=== PATIENT | female | born 1945 | race Caucasian/White ===

== ENCOUNTER → 2016-04-22 | Outpatient (CLI) | payer MEDICARE, BC ==
--- NOTE | 2016-04-22 17:08 | CT ---
EXAMINATION TYPE: CT abdomen pelvis w con DATE OF EXAM: 04/22/2016 5:01 PM COMPARISON: NONE HISTORY: Abdominal distension after eating. History of ulcerative colitis with total colectomy CT DLP: 784.8 mGycm CONTRAST: CT scan of the abdomen and pelvis is performed with Oral Contrast and with IV Contrast, patient injec alma with 100 mL of Omnipaque 300. FINDINGS: LUNG BASES-: No visible nodule. No infiltrate. Nodular pleural thickening right lung base. LIVER/GB: Fatty liver. Cystic lesion dome of the liver measuring 1.5 cm. No calcified gallstones. N o solid space occupying hepatic lesion. Biliary tree is of normal caliber. PANCREAS: No inflammation. No distinct mass. SPLEEN: No splenic enlargement. No lesion seen. ADRENALS: No nodule. No thickening. KIDNEYS/BLADDER: No hydronephrosis. No nephrolithiasis. Bilateral renal cystic changes. No solid r enal lesions identified. Urinary bladder grossly unremarkable. BOWEL: Normal bowel caliber. No inflammation. Right lower quadrant ostomy with parastomal hernia. No evidence for incarceration or obstruction. GENITAL ORGANS: No gross abnormality. LYMPH NODES: No greater than 1cm abdominal or pelvic lymph nodes are appreciated. AORTA: No significant abnormality. OSSEOUS STRUCTURES: No significant abnormality is seen. OTHER: No significant additional abnormality is seen. IMPRESSION: 1. Right lower quadrant ostomy with parastomal hernia. No evidence for incarceration or obstruction. 2. Fatty liver. 3. Cystic lesion dome of the liver. 4. Nodular pleural thickening right lower lobe.
--- NOTE | 2016-04-24 08:55 | MM ---
Reason for exam: screening (asymptomatic). Last mammogram was performed 1 year and 3 months ago. History: Patient is postmenopausal. Benign US biopsy breast VAD LT of the left breast, January 24, 2015. Stereotactic core biopsy of the left breast, February 20, 2004. Benign cyst aspiration of the left breast, January 20, 2004. Core biopsy of the left breast. 2 excisional biopsies of the left breast. Took estrogen for 1 year beginning at age 55. Took progesterone for 1 year beginning at age 55. Physical Findings: A clinical breast exam by your physician is recommended on an annual basis and results should be correlated with mammographic findings. MG 3D Screening Mammo W/Cad Bilateral CC and MLO view(s) were taken. Prior study comparison: January 24, 2015, left breast MG diagnostic mammo LT wo CAD. December 28, 2014, left breast MG work up mamm w CAD LT. There are scattered fibroglandular densities. No significant changes when compared with prior studies. ASSESSMENT: Benign, BI-RAD 2 RECOMMENDATION: Routine screening mammogram of both breasts in 1 year.
== END | disposition home or self-care (01) ==
LOC: RADCTMAIN 16:19
PROVIDERS: ATTEND Family Medicine
DX: Z12.31 Encounter for screening mammogram for malignant neoplasm of breast (principal); K76.0 Fatty (change of) liver, not elsewhere classified; K76.89 Other specified diseases of liver; K43.5 Parastomal hernia without obstruction or gangrene
CPT/HCPCS: 77063; 74177; G0202; Q9967

== ENCOUNTER → 2016-05-06 | Outpatient (CLI) | payer MEDICARE, BC ==
[2016-05-06 15:47] LABS: Blood Urea Nitrogen 13 mg/dL (7-17); Non-African American GFR(MDRD) >60 (>60 ml/min/1.73 sqM)
--- NOTE | 2016-05-06 16:26 | CT ---
EXAMINATION TYPE: CT chest w con DATE OF EXAM: 05/06/2016 4:14 PM COMPARISON: Previous CT scan of the abdomen and pelvis dated 04/22/2016 HISTORY: PT STATES OF LUNG NODULES FOUND ON ABDOMEN PELVIS STUDY DONE ON 04/22/16. CT DLP: 377.2 mGycm Automated exposure control for dose reduction was used. CONTRAST: CT scan of the chest is performed with IV Contrast, patient injected with 100 mL of Omnipaque 300. FINDINGS: Once again, there is nodular pleural thickening at the right lung base. No discrete pleural -based mass is seen. No lung parenchymal masses seen. There is dependent atelectasis at the lung base s. There is no significant axillary, internal mammary, mediastinal or hilar adenopathy. The heart is min imally enlarged. There is no pleural or pericardial fluid. There are multiple, simple appearing renal cysts bilaterally. There is a 1.5 cm low attenuating lesio n in the dome of the liver. This does not meet the requirements of a simple cyst. There is hypertrophic spondylosis within the spine. IMPRESSION: 1. Nodular pleural thickening, right lung base without pleural-based mass. 2. Simple appearing, bilateral renal cysts. 3. Lesion in the dome of the liver on the right does not meet the requirements of a simple cyst. Ultr asound of the liver would be suggested. 4. Degenerative changes within the spine.
== END | disposition home or self-care (01) ==
LOC: RADCTMAIN 15:09
PROVIDERS: ATTEND Family Medicine
DX: J92.9 Pleural plaque without asbestos (principal)
CPT/HCPCS: 82565; 84520; 71260; 36415; Q9967

== ENCOUNTER 2016-07-04 17:45 | Emergency (ER) | payer MEDICARE, BC ==
[2016-07-04 17:49] VITALS: RESP 18; TEMP 97.7
[2016-07-04] MEDS ORDERED: ONDANSETRON 4 MG/2 ML VIAL IVP STA (17:54)
[2016-07-04] MEDS ORDERED: DICYCLOMINE 10 MG/ML 2 ML AMP IM STA (17:54)
[2016-07-04] MEDS ORDERED: SODIUM CHLORIDE 0.9% 1,000 ML IV STA (17:54)
[2016-07-04] MEDS ORDERED: FAMOTIDINE 20 MG/2 ML VIAL IV STA (17:55)
--- NOTE | 2016-07-04 18:00 | ED ---
General Adult HPI - General Chief complaint: Abdominal Pain Stated complaint: Diarrhea Time Seen by Provider: 07/04/16 17:50 Source: patient, RN notes reviewed Mode of arrival: ambulatory Limitations: no limitations - History of Present Illness Initial comments: Patient is a pleasant 70-year-old female presenting to the emergency department diarrhea. Symptoms have been present for the past 2 days. Patient is having episodes of watery stool. Patient is having nausea without vomiting. Patient occasionally has mild abdominal cramping. No pain at this time. Patient has had decreased urine output recently. No recent antibiotic use. Patient has had an ileostomy for 25 years. - Related Data Home Medications Medication Instructions Recorded Confirmed Allopurinol [Zyloprim] 300 mg PO DAILY 01/02/16 07/04/16 Metoprolol Tartrate [Lopressor] 100 mg PO BID 01/02/16 07/04/16 Omeprazole 20 mg PO BID 01/02/16 07/04/16 amLODIPine [Norvasc] 10 mg PO DAILY 01/02/16 07/04/16 Acetaminophen Tab [Tylenol Tab] 1,000 mg PO Q6HR PRN 07/04/16 07/04/16 Warfarin [Coumadin] 2.5 mg PO MOTH 07/04/16 07/04/16 Warfarin [Coumadin] 5 mg PO SUTUWEFRSA 07/04/16 07/04/16 traMADol HCL [Ultram] 50 mg PO Q6H PRN 07/04/16 07/04/16 Previous Rx's Medication Instructions Recorded Dicyclomine [Bentyl] 20 mg PO QID PRN #12 tablet 07/04/16 Ondansetron Odt [Zofran Odt] 4 mg PO Q8HR PRN #10 tab 07/04/16 Allergies Allergy/AdvReac Type Severity Reaction Status Date / Time No Known Allergies Allergy Verified 07/04/16 18:03 Review of Systems ROS Statement: Those systems with pertinent positive or pertinent negative responses have been documented in the HPI. ROS Other: All systems not noted in ROS Statement are negative. Constitutional: Denies: fever Eyes: Denies: eye pain ENT: Denies: ear pain Respiratory: Denies: cough Cardiovascular: Denies: chest pain Endocrine: Denies: fatigue Gastrointestinal: Reports: nausea, diarrhea. Denies: vomiting Genitourinary: Reports: urgency Musculoskeletal: Denies: back pain Skin: Denies: rash Neurological: Denies: weakness Past Medical History Past Medical History: Atrial Fibrillation, GERD/Reflux Additional Past Medical History / Comment(s): gout, ulcerative colitis History of Any Multi-Drug Resistant Organisms: None Reported Past Surgical History: Tonsillectomy Additional Past Surgical History / Comment(s): ileostomy Past Psychological History: No Psychological Hx Reported Smoking Status: Never smoker Past Alcohol Use History: None Reported Past Drug Use History: None Reported General Exam Limitations: no limitations General appearance: alert, in no apparent distress Head exam: Present: atraumatic Eye exam: Present: normal appearance, PERRL ENT exam: Present: normal oropharynx Neck exam: Present: normal inspection Respiratory exam: Present: normal lung sounds bilaterally Cardiovascular Exam: Present: regular rate, normal rhythm GI/Abdominal exam: Present: soft, normal bowel sounds. Absent: distended, tenderness, guarding, rebound, rigid Extremities exam: Present: normal inspection. Absent: pedal edema, calf tenderness Neurological exam: Present: alert Psychiatric exam: Present: normal affect, normal mood Skin exam: Absent: rash Course Vital Signs 07/04/16 17:47 Temperature 97.7 F Pulse Rate 94 Respiratory 18 Rate Blood Pressure 117/76 O2 Sat by Pulse 96 Oximetry Medical Decision Making - Medical Decision Making Patient reevaluated and is starting to feel better. Patient does have mild dehydration. Patient was provided 1 L fluid bolus. Patient is comfortable with discharge. Abdomen soft and nontender. - Lab Data Result diagrams: 07/04/16 18:30 07/04/16 18:30 Lab Results 07/04/16 07/04/16 Range/Units 18:30 18:30 WBC 14.4 H (3.8-10.6) k/uL RBC 5.87 H (3.80-5.40) m/uL Hgb 17.5 H (11.4-16.0) gm/dL Hct 53.4 H (34.0-46.0) % MCV 91.0 (80.0-100.0) fL MCH 29.9 (25.0-35.0) pg MCHC 32.8 (31.0-37.0) g/dL RDW 14.2 (11.5-15.5) % Plt Count 313 (150-450) k/uL Neutrophils % 91 % Lymphocytes % 6 % Monocytes % 3 % Eosinophils % 1 % Basophils % 0 % Neutrophils # 13.0 H (1.3-7.7) k/uL Lymphocytes # 0.8 L (1.0-4.8) k/uL Monocytes # 0.4 (0-1.0) k/uL Eosinophils # 0.1 (0-0.7) k/uL Basophils # 0.0 (0-0.2) k/uL Sodium 144 (137-145) mmol/L Potassium 3.5 (3.5-5.1) mmol/L Chloride 102 (98-107) mmol/L Carbon Dioxide 24 (22-30) mmol/L Anion Gap 18 mmol/L BUN 29 H (7-17) mg/dL Creatinine 1.74 H (0.52-1.04) mg/dL Est GFR (MDRD) Af Amer 35 (>60 ml/min/1.73 sqM) Est GFR (MDRD) Non-Af 29 (>60 ml/min/1.73 sqM) Glucose 160 H (74-99) mg/dL Calcium 10.7 H (8.4-10.2) mg/dL Total Bilirubin 1.0 (0.2-1.3) mg/dL AST 27 (14-36) U/L ALT 32 (9-52) U/L Alkaline Phosphatase 90 (38-126) U/L Total Protein 8.8 H (6.3-8.2) g/dL Albumin 5.1 H (3.5-5.0) g/dL Amylase 80 (30-110) U/L Lipase 128 (23-300) U/L - Radiology Data Radiology results: image reviewed (Abdominal x-ray shows no acute process) Disposition Clinical Impression: Diarrhea Disposition: HOME SELF-CARE Condition: Stable Instructions: Acute Nausea and Vomiting (ED), Acute Diarrhea (ED) Additional Instructions: Please follow-up with primary care physician in the next couple of days for recheck. Please also follow-up to adult neurologist as planned. Return for fever, abdominal pain, uncontrolled diarrhea, uncontrolled vomiting, worsening symptoms or other concerns. Prescriptions: Dicyclomine [Bentyl] 20 mg PO QID PRN #12 tablet PRN Reason: Pain Ondansetron Odt [Zofran Odt] 4 mg PO Q8HR PRN #10 tab PRN Reason: Nausea Referrals: Byorn,Raghav, MD [Primary Care Provider] - 1-2 days
[2016-07-04 18:52] LABS: Basophils % (A) 0 %; CHCM 33.2; Eosinophils # (A) 0.1 k/uL (0-0.7); Eosinophils % (A) 1 %; HCT 53.4 % (34.0-46.0); HGB 17.5 gm/dL (11.4-16.0); Luc % (Auto) 1; Lymphocytes # (A) 0.8 k/uL (1.0-4.8); Lymphocytes % (A) 6 %; MCH 29.9 pg (25.0-35.0); MCHC 32.8 g/dL (31.0-37.0); Mean Platelet Volume 6.6; Monocytes # (A) 0.4 k/uL (0-1.0); Monocytes % (A) 3 %; Neutrophils % (A) 91 %; RBC 5.87 m/uL (3.80-5.40); RDW 14.2 % (11.5-15.5); WBC 14.4 k/uL (3.8-10.6); WBC (Perox) 14.63
[2016-07-04 19:03] LABS: Calcium 10.7 mg/dL (8.4-10.2); Potassium 3.5 mmol/L (3.5-5.1); Total Protein 8.8 g/dL (6.3-8.2)
--- NOTE | 2016-07-04 19:07 | XR ---
EXAMINATION TYPE: XR KUB DATE OF EXAM: 07/04/2016 7:03 PM COMPARISON: 07/31/2012 HISTORY: Fever and diarrhea TECHNIQUE: 2 views FINDINGS: There is no sign of intestinal obstruction or pneumoperitoneum. Fecal pattern is normal. Th ere is no sign of a mass. There are no pathologic calcifications over the kidneys. IMPRESSION: Nonacute abdomen. No change.
[2016-07-04 19:57] VITALS: BP 131/70; PULSE 69
== END 2016-07-04 19:55 | disposition home or self-care (01) ==
LOC: EC 17:45
DX: R19.7 Diarrhea, unspecified (principal); E86.0 Dehydration; R10.9 Unspecified abdominal pain; R11.0 Nausea; I48.91 Unspecified atrial fibrillation; K21.9 Gastro-esophageal reflux disease without esophagitis; M10.9 Gout, unspecified; Z79.01 Long term (current) use of anticoagulants; Z79.899 Other long term (current) drug therapy
CPT/HCPCS: 99284; 96374; 96375; 96361; 96372; 51798; 36415; 80053; 82150; 83690; 85025; 74000; J0500; J2405

== ENCOUNTER → 2016-07-10 | Outpatient (CLI) | payer MEDICARE, BC ==
--- NOTE | 2016-07-10 08:17 | US ---
EXAMINATION TYPE: US kidneys/renal and bladder DATE OF EXAM: 07/10/2016 7:07 AM COMPARISON: CT in PACS CLINICAL HISTORY: N17.9 Acute Renal Failure. Pt states urinary frequency, h/o bilat renal cysts EXAM MEASUREMENTS: Right Kidney: 11.2 x 6.4 x 4.7 cm Left Kidney: 10.2 x 6.0 x 5.2 cm Right Kidney: No evidence of hydro, multicystic, largest medial= 5.0 x 4.0 x 5.5 cm Left Kidney: No evidence of hydro, multicystic, largest at mid= 3.1 x 3.0 x 3.2 cm Bladder: wnl Bilateral Jets seen: No There is no evidence for hydronephrosis at this point in time. No nephrolithiasis is seen. Bilateral cysts as noted above. The urinary bladder is anechoic. Bilateral ureteral jets are seen. IMPRESSION: Bilateral renal cystic changes as noted.
== END | disposition home or self-care (01) ==
LOC: RADUSWWP 06:48
PROVIDERS: ATTEND Family Medicine
DX: N28.1 Cyst of kidney, acquired (principal)
CPT/HCPCS: 76770

== ENCOUNTER 2016-07-31 08:13 | Day surgery (SDC) | payer MEDICARE, BC ==
[~2016-07-31 08:13] MED LIST: LACTATED RINGERS 1,000 ML IV SCH; LIDOCAINE 1% 20 ML VIAL (10MG/ML) FOR IV START INTRADERMA PRN
[2016-07-31 08:55] VITALS: TEMP 97.8
[2016-07-31] MEDS ORDERED: LIDOCAINE 1% INJ 10MG/ML (20 ML MDV) ONE (09:37)
[2016-07-31] MEDS ORDERED: PROPOFOL 10 MG/ML 20 ML VIAL IV ONE (09:37)
[2016-07-31 09:45] LABS: Partial Thromboplastin Time 23.4 sec (22.0-30.0); Prothrombin Time 10.1 sec (9.0-12.0)
--- NOTE | 2016-07-31 09:50 | P.PCN ---
Date of Procedure: 07/31/16 Procedure(s) Performed: BRIEF HISTORY: Patient is a 71-year-old, pleasant, white female, scheduled for an elective upper endoscopy as part of evaluation of persistent epigastric pain for the last several months duration. She complains of post banding abdominal bloating and weight loss of 30 pounds in the last 6 months. Because of the symptoms she is scheduled for an upper endoscopy to evaluate further. She was given a trial of Prilosec 20 mg daily for history of GERD which helped the heartburn.. PROCEDURE PERFORMED: Esophagogastroduodenoscopy with biopsy. PREOPERATIVE DIAGNOSIS: Epigastric pain, abdominal bloating and progressive weight loss of 6 months duration. IV sedation per anesthesia. PROCEDURE: After informed consent was obtained, the patient was brought into the endoscopy unit. IV sedation was administered by Anesthesia under continuous monitoring. Initially the Olympus GIF-140 video endoscope was inserted into the mouth. Esophagus intubated without any difficulty. It was gradually advanced into the stomach and duodenum and carefully examined. The bulb and the second part of the duodenum appeared normal. Biopsies were done from the cecum duodenum to rule out celiac disease. The scope at this time was withdrawn to the stomach, adequately insufflated with air, and upon careful examination, mucosa of the antrum had mild diffuse gastritis and biopsies were done from this area. The, body, cardia and the fundus appeared normal. The scope was then withdrawn into the esophagus. The GE junction was located at 39 cm from the incisors. Small hiatal hernia noted. The esophagus appeared normal. There were no erosions or ulcerations seen and the patient tolerated the procedure well. IMPRESSION: 1. Mild antral gastritis. 2. Small hiatal hernia but no evidence of esophagitis or Mckeon's esophagus. RECOMMENDATIONS: The findings of this examination were discussed with the patient as well as her family. She was advised to follow with the biopsy results. She will continue with her current medications and she'll follow up in office in 3-4 weeks.
[2016-07-31 10:01] VITALS: BP 115/64; PULSE 87; RESP 18
== END 2016-07-31 10:39 | disposition home or self-care (01) ==
LOC: ORWHC2ENDO 08:13
PROVIDERS: ATTEND Internal Medicine Gastroenterology
DX: K29.50 Unspecified chronic gastritis without bleeding (principal); K44.9 Diaphragmatic hernia without obstruction or gangrene; K21.9 Gastro-esophageal reflux disease without esophagitis; I10 Essential (primary) hypertension; I48.91 Unspecified atrial fibrillation; M10.9 Gout, unspecified; Z79.01 Long term (current) use of anticoagulants; Z79.899 Other long term (current) drug therapy
CPT/HCPCS: 88305; 85610; 85730; 88342; 43239; J2001; J2704

== ENCOUNTER → 2016-12-05 | Outpatient (CLI) | payer MEDICARE, BC ==
[2016-12-05 16:38] LABS: Anion Gap 13 mmol/L; Blood Urea Nitrogen 18 mg/dL (7-17); Calcium 9.8 mg/dL (8.4-10.2); Carbon Dioxide 25 mmol/L (22-30); Chloride 106 mmol/L (98-107); Glucose 114 mg/dL (74-99); Non-African American GFR(MDRD) >60 (>60 ml/min/1.73 sqM); Potassium 3.7 mmol/L (3.5-5.1); Sodium 144 mmol/L (137-145)
[2016-12-05 16:41] LABS: Basophils % (A) 0 %; CH 30.6; CHCM 33.5; Eosinophils # (A) 0.1 k/uL (0-0.7); Eosinophils % (A) 1 %; HDW 2.91; Luc # (Auto) 0.12; Luc % (Auto) 1; Lymphocytes # (A) 1.4 k/uL (1.0-4.8); Lymphocytes % (A) 14 %; MCH 29.5 pg (25.0-35.0); Mean Platelet Volume 7.3; Monocytes # (A) 0.3 k/uL (0-1.0); Monocytes % (A) 3 %; Neutrophils # (A) 8.1 k/uL (1.3-7.7); Neutrophils % (A) 81 %; RDW 15.1 % (11.5-15.5); WBC 10.1 k/uL (3.8-10.6)
== END | disposition home or self-care (01) ==
LOC: LABPAT 15:27
PROVIDERS: ATTEND Physician Assistant
DX: Z01.812 Encounter for preprocedural laboratory examination (principal); I10 Essential (primary) hypertension; N20.1 Calculus of ureter; Z79.899 Other long term (current) drug therapy
CPT/HCPCS: 80048; 85025

== ENCOUNTER 2016-12-09 07:48 | Day surgery (SDC) | payer MEDICARE, BC ==
[2016-12-05 14:35] VITALS: BMI 27.2
[~2016-12-09 07:48] MED LIST changes: +DEXAMETHASONE SOD PHOSPHATE 10 MG/ML 1 ML VIAL IV ONE; +HYDROmorphone 1 MG/ML 1 ML SYRINGE IVP PRN; -LIDOCAINE 1% 20 ML VIAL (10MG/ML) FOR IV START INTRADERMA PRN; +ONDANSETRON 4 MG/2 ML VIAL IVP ONE; +Pre Op ABX Message 1 EACH MISC MISCELLANE ONE
--- NOTE | 2016-12-09 07:48 | XR ---
Abdomen HISTORY: Left-sided kidney stone Frontal view of the abdomen on 2 images correlated to prior abdomen 07/04/2016 Lung bases are clear. No evident pneumoperitoneum or bowel obstruction. Degenerative disc changes are present in the visualized spine. Overlying bowel gas may obscure underlying detail. Calcification ov erlying the kidneys not identified with certainty. Phleboliths noted in the pelvis. IMPRESSION: Nonspecific findings described above
[2016-12-09 08:16] VITALS: BP 142/83; PULSE 80; RESP 16; TEMP 99.2
[2016-12-09] MEDS ORDERED: LIDOCAINE 1% 20 ML VIAL (10MG/ML) FOR IV START INTRADERMA ONE (08:34)
[2016-12-09 08:56] LABS: INR 1.2 (<1.2); Prothrombin Time 11.9 sec (9.0-12.0)
--- NOTE | 2016-12-09 09:29 | P.PN ---
Subjective Principal diagnosis: The patient came for shockwave lithotripsy today. She has a history of stones. She was seen in the office 2 weeks ago with a KUB from [facility] which showed a 16 x 9 mm left renal pelvic stone. The stone was not easily seen today. I reviewed her CAT scan from 04/22/2016 here at [facility] and there is no stones in the kidney. Given that she had no stone at all in March it is unlikely that she would've grown that size of stone over the last 8 months. I will not proceed with shockwave lithotripsy today. She'll need a follow-up CAT scan to see if indeed there is even any stone seen. Unfortunately I do not have access to that KUB from November 13 of this year. The patient understands. She did not receive any anesthetic. Objective - Vital Signs Vital signs: Vital Signs Temp 99.2 F 12/09/16 08:14 Pulse 80 12/09/16 08:14 Resp 16 12/09/16 08:14 BP 142/83 12/09/16 08:14 Pulse Ox 95 12/09/16 08:14 Intake & Output 12/08/16 12/09/16 12/09/16 18:59 06:59 18:59 Intake Total 300 Balance 300 Intake: IV 300 - Labs Labs: Abnormal Lab Results - Last 24 Hours (Table) 12/09/16 Range/Units 08:30 INR 1.2 H (<1.2)
== END 2016-12-09 09:49 | disposition home or self-care (01) ==
LOC: ORWHC2ENDO 07:48
PROVIDERS: ATTEND Urology
DX: N20.0 Calculus of kidney (principal); Z53.8 Procedure and treatment not carried out for other reasons; I10 Essential (primary) hypertension; Z79.2 Long term (current) use of antibiotics; Z79.01 Long term (current) use of anticoagulants; Z79.891 Long term (current) use of opiate analgesic; Z79.899 Other long term (current) drug therapy
CPT/HCPCS: 85610; 74000; 50590; J1100; J2405

== ENCOUNTER → 2016-12-26 | Outpatient (CLI) | payer MEDICARE, BC ==
[2016-12-26 08:50] LABS: Blood Urea Nitrogen 15 mg/dL (7-17); Non-African American GFR(MDRD) >60 (>60 ml/min/1.73 sqM)
--- NOTE | 2016-12-26 10:30 | CT ---
EXAMINATION TYPE: CT chest w con, CT abdomen pelvis wo con DATE OF EXAM: 12/26/2016 COMPARISON: 05/06/2016 and abdomen pelvis dated 04/22/2016 HISTORY: Lung nodule (accession [id number]), Renal stone (accession [id number]) CT DLP: 758.35 (accession [id number]), 1117.80 (accession [id number]) mGycm. Automated Exposure Control for Dose Reduction was Utilized. TECHNIQUE: CT scan of the thorax is performed following with IV Contrast, patient injected with 100 ml mL of Omnipaque 300. Abdominal and pelvic CT was performed without contrast. FINDINGS: CHEST: LUNGS: Nodular pleural thickening along the right posterior lower lobe is measured on series 8 image 39 elongated over 3.4 cm. This appears similar in comparison to the prior exam. No calcifications are seen in association. There is redemonstration of surrounding atelectasis and additional minimal scat tered areas of bibasilar subsegmental atelectasis. No pulmonary mass or new pulmonary nodule is ident ified. The lungs are grossly clear, there is no concerning parenchymal mass or nodule identified. T here is no pleural effusion or pneumothorax seen. The tracheobronchial tree is patent. MEDIASTINUM: There are no greater than 1 cm hilar or mediastinal lymph nodes. No pericardial effusi on is seen. OTHER: A single 1.1 x 1.2 cm hypoattenuated left thyroid nodule is seen within an enlarged substernal thyroid gland. Thyroid ultrasound could be performed for further evaluation although this appears st able in comparison to the prior exam of 05/06/2016. ABDOMEN AND PELVIS: Lack of intravenous contrast within the abdomen limits evaluation of the hollow a nd solid viscera. LUNG BASES: No significant abnormality is appreciated. LIVER/GB: 1.3 cm hepatic cyst is seen at the margin of segment 8 and segment 7 as well as smaller hyp oattenuated lesions within segment 7 and segment 8 that are subcentimeter (4 to 5 mm) and too small t o accurately characterize. Decreased attenuation of the hepatic parenchyma is seen diffusely compatib le with hepatic steatosis. No intrahepatic biliary duct dilatation. PANCREAS: No significant abnormality is seen. SPLEEN: No significant abnormality is seen. ADRENALS: No significant abnormality is seen. KIDNEYS: Multiple fluid attenuated simple cortically based renal cysts, a few with thin peripheral pu nctate calcifications are seen with the largest exophytically emanating from the right anterior infer ior pole measuring 4.5 x 4.7 cm. However also from the right lower pole just inferior to the largest cyst there is a 1.4 cm solid-appearing renal mass on series 4 image 41 with central area of hypodensi ty that does not appear to have Hounsfield unit of fat. Bilateral renal sinus cysts are also apprecia alma as well as a punctate 1 mm left mid pole nonobstructing renal calculus. No evidence of hydronephr osis, right-sided nephrolithiasis, or perinephric fat stranding. FREE AIR: No free air is visualized RETROPERITONEAL ADENOPATHY: None visualized REPRODUCTIVE ORGANS: No significant abnormality is seen URINARY BLADDER: No significant abnormality is seen. PELVIC ADENOPATHY: None visualized. OSSEOUS STRUCTURES: Postsurgical changes are seen of the lower lumbar spine in addition to degenerati ve changes of the thoracolumbar and lumbosacral spine. Compression deformity of the L2 vertebral body is present with approximately 6 mm retropulsion of the superior endplate into the spinal canal creat ing moderate spinal canal stenosis. BOWEL: Right-sided ostomy contains loops of small bowel in addition to the ostomy loop (parastomal h ernia). No bowel enlargement to suggest incarceration or obstruction. OTHER: Multilevel degenerative changes are seen of the thoracolumbar and lumbosacral spine. IMPRESSION: 1. UNCHANGED NODULAR PLEURAL THICKENING OF THE RIGHT POSTERIOR LOWER PLEURAL SURFACE. NO NEW PULMONAR Y NODULE OR MASS. NO ADENOPATHY WITHIN THE CHEST, ABDOMEN OR PELVIS. 2. INCOMPLETELY CHARACTERIZED SOLID RIGHT LOWER POLE 1.4 CM MASS FOR WHICH FURTHER EVALUATION WITH DY NAMIC CONTRAST-ENHANCED CT ABDOMEN OR MRI (RENAL MASS PROTOCOL) IS RECOMMENDED. 3. PUNCTATE NONOBSTRUCTING 2 MM LEFT MIDPOLE RENAL CALCULUS. 4. HEPATIC STEATOSIS, HEPATIC CYSTS AND SMALLER HYPOATTENUATED HEPATIC LESIONS THAT ARE TOO SMALL TO ACCURATELY CHARACTERIZE BUT LIKELY REPRESENT HEPATIC CYSTS. 5. BILATERAL ADDITIONAL SIMPLE APPEARING RENAL CYSTS AND RENAL SINUS CYSTS. 6. 1.2 CM LEFT THYROID NODULE WHICH COULD BE FURTHER EVALUATED WITH THYROID ULTRASOUND IF CLINICALLY INDICATED.
== END | disposition home or self-care (01) ==
LOC: RADCTMAIN 07:50
PROVIDERS: ATTEND Urology
DX: N20.0 Calculus of kidney (principal); J92.9 Pleural plaque without asbestos; K76.0 Fatty (change of) liver, not elsewhere classified; J98.4 Other disorders of lung
CPT/HCPCS: 82565; 84520; 71260; 74176; 36415; Q9967

== ENCOUNTER → 2017-04-23 | Outpatient (CLI) | payer MEDICARE, BC ==
--- NOTE | 2017-04-25 07:07 | MM ---
Reason for exam: screening (asymptomatic). Last mammogram was performed 1 year ago. History: Patient is postmenopausal. Benign US biopsy breast VAD LT of the left breast, January 24, 2015. Stereotactic core biopsy of the left breast, February 20, 2004. Benign cyst aspiration of the left breast, January 20, 2004. Core biopsy of the left breast. 2 excisional biopsies of the left breast. Took estrogen for 1 year beginning at age 55. Took progesterone for 1 year beginning at age 55. Physical Findings: A clinical breast exam by your physician is recommended on an annual basis and results should be correlated with mammographic findings. MG 3D Screening Mammo W/Cad Bilateral CC and MLO view(s) were taken. Prior study comparison: April 22, 2016, bilateral MG 3d screening mammo w/cad. January 24, 2015, left breast MG diagnostic mammo LT wo CAD. The breast tissue is heterogeneously dense. This may lower the sensitivity of mammography. Lateral right breast nodule was present back on 2012. No significant changes when compared with prior studies. ASSESSMENT: Negative, BI-RAD 1 RECOMMENDATION: Routine screening mammogram of both breasts in 1 year.
== END | disposition home or self-care (01) ==
LOC: RADMAMWWP 09:19
PROVIDERS: ATTEND Family Medicine
DX: Z12.31 Encounter for screening mammogram for malignant neoplasm of breast (principal)
CPT/HCPCS: 77063; 77067

== ENCOUNTER 2017-10-24 11:25 | Observation (INO) | payer MEDICARE, BC ==
[2017-10-24] MEDS ORDERED: levETIRAcetam IV 1,000 MG in SALINE 1 100ML.BAG IVPB STA (11:34)
--- NOTE | 2017-10-24 12:05 | ED ---
General Adult HPI - General Chief complaint: Chest Pain Stated complaint: Chest/jaw pain Time Seen by Provider: 10/24/17 11:34 Source: patient, RN notes reviewed, old records reviewed Mode of arrival: wheelchair Limitations: no limitations - History of Present Illness Initial comments: 72-year-old female history of hypertension and atrial fibrillation presents for evaluation of chest pain. Patient has had intermittent chest pressure over the past 2 weeks. This is been nearly every day. Pain has been at rest. She also complains of exertional dyspnea. Patient reports trauma pain associated with her chest pressure. Denies nausea or vomiting. She does complain of some diaphoresis with these episodes. No abdominal pain. No fever or chills. No cough. Denies lower extremity swelling at the time my evaluation, however she states she has had some swelling within the past week. No history of CAD, no history of heart failure. Patient is completely pain-free at the time my evaluation. - Related Data Home Medications Medication Instructions Recorded Confirmed Allopurinol [Zyloprim] 300 mg PO DAILY 01/02/16 10/24/17 Metoprolol Tartrate [Lopressor] 100 mg PO BID 01/02/16 10/24/17 Omeprazole 20 mg PO BID 01/02/16 10/24/17 amLODIPine [Norvasc] 10 mg PO DAILY 01/02/16 10/24/17 Warfarin [Coumadin] 2.5 mg PO SUTUWEFR 07/04/16 10/24/17 Warfarin [Coumadin] 5 mg PO MOTHSA 07/04/16 10/24/17 traMADol HCL [Ultram] 50 mg PO Q6H PRN 07/04/16 10/24/17 Ergocalciferol [Vitamin D2] 50,000 unit PO Q14D 10/24/17 10/24/17 L.acidoph,Paracasei, B.lactis 1 cap PO DAILY 10/24/17 10/24/17 [Probiotic] Magnesium Gluconate [Magonate] 500 mg PO DAILY 10/24/17 10/24/17 Multivitamins, Thera [Multivitamin 1 tab PO DAILY 10/24/17 10/24/17 (formulary)] Allergies Allergy/AdvReac Type Severity Reaction Status Date / Time No Known Allergies Allergy Verified 10/24/17 12:04 Review of Systems ROS Statement: Those systems with pertinent positive or pertinent negative responses have been documented in the HPI. ROS Other: All systems not noted in ROS Statement are negative. Past Medical History Past Medical History: Atrial Fibrillation, GERD/Reflux, Hypertension Additional Past Medical History / Comment(s): Hx of Ulcerative Colitis and gout History of Any Multi-Drug Resistant Organisms: None Reported Past Surgical History: Section, Tonsillectomy Additional Past Surgical History / Comment(s): ileostomy, COLONOSCOPY, EGD, BILAT CATARACTS Past Anesthesia/Blood Transfusion Reactions: No Reported Reaction Past Psychological History: No Psychological Hx Reported Smoking Status: Never smoker Past Alcohol Use History: None Reported Past Drug Use History: None Reported - Past Family History Mother Family Medical History: Cancer Father Family Medical History: Cancer General Exam Limitations: no limitations General appearance: alert, in no apparent distress Head exam: Present: atraumatic, normocephalic Eye exam: Present: normal appearance, PERRL, EOMI ENT exam: Present: normal exam Neck exam: Present: normal inspection. Absent: tenderness, meningismus Respiratory exam: Present: normal lung sounds bilaterally. Absent: respiratory distress, wheezes Cardiovascular Exam: Present: regular rate, normal rhythm GI/Abdominal exam: Present: soft. Absent: distended, tenderness, guarding Extremities exam: Present: normal inspection, normal capillary refill. Absent: pedal edema, joint swelling, calf tenderness Neurological exam: Present: alert, oriented X3, CN II-XII intact. Absent: motor sensory deficit Psychiatric exam: Present: normal affect, normal mood Skin exam: Present: warm, dry, intact. Absent: cyanosis, diaphoretic Course Vital Signs 10/24/17 10/24/17 10/24/17 11:27 12:30 13:30 Temperature 98.3 F Pulse Rate 77 74 75 Respiratory 18 20 20 Rate Blood Pressure 148/97 158/72 156/65 O2 Sat by Pulse 98 96 99 Oximetry EKG Findings - EKG Comments: EKG Findings:: EKG: Normal sinus rhythm, rate of 75, W[place] interval 154, QRS duration 76, QTC [address] segment elevation or depression Medical Decision Making - Medical Decision Making 72-year-old presenting with intermittent chest pain over the past one week. EKG is nonischemic. Chest x-ray negative for acute cardiopulmonary disease. CBC is unremarkable, INR therapeutic 2.1, troponin is negative. Patient will be observed for serial cardiac enzymes and cardiology consultation. - Lab Data Result diagrams: 10/24/17 11:57 10/24/17 11:57 Lab Results 10/24/17 10/24/17 10/24/17 Range/Units 11:57 11:57 11:57 WBC 10.0 (3.8-10.6) k/uL RBC 5.09 (3.80-5.40) m/uL Hgb 14.9 (11.4-16.0) gm/dL Hct 44.9 (34.0-46.0) % MCV 88.3 (80.0-100.0) fL MCH 29.2 (25.0-35.0) pg MCHC 33.1 (31.0-37.0) g/dL RDW 14.5 (11.5-15.5) % Plt Count 238 (150-450) k/uL Neutrophils % 80 % Lymphocytes % 13 % Monocytes % 3 % Eosinophils % 2 % Basophils % 0 % Neutrophils # 8.1 H (1.3-7.7) k/uL Lymphocytes # 1.3 (1.0-4.8) k/uL Monocytes # 0.3 (0-1.0) k/uL Eosinophils # 0.2 (0-0.7) k/uL Basophils # 0.0 (0-0.2) k/uL PT (9.0-12.0) sec INR (<1.2) APTT (22.0-30.0) sec Sodium 141 (137-145) mmol/L Potassium 4.4 (3.5-5.1) mmol/L Chloride 106 (98-107) mmol/L Carbon Dioxide 27 (22-30) mmol/L Anion Gap 8 mmol/L BUN 16 (7-17) mg/dL Creatinine 0.69 (0.52-1.04) mg/dL Est GFR (CKD-EPI)AfAm >90 (>60 ml/min/1.73 sqM) Est GFR (CKD-EPI)NonAf 89 (>60 ml/min/1.73 sqM) Glucose 107 H (74-99) mg/dL Calcium 9.4 (8.4-10.2) mg/dL Magnesium 1.8 (1.6-2.3) mg/dL Total Bilirubin 0.6 (0.2-1.3) mg/dL AST 22 (14-36) U/L ALT 28 (9-52) U/L Alkaline Phosphatase 68 (38-126) U/L Total Creatine Kinase 58 (30-135) U/L CK-MB (CK-2) 0.8 (0.0-2.4) ng/mL CK-MB (CK-2) Rel Index 1.4 Troponin I <0.012 (0.000-0.034) ng/mL NT-Pro-B Natriuret Pep pg/mL Total Protein 6.9 (6.3-8.2) g/dL Albumin 4.1 (3.5-5.0) g/dL 10/24/17 10/24/17 Range/Units 11:57 11:57 WBC (3.8-10.6) k/uL RBC (3.80-5.40) m/uL Hgb (11.4-16.0) gm/dL Hct (34.0-46.0) % MCV (80.0-100.0) fL MCH (25.0-35.0) pg MCHC (31.0-37.0) g/dL RDW (11.5-15.5) % Plt Count (150-450) k/uL Neutrophils % % Lymphocytes % % Monocytes % % Eosinophils % % Basophils % % Neutrophils # (1.3-7.7) k/uL Lymphocytes # (1.0-4.8) k/uL Monocytes # (0-1.0) k/uL Eosinophils # (0-0.7) k/uL Basophils # (0-0.2) k/uL PT 19.1 H (9.0-12.0) sec INR 2.1 H (<1.2) APTT 29.6 (22.0-30.0) sec Sodium (137-145) mmol/L Potassium (3.5-5.1) mmol/L Chloride (98-107) mmol/L Carbon Dioxide (22-30) mmol/L Anion Gap mmol/L BUN (7-17) mg/dL Creatinine (0.52-1.04) mg/dL Est GFR (CKD-EPI)AfAm (>60 ml/min/1.73 sqM) Est GFR (CKD-EPI)NonAf (>60 ml/min/1.73 sqM) Glucose (74-99) mg/dL Calcium (8.4-10.2) mg/dL Magnesium (1.6-2.3) mg/dL Total Bilirubin (0.2-1.3) mg/dL AST (14-36) U/L ALT (9-52) U/L Alkaline Phosphatase (38-126) U/L Total Creatine Kinase (30-135) U/L CK-MB (CK-2) (0.0-2.4) ng/mL CK-MB (CK-2) Rel Index Troponin I (0.000-0.034) ng/mL NT-Pro-B Natriuret Pep 183 pg/mL Total Protein (6.3-8.2) g/dL Albumin (3.5-5.0) g/dL Disposition Clinical Impression: Chest pain Disposition: ADMITTED IP TO THIS [facility] Condition: Stable Is patient prescribed a controlled substance at d/c from ED?: No Referrals: Oskar Sánchez DO [Primary Care Provider] - 1-2 days Decision to Admit Reason: Admit from EC Decision Date: 10/24/17 Decision Time: 14:06
[2017-10-24 12:31] LABS: Basophils % (A) 0 %; Eosinophils # (A) 0.2 k/uL (0-0.7); Eosinophils % (A) 2 %; HCT 44.9 % (34.0-46.0); HGB 14.9 gm/dL (11.4-16.0); Lymphocytes # (A) 1.3 k/uL (1.0-4.8); Lymphocytes % (A) 13 %; MCH 29.2 pg (25.0-35.0); MCHC 33.1 g/dL (31.0-37.0); MCV 88.3 fL (80.0-100.0); Mean Platelet Volume 6.6; Monocytes # (A) 0.3 k/uL (0-1.0); Monocytes % (A) 3 %; Neutrophils # (A) 8.1 k/uL (1.3-7.7); Neutrophils % (A) 80 %; Platelet Count 238 k/uL (150-450); RBC 5.09 m/uL (3.80-5.40); RDW 14.5 % (11.5-15.5)
[2017-10-24 12:40] LABS: ALT 28 U/L (9-52); AST 22 U/L (14-36); Albumin 4.1 g/dL (3.5-5.0); Alkaline Phosphatase 68 U/L (38-126); Anion Gap 8 mmol/L; Blood Urea Nitrogen 16 mg/dL (7-17); Calcium 9.4 mg/dL (8.4-10.2); Carbon Dioxide 27 mmol/L (22-30); Chloride 106 mmol/L (98-107); Glucose 107 mg/dL (74-99); Magnesium 1.8 mg/dL (1.6-2.3); Potassium 4.4 mmol/L (3.5-5.1); Sodium 141 mmol/L (137-145); Total Bilirubin 0.6 mg/dL (0.2-1.3); Total Protein 6.9 g/dL (6.3-8.2)
[2017-10-24 12:42] LABS: INR 2.1 (<1.2); Partial Thromboplastin Time 29.6 sec (22.0-30.0); Prothrombin Time 19.1 sec (9.0-12.0)
[2017-10-24 12:49] LABS: Creatine Kinase 58 U/L (30-135)
[2017-10-24 13:02] LABS: Creatine Kinase MB 0.8 ng/mL (0.0-2.4); Troponin I <0.012 ng/mL (0.000-0.034)
--- NOTE | 2017-10-24 13:04 | XR ---
EXAMINATION TYPE: XR chest 2V DATE OF EXAM: 10/24/2017 COMPARISON: Chest CT dated 12/26/2016 HISTORY: Chest pain and weakness TECHNIQUE: Frontal and lateral views of the chest are obtained. FINDINGS: There is no focal air space opacity, pleural effusion, or pneumothorax seen. The cardiac silhouette size is within normal limits. There is mild diffuse osseous demineralization. Mild multi level degenerative changes of the thoracic spine are also noted. IMPRESSION: No acute cardiopulmonary process.
[2017-10-24] MEDS ORDERED: NALOXONE 0.4 MG/ML 1 ML VIAL IV PRN (14:02)
[2017-10-24] MEDS ORDERED: WARFARIN 2.5 MG TAB PO SCH (14:15)
--- NOTE | 2017-10-24 15:13 | P.CRDCN ---
History of Present Illness History of present illness: Mrs. Holbrook is a pleasant 72-year-old female past medical history significant for paroxysmal atrial fibrillation on long-term anticoagulation, hypertension and gastroesophageal reflux disease. She denies history of coronary artery disease, diabetes mellitus or dyslipidemia. She follows with Dr. Grijalva in the office. She states for the lip previous week or so she has been feeling symptoms of palpitations or fluttering in her chest. With these symptoms, she is also noticing a discomfort in her jaw, shortness of breath and mild dizziness. The symptoms began with no specific aggravating factor and vary in length. She has also noticed that she is more short of breath exertion , for example when she walks from the couch to the bathroom she has to stop to take a breath because she feels as though her breathing is labored. This is new for her and has not occurred in the past. At the time of exam she is seen resting comfortably in bed in no acute distress. She denies any further symptoms of ongoing chest pain, palpitations, shortness of breath or dizziness. She denies radiation of the pain to the arm or back. She does also denies PND , orthopnea, fever, chills or cough. EKG reveals sinus mechanism with no acute ST or T wave abnormalities noted. Chest x-ray is negative for an acute cardiopulmonary process. Laboratory data reviewed, hemoglobin 14.9, platelets 238, INR 2.1, potassium 4.4 , magnesium 1.8, proBNP 183 cardiac enzymes negative 1. Current cardiac medications include Coumadin, amlodipine 10 mg and Lopressor 100 mg twice a day. Most recent echocardiogram performed in the office 2014 reveals preserved left ventricular systolic function with ejection fraction 55-60%. Review of Systems At the time of my exam: CONSTITUTIONAL: Denies fever. Denies chills. EYES: Denies blurred vision. Denies vision changes. Denies eye pain. EARS, NOSE, MOUTH & THROAT: Denies headache. Denies sore throat. Denies ear pain. CARDIOVASCULAR: Denies chest pain. Denies shortness of breath. Denies orthopnea. Denies PND. Denies palpitations. RESPIRATORY: Denies cough. GASTROINTESTINAL: Denies abdominal pain. Denies diarrhea. Denies constipation. Denies nausea. Denies vomiting. MUSCULOSKELETAL: Denies myalgias. INTEGUMENTARY: Denies pruitis. Denies rash. NEUROLOGIC: Denies numbness. Denies tingling. Denies weakness. PSYCHIATRIC: Denies anxiety. Denies depression. ENDOCRINE: Denies fatigue. Denies weight change. Denies polydipsia. Denies polyurina. GENITOURINARY: Denies burning, hematuria or urgency with micturation. HEMATOLOGIC: Denies history of anemia. Denies bleeding. Past Medical History Past Medical History: Atrial Fibrillation, GERD/Reflux, Hypertension Additional Past Medical History / Comment(s): Hx of Ulcerative Colitis(ileostomy ) and gout, renal stone,uti, 2016 - vertebra/compression fx d/t fall when dancing. History of Any Multi-Drug Resistant Organisms: None Reported Past Surgical History: Section, Tonsillectomy Additional Past Surgical History / Comment(s): ileostomy, COLONOSCOPY, EGD, BILAT CATARACTS, lithrotripsy Past Anesthesia/Blood Transfusion Reactions: No Reported Reaction Additional Past Anesthesia/Blood Transfusion Reaction / Comment(s): blood transfusion in past-no reaction Past Psychological History: No Psychological Hx Reported Additional Psychological History / Comment(s): pt is independant, lives with ex and 2 adult sons. no medical equipment, no home care services Smoking Status: Never smoker Past Alcohol Use History: None Reported Past Drug Use History: None Reported - Past Family History Mother Family Medical History: Cancer Father Family Medical History: Cancer Medications and Allergies Home Medications Medication Instructions Recorded Confirmed Type Allopurinol [Zyloprim] 300 mg PO DAILY 01/02/16 10/24/17 History Metoprolol Tartrate [Lopressor] 100 mg PO BID 01/02/16 10/24/17 History Omeprazole 20 mg PO BID 01/02/16 10/24/17 History amLODIPine [Norvasc] 10 mg PO DAILY 01/02/16 10/24/17 History Warfarin [Coumadin] 2.5 mg PO SUTUWEFR 07/04/16 10/24/17 History Warfarin [Coumadin] 5 mg PO MOTHSA 07/04/16 10/24/17 History traMADol HCL [Ultram] 50 mg PO Q6H PRN 07/04/16 10/24/17 History Ergocalciferol [Vitamin D2] 50,000 unit PO Q14D 10/24/17 10/24/17 History L.acidoph,Paracasei, B.lactis 1 cap PO DAILY 10/24/17 10/24/17 History [Probiotic] Magnesium Gluconate [Magonate] 500 mg PO DAILY 10/24/17 10/24/17 History Multivitamins, Thera [Multivitamin 1 tab PO DAILY 10/24/17 10/24/17 History (formulary)] Allergies Allergy/AdvReac Type Severity Reaction Status Date / Time No Known Allergies Allergy Verified 10/24/17 12:04 Physical Exam Vitals: Vital Signs Temp Pulse Pulse Resp BP BP Pulse Ox 10/24/17 14:50 98.1 F 77 18 153/84 98 10/24/17 14:31 97.5 F L 80 20 184/78 98 10/24/17 13:30 75 20 156/65 99 10/24/17 12:30 74 20 158/72 96 10/24/17 11:27 98.3 F 77 18 148/97 98 Intake and Output 10/24/17 10/24/17 10/24/17 06:59 14:59 22:59 Other: Weight 87.5 kg Blood pressure 153/84 heart rate 77 afebrile maintaining oxygen saturation on nasal cannula GENERAL: This is a 72-year-old female in no apparent distress at the time of my examination. Obese. HEENT: Head is atraumatic, normocephalic. Pupils are equal, round. Sclerae anicteric. Conjunctivae are clear. Mucous membranes of the mouth are moist. Neck is supple. There is no jugular venous distention. No carotid bruit is heard. LUNGS: Clear to auscultation no wheezes, rales or rhonchi. No chest wall tenderness is noted on palpation or with deep breathing. HEART: Regular rate and rhythm without murmurs, rubs or gallops. S1 and S2 heard. ABDOMEN: Soft, nontender. Bowel sounds are heard. No organomegaly noted. EXTREMITIES: No evidence of peripheral edema and no calf tenderness noted. VASCULAR: Radial and dorsalis pedis pulses palpated, no evidence of clubbing. NEUROLOGIC: Patient is awake, alert and oriented x3. Results 10/24/17 11:57 10/24/17 11:57 Cardiac Enzymes 10/24/17 10/24/17 Range/Units 11:57 11:57 AST 22 (14-36) U/L CK-MB (CK-2) 0.8 (0.0-2.4) ng/mL Troponin I <0.012 (0.000-0.034) ng/mL Coagulation 10/24/17 Range/Units 11:57 PT 19.1 H (9.0-12.0) sec APTT 29.6 (22.0-30.0) sec CBC 10/24/17 Range/Units 11:57 WBC 10.0 (3.8-10.6) k/uL RBC 5.09 (3.80-5.40) m/uL Hgb 14.9 (11.4-16.0) gm/dL Hct 44.9 (34.0-46.0) % Plt Count 238 (150-450) k/uL Comprehensive Metabolic Panel 10/24/17 Range/Units 11:57 Sodium 141 (137-145) mmol/L Potassium 4.4 (3.5-5.1) mmol/L Chloride 106 (98-107) mmol/L Carbon Dioxide 27 (22-30) mmol/L BUN 16 (7-17) mg/dL Creatinine 0.69 (0.52-1.04) mg/dL Glucose 107 H (74-99) mg/dL Calcium 9.4 (8.4-10.2) mg/dL AST 22 (14-36) U/L ALT 28 (9-52) U/L Alkaline Phosphatase 68 (38-126) U/L Total Protein 6.9 (6.3-8.2) g/dL Albumin 4.1 (3.5-5.0) g/dL Current Medications Generic Name Dose Route Start Last Admin Trade Name Freq PRN Reason Stop Dose Admin Allopurinol 300 mg 10/25/17 09:00 Zyloprim PO DAILY [facility] Amlodipine Besylate 10 mg 10/25/17 09:00 Norvasc PO DAILY JO Magnesium Oxide 400 mg 10/25/17 09:00 Mag-Ox PO DAILY [facility] Metoprolol Tartrate 100 mg 10/24/17 21:00 Lopressor PO BID JO Naloxone HCl 0.2 mg 10/24/17 14:02 Narcan IV Q2M PRN Opioid Reversal Pantoprazole Sodium 40 mg 10/25/17 07:30 Protonix PO AC-BRKFST [facility] Tramadol HCl 50 mg 10/24/17 14:04 Ultram PO Q6H PRN Pain Warfarin Sodium 2.5 mg 10/24/17 14:15 Coumadin PO SUTUWEFR JO Warfarin Sodium 5 mg 10/25/17 14:04 Coumadin PO MOTHSA JO Intake and Output 10/24/17 10/24/17 10/24/17 06:59 14:59 22:59 Other: Weight 87.5 kg Patient Weight 10/25/17 06:59 Weight 87.5 kg 10/24/17 11:57 10/24/17 11:57 Assessment and Plan Assessment: ASSESSMENT Chest pain, atypical. Also has symptoms of intermittent palpitations and exertional shortness of breath. Paroxysmal atrial fibrillation on long-term anticoagulation with Coumadin currently maintaining sinus mechanism Hypertension Gastroesophageal reflux disease PLAN Obtain 2-D echocardiogram and Doppler study to assess cardiac structure and function. Continue to obtain serial cardiac enzymes to rule out an acute coronary event. Suspect that her symptoms may be related to her going in and out of atrial fibrillation. Check TSH and free T4. Ongoing telemetry monitoring to assess for an acute arrhythmia. Further recommendations to follow based upon clinical course. Thank you kindly for this consultation. The above impression and plan of care have been discussed and directed by the signing physician. Margot Corado, nurse practitioner, acting as scribe for signing physician.
[2017-10-24] MEDS: traMADol 50 MG TAB PO PRN ×2 (15:27→21:04)
[2017-10-24 15:41] LABS: Cholesterol 184 mg/dL (<200); HDL Cholesterol 48 mg/dL (40-60); LDL Cholesterol,Calculated 98 mg/dL (0-99); Triglycerides 191 mg/dL (<150)
[2017-10-24 18:58] LABS: Creatine Kinase 53 U/L (30-135)
--- NOTE | 2017-10-24 19:14 | HP ---
HISTORY AND PHYSICAL DATE OF ADMISSION: 10/24/17. PRESENTING COMPLAINT: Chest pressure. HISTORY OF PRESENTING COMPLAINT: Pleasant 72-year-old patient of Dr. Sánchez. Chronic stable medical conditions include atrial fibrillation, GERD, hypertension, gout, chronic ileostomy. One week ago patient had an episode of jaw pain and pain in the chest while sitting down, lasted for a few minutes. Then settled down. The patient has been feeling extremely exhausted for a few weeks, gets easily tired with minimal activity, now presented with chest pressure earlier today going across the chest. The patient has been dizzy, lightheaded, getting bouts of perspiration. Concern was about having unstable angina. Hence, admitted for the same. No prior cardiac history. No prior cardiac history. The patient does take Coumadin for atrial fibrillation. The patient's son is present at the bedside. REVIEW OF SYSTEMS: CONSTITUTIONAL: Tired. HEENT: None. RESPIRATORY: As above. CARDIOVASCULAR: As above. GASTROINTESTINAL: Heartburn. GENITOURINARY: None. MUSCULOSKELETAL: Some pain in the joints. DERMATOLOGICAL, HEMATOLOGIC, LYMPHATIC: None. PSYCHIATRY: None. NEUROLOGICAL: None. 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 PAST SURGICAL HISTORY: , tonsillectomy, ileostomy, bilateral cataract surgery. SOCIAL HISTORY: The patient lives with her ex- and 2 adult sons. No smoking, no alcohol. FAMILY HISTORY: Cancer. HOME MEDICATIONS: Magnesium 500 mg a day, probiotic 1 capsule p.o. daily, Vitamin D2 97053 units every 14 days, Coumadin 2.5 mg on Friday, Friday, Friday, Friday and 5 mg on Friday, , and Friday. Multivitamin 1 tablet p.o. daily, Lopressor 200 mg p.o. b.i.d., Allopurinol 300 mg a day, Ultram 50 mg q.6 p.r.n., Norvasc 10 mg daily, Omeprazole 20 mg b.i.d. ALLERGIES: None. PHYSICAL EXAMINATION: Temperature 98.1, pulse 77, respirations 18, blood pressure 153/84, pulse ox 98% on 2 L. GENERAL APPEARANCE: Well built, BMI 30.2, sitting up, tired appearing. EYES: Pupils equal. Conjunctivae normal. HEENT: External appearance of nose and ears normal. Oral cavity normal. NECK: JVD not raised. Mass not palpable. RESPIRATORY: Effort normal. Lungs, fair entry. CARDIOVASCULAR: 1st and 2nd sounds normal. No edema. ABDOMEN: Soft, nontender. Liver and spleen not palpable. LYMPHATIC: No lymph node palpable. PSYCHIATRY: Alert and oriented x3. Mood and affect normal. NEUROLOGICAL: Pupils equal. Cranial nerves grossly intact. Power and sensation grossly intact. INVESTIGATIONS: White count 10, hemoglobin 14.9, INR 2.1, potassium 4.4, BUN and creatinine is normal. Troponin less than 0.012. ProBNP 183. TSH 1.4. Chest x-ray shows prominent pulmonary artery. Otherwise, lung schulz are clear. EKG tracing reviewed, interpreted by me, showed normal sinus rhythm. ASSESSMENT: 1. Unstable angina sounding presentation in a patient whose risk factors include her age, obesity, hypertension. 2. Paroxysmal atrial fibrillation for which chronically patient is on Coumadin. 3. Gastroesophageal reflux disease. 4. Essential hypertension. 5. Ulcerative colitis leading to ileostomy. 6. Chronic gout. 7. Obesity, BMI 30.2. PLAN: The patient is currently on beta edy, on Coumadin. We will add a baby aspirin. Cardiology was consulted. The patient will need at least a stress test and then depending on that, we will go from there. Further care was discussed with the patient and son. Questions were answered. ALEXANDRA / EMA: [id number] /
[2017-10-24 19:37] LABS: Creatine Kinase MB 0.7 ng/mL (0.0-2.4); Troponin I <0.012 ng/mL (0.000-0.034)
[2017-10-24] MEDS: METOPROLOL TARTRATE 50 MG TAB PO SCH (20:27)
[2017-10-25 01:09] LABS: Creatine Kinase 64 U/L (30-135)
[2017-10-25 01:23] LABS: Creatine Kinase MB 0.9 ng/mL (0.0-2.4); Troponin I <0.012 ng/mL (0.000-0.034)
[2017-10-25] MEDS: traMADol 50 MG TAB PO PRN ×2 (03:09→10:28)
[2017-10-25] MEDS ORDERED: ACETAMINOPHEN TAB 325 MG TAB PO STA ×2 (03:33→11:07)
--- NOTE | 2017-10-25 07:22 | ECHOF ---
Referral Reason:Chest pain shortness of breath with exertion MEASUREMENTS -------- HEIGHT: 170.2 cm WEIGHT: 87.1 kg BP: 153/84 RVIDd: 2.9 cm (< 3.3) IVSd: 0.9 cm (0.6 - 1.1) LVIDd: 4.3 cm (3.9 - 5.3) LVPWd: 0.9 cm (0.6 - 1.1) IVSs: 1.3 cm LVIDs: 2.4 cm LVPWs: 1.3 cm Ao Diam: 2.9 cm (2.0 - 3.7) LAESV Index (A-L): 14.03 ml/m Ao Diam: 2.9 cm (2.0 - 3.7) AV Cusp: 1.7 cm (1.5 - 2.6) LA Diam: 3.0 cm (2.7 - 3.8) EPSS: 0.3 cm MV E Anselmo: 0.63 m/s MV DecT: 307 ms MV A Anselmo: 0.73 m/s MV E/A Ratio: 0.87 RAP: 5.00 mmHg RVSP: 20.30 mmHg MV EF SLOPE: 111.85 mm/s (70 - 150) MV EXCURSION: 1.43 cm (> 18.000) FINDINGS -------- Sinus rhythm. This was a technically adequate study. The left ventricular size is normal. Left ventricular wall thickness is normal. Overall left vent ricular systolic function is normal with, an EF between 55 - 60 %. The right ventricle is normal in size and function. Normal LA size by volume 22+/-6 ml/m2. The right atrium is normal in size. The aortic valve is trileaflet, and appears structurally normal. No aortic stenosis or regurgitation. The mitral valve leaflets are mildly thickened. There is trace mitral regurgitation. Trace tricuspid regurgitation present. Right ventricular systolic pressure is normal at < 35 mmHg. There is no evidence of pulmonary hypertension. Trace/mild (physiologic) pulmonic regurgitation. The aortic root size is normal. Normal inferior vena cava with normal inspiratory collapse consistent with estimated right atrial pre ssure of 5 mmHg. There is no pericardial effusion. CONCLUSIONS -------- 1. Sinus rhythm. 2. This was a technically adequate study. 3. The left ventricular size is normal. 4. Left ventricular wall thickness is normal. 5. Overall left ventricular systolic function is normal with, an EF between 55 - 60 %. 6. Normal LA size by volume 22+/-6 ml/m2. 7. The aortic valve is trileaflet, and appears structurally normal. No aortic stenosis or regurgitati on. 8. The mitral valve leaflets are mildly thickened. 9. There is trace mitral regurgitation. 10. Trace tricuspid regurgitation present. 11. Right ventricular systolic pressure is normal at < 35 mmHg. 12. There is no evidence of pulmonary hypertension. 13. Trace/mild (physiologic) pulmonic regurgitation. 14. The aortic root size is normal. 15. There is no pericardial effusion. MARINA DRY DOCK MANAGER: Christo Cook RDCS
[2017-10-25] MEDS ORDERED: PANTOPRAZOLE 40 MG TABLET PO SCH (07:30)
[2017-10-25] MEDS ORDERED: ALLOPURINOL 300 MG TAB PO SCH (09:00)
[2017-10-25] MEDS ORDERED: MAGNESIUM OXIDE 400 MG TAB PO SCH (09:00)
[2017-10-25] MEDS ORDERED: amLODIPine 10 MG TAB PO SCH (09:00)
[2017-10-25] MEDS: METOPROLOL TARTRATE 50 MG TAB PO SCH (09:09)
[2017-10-25 11:39] VITALS: BP 127/79; PULSE 71; RESP 12; TEMP 98.2
[2017-10-25] MEDS ORDERED: WARFARIN 5 MG TAB PO SCH (14:04)
--- NOTE | 2017-10-26 07:34 | DS ---
DISCHARGE SUMMARY DATE OF ADMISSION: 10/24/17. DATE OF DISCHARGE: 10/25/17. FINAL DIAGNOSES: 1. Possible unstable angina. The patient's risk factors include age, obesity and hypertension. 2. Paroxysmal atrial fibrillation for which patient is chronically on Coumadin. 3. Gastroesophageal reflux disease. 4. Essential hypertension. 5. Chronic ulcerative colitis leading to ileostomy. 6. Chronic gout. 7. Obesity; BMI 30.2. HOSPITAL COURSE: This patient presents with episodes of chest pain, feeling weak, tired, exhausted. The patient's troponins came back to be negative. The patient was seen by Dr. Juan José Grijalva yesterday and Dr. VC Jacob, who okayed the patient to go home today. The patient does get chest pressure on exertion. 2D echocardiogram did not show any wall motion abnormality, EF 55-60%. On examination: Afebrile, pulse 71, respiration 12, blood pressure 127/79. I discussed with the patient per Dr. Maikel Jacob today the patient was to be discharged. DISCHARGE MEDICATIONS: 1. Allopurinol 300 mg a day. 2. Lopressor 100 mg b.i.d. 3. Omeprazole 20 mg b.i.d. 4. Norvasc 10 mg a day. 5. Coumadin 2.5 mg on Friday, Friday, Friday, Friday and 5 mg on Friday, , Friday. 6. Ultram 50 mg q.6 p.r.n. 7. Vitamin D2 38454 units every 14 days. 8. Probiotic 1 capsule p.o. daily. 9. Magnesium gluconate 500 mg p.o. daily. 10.Multivitamin 1 tablet p.o. daily. 11.Nitrostat 0.4 sublingual q.5 p.r.n. Follow with Dr. Sánchez in 2 days. Follow up with Dr. Juan José Grijalva in 3 days. The patient told to restrict her activity until she follows with Dr. Juan José Grijalva. MMODL / IJN: [id number] /
== END 2017-10-25 14:54 | disposition home or self-care (01) ==
LOC: EC 11:25 → 3OBS 14:04 → 3SUR 19:05
PROVIDERS: ADMIT Hospitalist; ATTEND Hospitalist
DX: R07.89 Other chest pain (principal); I48.0 Paroxysmal atrial fibrillation; R68.84 Jaw pain; R61 Generalized hyperhidrosis; I10 Essential (primary) hypertension; K21.9 Gastro-esophageal reflux disease without esophagitis; Z93.2 Ileostomy status; K51.90 Ulcerative colitis, unspecified, without complications; M1A.9XX0 Chronic gout, unspecified, without tophus (tophi); Z68.30 Body mass index [BMI] 30.0-30.9, adult; E66.9 Obesity, unspecified; Z79.01 Long term (current) use of anticoagulants; Z79.899 Other long term (current) drug therapy; Z98.42 Cataract extraction status, left eye; Z98.41 Cataract extraction status, right eye; Z87.81 Personal history of (healed) traumatic fracture; Z87.440 Personal history of urinary (tract) infections; Z87.442 Personal history of urinary calculi; Z80.9 Family history of malignant neoplasm, unspecified
CPT/HCPCS: 99285 ×2; 36415; 93005; 93306; 83880; 80061; 80053; 84443; 82550 ×2; 82553 ×2; 83735; 84484 ×2; 85025; 85610; 85730; 71046; G0378 ×2

== ENCOUNTER → 2018-01-23 | Outpatient (CLI) | payer MEDICARE, BC ==
--- NOTE | 2018-01-23 11:08 | CT ---
EXAMINATION TYPE: CT abdomen w con DATE OF EXAM: 01/23/2018 HISTORY: Follow up on right renal mass CT DLP: 978.7mGycm Automated Exposure Control for Dose Reduction was Utilized. CONTRAST: CT scan of the abdomen and pelvis is performed with IV Contrast, patient injected with 100 mL of Isov ue 300. COMPARISON: 12/26/2016 and 04/22/2016. FINDINGS: LUNG BASES: There is redemonstration of nodular pleural thickening along the right lung base posterio rly. Again this appears similar in comparison to exams dating back to 05/06/2016. Bibasilar dependent subsegmental atelectasis is again appreciated. LIVER/GB: Hepatic parenchyma is diffusely hypoattenuated in comparison to that of the spleen, most co mmonly seen in hepatic steatosis. This finding limits evaluation for hepatic masses. No gross evidenc e of hepatic mass is seen. No intrahepatic biliary ductal dilatation. Fluid attenuated similar-appear ing right lobe hepatic cyst is seen on image 10 in addition to smaller subcentimeter hepatic lesion m arked on image 17 that is too small to accurately characterize. Gallbladder is unremarkable without c holelithiasis. PANCREAS: No significant abnormality is seen. SPLEEN: No significant abnormality is seen. ADRENALS: Small fat-containing left adrenal gland nodule is seen compatible with a lipid rich adenoma . On coronal images there appears to be a right adrenal gland low-density lesion measuring 2 cm also compatible with a lipid rich adenoma. These are benign findings. KIDNEYS: Again there are bilateral multiple fluid attenuated cortically based renal cysts on the righ t again demonstrate dependent punctate layering calcifications on coronal image 43 and 40. There is minimal interval growth of the solid right lower pole 1.6 cm renal lesion on axial image 44 and coronal image 40. This previously measured 1.4 cm. This also measured 1.2 cm on the prior exam in craniocaudal dimension on series 6 image 31 and now measures 1.5 cm on series 7 image 40. On the exa m of 04/22/2016 this appears to measure 1.1 cm on axial images in transverse dimension andr 1.1 cm in craniocaudal dimension. Bilateral renal sinus cysts are also seen, benign. No renal vein enlargement or inferior vena cava en largement is seen. No hydronephrosis. No uroepithelial thickening seen proximally within the abdomen. BOWEL: Small bowel containing parastomal hernia is redemonstrated. No bowel dilatation. LYMPH NODES: No greater than 1cm abdominal or pelvic lymph nodes are appreciated. OSSEOUS STRUCTURES: L2 compression deformity is chronic. Multilevel degenerative changes of the visua lized thoracolumbar spine are again noted. IMPRESSION: Continued minimal interval enlargement over prior exams of the solid right lower pole jalen al lesion suspicious for slow-growing neoplasm. Biopsy could be considered.
== END | disposition home or self-care (01) ==
LOC: RADCTMAIN 08:26
PROVIDERS: ATTEND Urology
DX: D41.01 Neoplasm of uncertain behavior of right kidney (principal)
CPT/HCPCS: 82565; 84520; 74160; 36415; Q9967

== ENCOUNTER → 2018-06-22 | Outpatient (CLI) | payer MEDICARE, BC ==
--- NOTE | 2018-06-22 10:02 | MM ---
Reason for exam: screening (asymptomatic). Last mammogram was performed 1 year and 2 months ago. History: Patient is postmenopausal. Benign US biopsy breast VAD LT of the left breast, January 24, 2015. Stereotactic core biopsy of the left breast, February 20, 2004. Benign cyst aspiration of the left breast, January 20, 2004. Core biopsy of the left breast. 2 excisional biopsies of the left breast. Took estrogen for 1 year beginning at age 55. Took progesterone for 1 year beginning at age 55. Physical Findings: A clinical breast exam by your physician is recommended on an annual basis and results should be correlated with mammographic findings. MG 3D Screening Mammo W/Cad Bilateral CC and MLO view(s) were taken. Prior study comparison: April 23, 2017, bilateral MG 3d screening mammo w/cad. April 22, 2016, bilateral MG 3d screening mammo w/cad. There are scattered fibroglandular densities. No significant changes when compared with prior studies. ASSESSMENT: Benign, BI-RAD 2 RECOMMENDATION: Routine screening mammogram of both breasts in 1 year.
== END | disposition home or self-care (01) ==
LOC: RADMAMWWP 07:48
PROVIDERS: ATTEND Family Medicine
DX: Z12.31 Encounter for screening mammogram for malignant neoplasm of breast (principal)
CPT/HCPCS: 77063; 77067

== ENCOUNTER 2018-07-03 12:18 | Inpatient (IN) | payer MEDICARE, BC ==
[2018-07-03] MEDS ORDERED: KETOROLAC 30 MG/ML 1 ML VIAL IVP STA (13:54)
[2018-07-03] MEDS ORDERED: MORPHINE SULFATE 4 MG/ML SYRINGE IV STA (13:54)
[2018-07-03] MEDS ORDERED: PANTOPRAZOLE 40 MG/10 ML VIAL IVP STA (13:54)
[2018-07-03] MEDS ORDERED: SODIUM CHLORIDE 0.9% 1,000 ML IV STA ×2 (13:54)
[2018-07-03] MEDS ORDERED: ONDANSETRON 4 MG/2 ML VIAL IVP STA (13:54)
--- NOTE | 2018-07-03 14:13 | ED ---
Abdominal Pain HPI - General Chief Complaint: Abdominal Pain Stated Complaint: Flank pain Time Seen by Provider: 07/03/18 13:22 Source: patient, RN notes reviewed, old records reviewed Mode of arrival: wheelchair Limitations: no limitations - History of Present Illness Initial Comments: Patient is a 72-year-old female presents returns today with 2 days of right- sided abdominal pain and back pain. She was she's had frequent urination. She reports a history of A. fib and is on Coumadin. She states she's had history of kidney stones per she states her pain feels similar to a kidney stone but not as quite severe. Patient states that she has had no nausea or vomiting. She does have a ileostomy. She states the past 2 days she's had been having just clear drainage from her ileostomy. She states that she's had no vomiting. She states that she does have a history of renal cyst that is being managed by Dr. Page. - Related Data Home Medications Medication Instructions Recorded Confirmed Allopurinol [Zyloprim] 300 mg PO DAILY 01/02/16 07/03/18 Metoprolol Tartrate [Lopressor] 100 mg PO BID 01/02/16 07/03/18 Omeprazole 20 mg PO BID 01/02/16 07/03/18 amLODIPine [Norvasc] 10 mg PO DAILY 01/02/16 07/03/18 Warfarin [Coumadin] 1.25 mg PO TUTH 07/04/16 07/03/18 Warfarin [Coumadin] 2.5 mg PO SUMOWEFRSA 07/04/16 07/03/18 traMADol HCL [Ultram] 50 mg PO Q6H PRN 07/04/16 07/03/18 Magnesium Gluconate [Magonate] 250 mg PO DAILY 10/24/17 07/03/18 Acetaminophen Tab [Tylenol Tab] 1,000 mg PO Q6HR PRN 07/03/18 07/03/18 Ferrous Sulfate [Feosol] 325 mg PO DAILY 07/03/18 07/03/18 Ondansetron [Zofran] 4 mg PO Q8H PRN 07/03/18 07/03/18 Previous Rx's Medication Instructions Recorded Nitroglycerin Sl Tabs [Nitrostat] 0.4 mg SUBLINGUAL Q5M PRN #25 tab 10/25/17 Allergies Allergy/AdvReac Type Severity Reaction Status Date / Time No Known Allergies Allergy Verified 07/03/18 13:23 Review of Systems ROS Statement: Those systems with pertinent positive or pertinent negative responses have been documented in the HPI. ROS Other: All systems not noted in ROS Statement are negative. Past Medical History Past Medical History: Atrial Fibrillation, GERD/Reflux, Hypertension Additional Past Medical History / Comment(s): Hx of Ulcerative Colitis(ileostomy) and gout, renal stone,uti, 2016 - vertebra/compression fx d/t fall when dancing. History of Any Multi-Drug Resistant Organisms: None Reported Past Surgical History: Section, Tonsillectomy Additional Past Surgical History / Comment(s): ileostomy, COLONOSCOPY, EGD, BILAT CATARACTS, lithrotripsy Past Anesthesia/Blood Transfusion Reactions: No Reported Reaction Additional Past Anesthesia/Blood Transfusion Reaction / Comment(s): blood transfusion in past-no reaction Past Psychological History: No Psychological Hx Reported Smoking Status: Never smoker Past Alcohol Use History: None Reported Past Drug Use History: None Reported - Past Family History Mother Family Medical History: Cancer Father Family Medical History: Cancer General Exam - General Exam Comments Initial Comments: This is a 72-year-old female. Alert and oriented. Patient appears in no significant distress. Limitations: no limitations General appearance: alert, in no apparent distress Head exam: Present: atraumatic, normocephalic, normal inspection Eye exam: Present: normal appearance, PERRL, EOMI. Absent: scleral icterus, conjunctival injection, periorbital swelling ENT exam: Present: normal exam, mucous membranes moist Neck exam: Present: normal inspection. Absent: tenderness, meningismus, lymphadenopathy Respiratory exam: Present: normal lung sounds bilaterally. Absent: respiratory distress, wheezes, rales, rhonchi, stridor Cardiovascular Exam: Present: regular rate, normal rhythm, normal heart sounds. Absent: systolic murmur, diastolic murmur, rubs, gallop, clicks GI/Abdominal exam: Present: soft, tenderness (Right upper quadrant tenderness.), normal bowel sounds, other (Ileostomy noted.). Absent: distended, guarding, rebound, rigid Extremities exam: Present: normal inspection, full ROM, normal capillary refill. Absent: tenderness, pedal edema, joint swelling, calf tenderness Back exam: Present: normal inspection Neurological exam: Present: alert, oriented X3, CN II-XII intact Psychiatric exam: Present: normal affect, normal mood Skin exam: Present: warm, dry, intact, normal color. Absent: rash Course Vital Signs 07/03/18 07/03/18 07/03/18 12:32 15:34 18:02 Temperature 99.2 F 98.3 F Pulse Rate 129 H 106 H 106 H Respiratory 18 16 18 Rate Blood Pressure 137/74 125/75 126/64 O2 Sat by Pulse 95 96 96 Oximetry Medical Decision Making - Medical Decision Making 9-year-old female presents emergency Department today with complaints of polyuria right-sided flank pain and abdominal pain. Patient was given IV fluids pain medication. On reevaluation she continued with some pain. We performed CT without contrast. Patient's white blood cell count is elevated at 16.3. Kidney function is preserved, GFR 81. Mildly elevated liver enzymes AST of 48, AST 67. Total bilirubin is 0.9. Urinalysis is significant for infection with greater than 182 red blood cells. Urine culture completed. Patient was given 2 g of Rocephin. Discussed concerns or pyelonephritis. I discussed the CT abnormalities with concerns for possibility of perinephric abscess. Patient will be started on IV vancomycin as well. Dr. Law Discussed case with Dr. Page who agrees to admit the Patient at this time. Urine culture completed. - Lab Data Result diagrams: 07/03/18 14:31 07/03/18 14:31 Lab Results 07/03/18 07/03/18 07/03/18 Range/Units 14:31 14:31 14:31 WBC 16.3 H (3.8-10.6) k/uL RBC 4.85 (3.80-5.40) m/uL Hgb 13.9 (11.4-16.0) gm/dL Hct 45.0 (34.0-46.0) % MCV 92.7 (80.0-100.0) fL MCH 28.7 (25.0-35.0) pg MCHC 30.9 L (31.0-37.0) g/dL RDW 14.6 (11.5-15.5) % Plt Count 336 (150-450) k/uL Neutrophils % 89 % Lymphocytes % 5 % Monocytes % 4 % Eosinophils % 2 % Basophils % 0 % Neutrophils # 14.5 H (1.3-7.7) k/uL Lymphocytes # 0.8 L (1.0-4.8) k/uL Monocytes # 0.7 (0-1.0) k/uL Eosinophils # 0.3 (0-0.7) k/uL Basophils # 0.0 (0-0.2) k/uL PT (9.0-12.0) sec INR (<1.2) APTT (22.0-30.0) sec Sodium 140 (137-145) mmol/L Potassium 4.2 (3.5-5.1) mmol/L Chloride 106 (98-107) mmol/L Carbon Dioxide 23 (22-30) mmol/L Anion Gap 11 mmol/L BUN 21 H (7-17) mg/dL Creatinine 0.75 (0.52-1.04) mg/dL Est GFR (CKD-EPI)AfAm >90 (>60 ml/min/1.73 sqM) Est GFR (CKD-EPI)NonAf 81 (>60 ml/min/1.73 sqM) Glucose 134 H (74-99) mg/dL Calcium 9.1 (8.4-10.2) mg/dL Total Bilirubin 0.9 (0.2-1.3) mg/dL AST 48 H (14-36) U/L ALT 67 H (9-52) U/L Alkaline Phosphatase 115 (38-126) U/L Total Protein 6.7 (6.3-8.2) g/dL Albumin 3.6 (3.5-5.0) g/dL Amylase 77 (30-110) U/L Lipase 79 (23-300) U/L Urine Color Yellow Urine Appearance Cloudy H (Clear) Urine pH 6.0 (5.0-8.0) Ur Specific [place] 1.021 (1.001-1.035) Urine Protein 1+ H (Negative) Urine Glucose (UA) Negative (Negative) Urine Ketones Negative (Negative) Urine Blood Moderate H (Negative) Urine Nitrite Negative (Negative) Urine Bilirubin Negative (Negative) Urine Urobilinogen <2.0 (<2.0) mg/dL Ur Leukocyte Esterase Large H (Negative) Urine RBC 8 H (0-5) /hpf Urine WBC >182 H (0-5) /hpf Urine WBC Clumps Many H (None) /hpf Urine Bacteria Many H (None) /hpf Urine Mucus Occasional H (None) /hpf 07/03/18 Range/Units 14:45 WBC (3.8-10.6) k/uL RBC (3.80-5.40) m/uL Hgb (11.4-16.0) gm/dL Hct (34.0-46.0) % MCV (80.0-100.0) fL MCH (25.0-35.0) pg MCHC (31.0-37.0) g/dL RDW (11.5-15.5) % Plt Count (150-450) k/uL Neutrophils % % Lymphocytes % % Monocytes % % Eosinophils % % Basophils % % Neutrophils # (1.3-7.7) k/uL Lymphocytes # (1.0-4.8) k/uL Monocytes # (0-1.0) k/uL Eosinophils # (0-0.7) k/uL Basophils # (0-0.2) k/uL PT 13.3 H (9.0-12.0) sec INR 1.3 H (<1.2) APTT 28.3 (22.0-30.0) sec Sodium (137-145) mmol/L Potassium (3.5-5.1) mmol/L Chloride (98-107) mmol/L Carbon Dioxide (22-30) mmol/L Anion Gap mmol/L BUN (7-17) mg/dL Creatinine (0.52-1.04) mg/dL Est GFR (CKD-EPI)AfAm (>60 ml/min/1.73 sqM) Est GFR (CKD-EPI)NonAf (>60 ml/min/1.73 sqM) Glucose (74-99) mg/dL Calcium (8.4-10.2) mg/dL Total Bilirubin (0.2-1.3) mg/dL AST (14-36) U/L ALT (9-52) U/L Alkaline Phosphatase (38-126) U/L Total Protein (6.3-8.2) g/dL Albumin (3.5-5.0) g/dL Amylase (30-110) U/L Lipase (23-300) U/L Urine Color Urine Appearance (Clear) Urine pH (5.0-8.0) Ur Specific [place] (1.001-1.035) Urine Protein (Negative) Urine Glucose (UA) (Negative) Urine Ketones (Negative) Urine Blood (Negative) Urine Nitrite (Negative) Urine Bilirubin (Negative) Urine Urobilinogen (<2.0) mg/dL Ur Leukocyte Esterase (Negative) Urine RBC (0-5) /hpf Urine WBC (0-5) /hpf Urine WBC Clumps (None) /hpf Urine Bacteria (None) /hpf Urine Mucus (None) /hpf - Radiology Data Radiology results: report reviewed KUB shows no instructed bowel gas pattern. CT abdomen and pelvis without contrast. There is an full gross of the cystic right renal lesion that was minimally complex on exam of . Adjacent to a suspicious solid right renal lesion which biopsy recommended on the prior 2017. There is continued interval growth of both masses. Surrounding the right mass there is new mcelroy. Effort fat stranding and superinfection with renal abscesses suspected. Some inflammatory stranding extends beyond the retroperitoneum and therefore other etiologies such as colitis although no bowel wall thickening is seen. Or cholecystitis. Peristomal hernia noted. Multiple chronic compression deformities noted. Severe hepatic steatosis. Disposition Clinical Impression: Pyelonephritis, Perinephric abscess Disposition: ADMITTED IP TO THIS HOSP Condition: Good Is patient prescribed a controlled substance at d/c from ED?: No Referrals: Oskar Sánchez DO [Primary Care Provider] - 1-2 days Time of Disposition: 18:37
[2018-07-03 14:46] LABS: Basophils % (A) 0 %; Eosinophils # (A) 0.3 k/uL (0-0.7); Eosinophils % (A) 2 %; HGB 13.9 gm/dL (11.4-16.0); Lymphocytes # (A) 0.8 k/uL (1.0-4.8); Lymphocytes % (A) 5 %; MCH 28.7 pg (25.0-35.0); MCHC 30.9 g/dL (31.0-37.0); MCV 92.7 fL (80.0-100.0); Mean Platelet Volume 6.7; Monocytes # (A) 0.7 k/uL (0-1.0); Monocytes % (A) 4 %; Neutrophils # (A) 14.5 k/uL (1.3-7.7); Neutrophils % (A) 89 %; Platelet Count 336 k/uL (150-450); RBC 4.85 m/uL (3.80-5.40); RDW 14.6 % (11.5-15.5); WBC 16.3 k/uL (3.8-10.6)
[2018-07-03 14:54] LABS: ALT 67 U/L (9-52); AST 48 U/L (14-36); Albumin 3.6 g/dL (3.5-5.0); Alkaline Phosphatase 115 U/L (38-126); Amylase 77 U/L (30-110); Anion Gap 11 mmol/L; Blood Urea Nitrogen 21 mg/dL (7-17); Calcium 9.1 mg/dL (8.4-10.2); Carbon Dioxide 23 mmol/L (22-30); Chloride 106 mmol/L (98-107); Glucose 134 mg/dL (74-99); Lipase 79 U/L (23-300); Potassium 4.2 mmol/L (3.5-5.1); Sodium 140 mmol/L (137-145); Total Bilirubin 0.9 mg/dL (0.2-1.3); Total Protein 6.7 g/dL (6.3-8.2)
[2018-07-03 14:58] LABS: Appearance,Urine Cloudy (Clear); Bacteria,Urine Many /hpf; Bilirubin,Urine Negative (Negative); Blood,Urine Moderate (Negative); Color,Urine Yellow; Glucose,Urine (UA) Negative (Negative); Ketones,Urine Negative (Negative); Leukocyte Esterase,Urine Large (Negative); Mucus,Urine Occasional /hpf; Nitrite,Urine Negative (Negative); Protein,Urine 1+ (Negative); RBC,Urine 8 /hpf (0-5); Specific Gravity,Urine 1.021 (1.001-1.035); Urobilinogen,Urine <2.0 mg/dL (<2.0); WBC,Urine >182 /hpf (0-5)
--- NOTE | 2018-07-03 15:16 | XR ---
EXAMINATION TYPE: XR KUB DATE OF EXAM: 07/03/2018 COMPARISON: 12/09/2016 HISTORY: Pain TECHNIQUE: Single supine KUB image of the abdomen is obtained FINDINGS: Small bowel demonstrates no evidence for dilatation or air fluid levels. Gas and fecal material is seen in non-distended colon. No convincing evidence for pneumoperitoneum. No unusual calcifications. The lung bases are clear. The osseous structures are intact. IMPRESSION: 1. Overall nonobstructive bowel gas pattern.
[2018-07-03 15:17] LABS: INR 1.3 (<1.2); Partial Thromboplastin Time 28.3 sec (22.0-30.0); Prothrombin Time 13.3 sec (9.0-12.0)
[2018-07-03] MEDS ORDERED: SODIUM CHLORIDE 0.9% 1,000 ML IV ONE (15:20)
--- NOTE | 2018-07-03 17:00 | CT ---
EXAMINATION TYPE: CT abdomen pelvis wo con DATE OF EXAM: 07/03/2018 COMPARISON: 01/23/2018 HISTORY: right flank pain CT DLP: 678.1 mGycm Automated exposure control for dose reduction was used. TECHNIQUE: Helical acquisition of images was performed from the lung bases through the pelvis. FINDINGS: LUNG BASES: Multifocal pleural parenchymal scarring and bibasilar atelectasis is seen. LIVER/GB: Hepatic parenchyma is diffusely hypoattenuated in comparison to that of the spleen, most co mmonly seen in hepatic steatosis. This finding limits evaluation for hepatic masses. No gross evidenc e of hepatic mass is seen. No intrahepatic biliary ductal dilatation. No cholelithiasis PANCREAS: No significant abnormality is seen. SPLEEN: No significant abnormality is seen. ADRENALS: Right adrenal fat-containing lipid rich adenoma is again noted. Left adrenal gland is unrem arkable. KIDNEYS: Although contrast is not utilized there is concern for a right renal abscess as there is ext ensive focal right perinephric fat stranding appearing to be surrounding a renal mass measuring 5.3 x 6.2 cm however a right renal cyst was seen at this location on the prior of 01/23/2018. This is atyp ical for infection involve a renal cyst. Some fat stranding is seen external to the retroperitoneal s pace and intraperitoneal and therefore other etiologies are possible. Numerous other renal lesions are incompletely evaluated without contrast 1 of these appears solid and the right inferior pole measuring 2 cm. The remaining appear grossly cystic. Punctate nonobstructing 2 mm left renal calcification is noted. FREE AIR: No free air is visualized ADENOPATHY: No greater than 1 cm short axis lymph node is seen in the abdomen or pelvis. Few likely reactive scattered central mesenteric lymph nodes are present. OSSEOUS STRUCTURES: Degenerative changes of the femoral acetabular joints are present. There is gene ralized osseous demineralization. Multilevel compression deformities at T12-L2 are unchanged from the prior. BOWEL: There is a right-sided ostomy with parastomal herniation of bowel. Inflammatory fat stranding is seen in posterior to this. No dilated bowel to suggest obstruction. Descending duodenal diverticu lum is seen near the head of the pancreas. There appears to be subtotal colostomy is the rectum remai ns. IMPRESSION: 1. INTERVAL GROWTH OF A CYSTIC RIGHT RENAL LESION THAT WAS MINIMALLY COMPLEX ON THE EXAM OF 01/23/2018 ADJACENT TO A SUSPICIOUS SOLID RIGHT RENAL LESION FOR WHICH BIOPSY WAS RECOMMENDED ON THE PRIOR OF 03/25/2017. THERE IS CONTINUED INTERVAL GROWTH OF BOTH MASSES. SURROUNDING THE RIGHT MASS THERE IS NEW MARKED PERINEPHRIC FAT STRANDING AND SUPERINFECTION WITH RENAL ABSCESS IS SUSPECTED. SOME INFLAMMATOR Y FAT STRANDING EXTENDS BEYOND THE RETROPERITONEUM AND THEREFORE OTHER ETIOLOGIES POSSIBLE SUCH CO LITIS ALTHOUGH NO BOWEL WALL THICKENING IS SEEN OR CHOLECYSTITIS. 2. PARASTOMAL HERNIA. 3. MULTIPLE CHRONIC COMPRESSION DEFORMITIES. 4. SEVERE HEPATIC STEATOSIS.
[2018-07-03] MEDS ORDERED: VANCOMYCIN IV PER PHARMACY 1 EACH MISC MISCELLANE PRN (18:33)
[2018-07-03] MEDS ORDERED: ACETAMINOPHEN TAB 325 MG TAB PO PRN (18:43)
[2018-07-03] MEDS ORDERED: NALOXONE 0.4 MG/ML 1 ML VIAL IV PRN (18:43)
[2018-07-03] MEDS ORDERED: IBUPROFEN 400 MG TAB PO PRN (18:43)
[2018-07-03] MEDS ORDERED: VANCOMYCIN 1,500 MG in SODIUM CHLORIDE 0.9% 250 ML IVPB ONE (19:00)
[2018-07-03] MEDS: HYDROmorphone 0.5 MG/0.5 ML SYRINGE IVP PRN (20:26)
[2018-07-04] MEDS: MORPHINE SULFATE 4 MG/ML SYRINGE IV PRN ×3 (00:19→21:50)
[2018-07-04] MEDS: VANCOMYCIN 1,500 MG in SODIUM CHLORIDE 0.9% 250 ML IVPB SCH ×2 (05:42→17:02)
[2018-07-04] MEDS: ONDANSETRON 4 MG/2 ML VIAL IVP PRN ×3 (05:53→20:00)
[2018-07-04] MEDS: PANTOPRAZOLE 40 MG/10 ML VIAL IV SCH (08:03)
[2018-07-04] MEDS: KETOROLAC 30 MG/ML 1 ML VIAL IVP PRN ×2 (09:33→16:36)
--- NOTE | 2018-07-04 09:43 | P.GSCN ---
History of Present Illness Consult date: 07/04/18 Reason for Consult: Possible right pyelonephritis History of present illness: The patient is a 72-year-old female admitted through the emergency room last night for evaluation of right upper quadrant pain and possible acute pyelonephritis or a perinephric abscess. The patient is well known to me and was last seen by me in the fall of 2017. She says that she had problems with no material coming from her ileostomy on 06/29 and at that time had some peristomal discomfort. This eventually resolved but the patient developed intermittent nausea and pain in the right upper quadrant. She said she had some chills but denied any fever. She also noted an increasing urinary frequency but no dysuria or hematuria. She normally voids every 2-4 hours during the day and says that during the week was voiding every hour. Her pain increased and she described it as a 10 out of 10 prior to admission. She was evaluated in the emergency room and noted to have a white blood count of 16,300. A she was afebrile. BUN/creatinine were stable at 21/0.75. Urinalysis showed 8 red cells greater than 182 white cells and many bacteria. The urinalysis was negative for nitrite. Computed tomography scan of the abdomen and pelvis without IV contrast showed evidence of some perinephric fat stranding in the region of the upper pole the right kidney. Multiple right renal cysts were noted and did not appear significantly changed in appearance from a previous computed tomography scan of the abdomen with IV contrast done in 01/2018. There was also a probable solid mass in the lower pole of the right kidney which measured approximately 2 cm in size and appears to have grown somewhat from the computed tomography scan in 02/08. I was contacted by the emergency room physician last night and it was elected to admit her for IV antibiotic treatment as the source of her pain and elevated white blood count was not clear. This morning the patient says that she is more comfortable however she has received some morphine for her pain. She has remained afebrile. Review of Systems - Constitutional Reports chills, Denies fever - Cardiovascular Denies shortness of breath - Respiratory Denies cough, Denies pain on inspiration - Gastrointestinal Reports as per HPI Past Medical History Past Medical History: Atrial Fibrillation, GERD/Reflux, Hypertension Additional Past Medical History / Comment(s): Hx of Ulcerative Colitis(ileostomy) and gout, renal stone,uti, 2016 - vertebra/compression fx d/t fall when dancing, 2018-Apr patient fell on ice and had x1 compression fracture History of Any Multi-Drug Resistant Organisms: None Reported Past Surgical History: Section, Tonsillectomy Additional Past Surgical History / Comment(s): ileostomy, COLONOSCOPY, EGD, BILAT CATARACTS, lithrotripsy, x1 week ago she had laser on right eye Past Anesthesia/Blood Transfusion Reactions: No Reported Reaction Additional Past Anesthesia/Blood Transfusion Reaction / Comm: Blood transfusion in past-no reaction Past Psychological History: No Psychological Hx Reported Additional Psychological History / Comment(s): Patient is independant, lives with ex and 2 adult sons. Patient has walker, cane, and shower care, no home care services. Smoking Status: Never smoker Past Alcohol Use History: None Reported Past Drug Use History: None Reported - Past Family History Mother Family Medical History: Cancer Additional Family Medical History / Comment(s): Lymphoma, melanoma, non-hodkins Father Family Medical History: Cancer Additional Family Medical History / Comment(s): Lung cancer and throat Medications and Allergies Home Medications Medication Instructions Recorded Confirmed Type Allopurinol [Zyloprim] 300 mg PO DAILY 01/02/16 07/03/18 History Metoprolol Tartrate [Lopressor] 100 mg PO BID 01/02/16 07/03/18 History Omeprazole 20 mg PO BID 01/02/16 07/03/18 History amLODIPine [Norvasc] 10 mg PO DAILY 01/02/16 07/03/18 History Warfarin [Coumadin] 1.25 mg PO TUTH 07/04/16 07/03/18 History Warfarin [Coumadin] 2.5 mg PO SUMOWEFRSA 07/04/16 07/03/18 History traMADol HCL [Ultram] 50 mg PO Q6H PRN 07/04/16 07/03/18 History Magnesium Gluconate [Magonate] 250 mg PO DAILY 10/24/17 07/03/18 History Nitroglycerin Sl Tabs [Nitrostat] 0.4 mg SUBLINGUAL Q5M PRN #25 tab 10/25/17 07/03/18 Rx Acetaminophen Tab [Tylenol Tab] 1,000 mg PO Q6HR PRN 07/03/18 07/03/18 History Ferrous Sulfate [Feosol] 325 mg PO DAILY 07/03/18 07/03/18 History Multivitamin [Multivitamins Adult 1 each PO 07/03/18 History Gummies] Ondansetron [Zofran] 4 mg PO Q8H PRN 07/03/18 07/03/18 History Allergies Allergy/AdvReac Type Severity Reaction Status Date / Time No Known Allergies Allergy Verified 07/03/18 13:23 Surgical - Exam Vital Signs Temp Pulse Resp BP Pulse Ox 99.2 F 129 H 18 137/74 95 07/03/18 12:32 07/03/18 12:32 07/03/18 12:32 07/03/18 12:32 07/03/18 12:32 - General well developed, well nourished, no distress, obese, other - ENT no hearing loss - Neck no masses, no lymphadectomy - Respiratory normal respiratory effort - Abdomen Abdomen: soft, tender (Minimal tenderness superior to the ileostomy in the right abdomen. No right flank pain to palpation.), no organomegaly Results - Labs 07/03/18 14:31 07/03/18 14:31 Abnormal Lab Results - Last 24 Hours (Table) 07/03/18 07/03/18 07/03/18 Range/Units 14:31 14:31 14:31 WBC 16.3 H (3.8-10.6) k/uL MCHC 30.9 L (31.0-37.0) g/dL Neutrophils # 14.5 H (1.3-7.7) k/uL Lymphocytes # 0.8 L (1.0-4.8) k/uL PT (9.0-12.0) sec INR (<1.2) BUN 21 H (7-17) mg/dL Glucose 134 H (74-99) mg/dL AST 48 H (14-36) U/L ALT 67 H (9-52) U/L Urine Appearance Cloudy H (Clear) Urine Protein 1+ H (Negative) Urine Blood Moderate H (Negative) Ur Leukocyte Esterase Large H (Negative) Urine RBC 8 H (0-5) /hpf Urine WBC >182 H (0-5) /hpf Urine WBC Clumps Many H (None) /hpf Urine Bacteria Many H (None) /hpf Urine Mucus Occasional H (None) /hpf 07/03/18 Range/Units 14:45 WBC (3.8-10.6) k/uL MCHC (31.0-37.0) g/dL Neutrophils # (1.3-7.7) k/uL Lymphocytes # (1.0-4.8) k/uL PT 13.3 H (9.0-12.0) sec INR 1.3 H (<1.2) BUN (7-17) mg/dL Glucose (74-99) mg/dL AST (14-36) U/L ALT (9-52) U/L Urine Appearance (Clear) Urine Protein (Negative) Urine Blood (Negative) Ur Leukocyte Esterase (Negative) Urine RBC (0-5) /hpf Urine WBC (0-5) /hpf Urine WBC Clumps (None) /hpf Urine Bacteria (None) /hpf Urine Mucus (None) /hpf Microbiology - Last 24 Hours (Table) 07/03/18 14:31 Urine Culture - Preliminary Urine,Voided Diabetes panel 07/03/18 Range/Units 14:31 Sodium 140 (137-145) mmol/L Potassium 4.2 (3.5-5.1) mmol/L Chloride 106 (98-107) mmol/L Carbon Dioxide 23 (22-30) mmol/L BUN 21 H (7-17) mg/dL Creatinine 0.75 (0.52-1.04) mg/dL Glucose 134 H (74-99) mg/dL Calcium 9.1 (8.4-10.2) mg/dL AST 48 H (14-36) U/L ALT 67 H (9-52) U/L Alkaline Phosphatase 115 (38-126) U/L Total Protein 6.7 (6.3-8.2) g/dL Albumin 3.6 (3.5-5.0) g/dL Calcium panel 07/03/18 Range/Units 14:31 Calcium 9.1 (8.4-10.2) mg/dL Albumin 3.6 (3.5-5.0) g/dL Pituitary panel 07/03/18 Range/Units 14:31 Sodium 140 (137-145) mmol/L Potassium 4.2 (3.5-5.1) mmol/L Chloride 106 (98-107) mmol/L Carbon Dioxide 23 (22-30) mmol/L BUN 21 H (7-17) mg/dL Creatinine 0.75 (0.52-1.04) mg/dL Glucose 134 H (74-99) mg/dL Calcium 9.1 (8.4-10.2) mg/dL Adrenal panel 07/03/18 Range/Units 14:31 Sodium 140 (137-145) mmol/L Potassium 4.2 (3.5-5.1) mmol/L Chloride 106 (98-107) mmol/L Carbon Dioxide 23 (22-30) mmol/L BUN 21 H (7-17) mg/dL Creatinine 0.75 (0.52-1.04) mg/dL Glucose 134 H (74-99) mg/dL Calcium 9.1 (8.4-10.2) mg/dL Total Bilirubin 0.9 (0.2-1.3) mg/dL AST 48 H (14-36) U/L ALT 67 H (9-52) U/L Alkaline Phosphatase 115 (38-126) U/L Total Protein 6.7 (6.3-8.2) g/dL Albumin 3.6 (3.5-5.0) g/dL - Imaging CT scan - abdomen: image reviewed Assessment and Plan Assessment: It's unclear whether the patient has acute right pyelonephritis as the cause for her right upper quadrant discomfort. She does not have a history of recurrent urinary tract infections. Her urinalysis suggests a possible urinary tract infection but it's unclear whether this is directly related to the discomfort in the right upper quadrant. The patient has multiple right renal cysts but the appearance on computed tomography scan do not suggest infection of a cyst. I'm in agreement with the initial use of broad-spectrum antibiotics. I would suggest a follow-up computed tomography scan of the abdomen with IV contrast in 2 or 3 days.
[2018-07-04] MEDS ORDERED: ACETAMINOPHEN TAB 500 MG TAB PO PRN (12:40)
[2018-07-04] MEDS ORDERED: ONDANSETRON 4 MG TAB PO PRN (12:40)
[2018-07-04] MEDS ORDERED: NITROGLYCERIN SL TABS 0.4 MG TAB SUBLINGUAL PRN (12:40)
[2018-07-04] MEDS: METOPROLOL TARTRATE 50 MG TAB PO SCH ×2 (13:10→20:12)
[2018-07-04 16:00] VITALS: BMI 29.0
--- NOTE | 2018-07-04 16:01 | P.HPIM ---
History of Present Illness Visit pleasant 72-year-old female came in with compensative right-sided abdominal pain mostly in the right upper quadrant and nausea mostly associated with food. Patient has a moderately severe pain patient has history of ulcerative colitis because of which patient has a ileostomy with liquidy stool which is common for her. Because of this abdominal patient had abdominal CAT scan which showed some lesions in the kidney which is cystic lesions and there is also some perinephric stranding because of which patient is admitted with ceftriaxone be leaving patient may have perinephric abscess or pyelonephritis. Patient is 9 fever. Patient was evaluated urology. Patient does have significantly abnormal urine with highly elevated white blood cell count but doesn't have any dysuria or any increased urinary frequency patient denied any specific pain. Patient the denied any fever denied any cough. Review of Systems REVIEW OF SYSTEMS: CONSTITUTIONAL: No fever, no malaise, no fatigue. HEENT: No recent visual problems or hearing problems. Denied any sore throat. CARDIOVASCULAR: No chest pain, orthopnea, PND, no palpitations, no syncope. PULMONARY: No shortness of breath, no cough, no hemoptysis. GASTROINTESTINAL: Mentioned in HPI NEUROLOGICAL: No headaches, no weakness, no numbness. HEMATOLOGICAL: Denies any bleeding or petechiae. GENITOURINARY: Denies any burning micturition, frequency, or urgency. MUSCULOSKELETAL/RHEUMATOLOGICAL: Denies any joint pain, swelling, or any muscle pain. ENDOCRINE: Denies any polyuria or polydipsia. The rest of the 14-point review of systems is negative. Past Medical History Past Medical History: Atrial Fibrillation, GERD/Reflux, Hypertension Additional Past Medical History / Comment(s): Hx of Ulcerative Colitis(ileostomy) and gout, renal stone,uti, 2016 -2 vertebra/compression fx d/t fall when dancing, 2018-Apr patient fell on ice and had x1 compression fracture History of Any Multi-Drug Resistant Organisms: None Reported Past Surgical History: Section, Tonsillectomy Additional Past Surgical History / Comment(s): ileostomy, COLONOSCOPY, EGD, BILAT CATARACTS, lithrotripsy, x1 week ago she had laser on right eye Past Anesthesia/Blood Transfusion Reactions: No Reported Reaction Additional Past Anesthesia/Blood Transfusion Reaction / Comment(s): Blood transfusion in past-no reaction Past Psychological History: No Psychological Hx Reported Additional Psychological History / Comment(s): Patient is independant, lives with ex and 2 adult sons. Patient has walker, cane, and shower care, no home care services. Smoking Status: Never smoker Past Alcohol Use History: None Reported Past Drug Use History: None Reported - Past Family History Mother Family Medical History: Cancer Additional Family Medical History / Comment(s): Lymphoma, melanoma, non-hodkins Father Family Medical History: Cancer Additional Family Medical History / Comment(s): Lung cancer and throat Medications and Allergies Home Medications Medication Instructions Recorded Confirmed Type Allopurinol [Zyloprim] 300 mg PO DAILY 01/02/16 07/03/18 History Metoprolol Tartrate [Lopressor] 100 mg PO BID 01/02/16 07/03/18 History Omeprazole 20 mg PO BID 01/02/16 07/03/18 History amLODIPine [Norvasc] 10 mg PO DAILY 01/02/16 07/03/18 History Warfarin [Coumadin] 1.25 mg PO TUTH 07/04/16 07/03/18 History Warfarin [Coumadin] 2.5 mg PO SUMOWEFRSA 07/04/16 07/03/18 History traMADol HCL [Ultram] 50 mg PO Q6H PRN 07/04/16 07/03/18 History Magnesium Gluconate [Magonate] 250 mg PO DAILY 10/24/17 07/03/18 History Nitroglycerin Sl Tabs [Nitrostat] 0.4 mg SUBLINGUAL Q5M PRN #25 tab 10/25/17 07/03/18 Rx Acetaminophen Tab [Tylenol Tab] 1,000 mg PO Q6HR PRN 07/03/18 07/03/18 History Ferrous Sulfate [Feosol] 325 mg PO DAILY 07/03/18 07/03/18 History Multivitamin [Multivitamins Adult 1 each PO 07/03/18 History Gummies] Ondansetron [Zofran] 4 mg PO Q8H PRN 07/03/18 07/03/18 History Allergies Allergy/AdvReac Type Severity Reaction Status Date / Time No Known Allergies Allergy Verified 07/03/18 13:23 Physical Exam Vitals: Vital Signs Temp Pulse Pulse Resp BP BP Pulse Ox 07/04/18 11:42 97.6 F 108 H 16 124/77 94 L 07/04/18 05:00 98.2 F 101 H 16 128/80 95 07/03/18 23:35 97.8 F 118 H 18 140/68 99 07/03/18 20:28 108 H 18 134/68 97 07/03/18 18:02 98.3 F 106 H 18 126/64 96 Intake and Output 07/04/18 07/04/18 07/04/18 06:59 14:59 22:59 Intake Total 3440 1200 Balance 3440 1200 Intake: Intake, IV Titration 2900 800 Amount Sodium Chloride 0.9% 1, 600 000 ml @ 100 mls/hr IV . Q10H STA Rx#:[id number] Sodium Chloride 0.9% 1, 1000 000 ml @ 999 mls/hr IV . Q1H1M ONE Rx#:[id number] Sodium Chloride 0.9% 1, 1000 000 ml @ 999 mls/hr IV . Q1H1M STA Rx#:[id number] Vancomycin 1,500 mg In 250 Sodium Chloride 0.9% 250 ml @ 125 mls/hr IVPB Q12H JO Rx#:[id number] cefTRIAXone 2 gm In 50 800 Sodium Chloride 0.9% 50 ml @ 100 mls/hr IVPB ONCE STA Rx#:[id number] Oral 540 400 Other: Voiding Method Toilet Toilet # Voids 5 4 PHYSICAL EXAMINATION: GENERAL: The patient is alert and oriented x3, not in any acute distress. Well developed, well nourished. HEENT: Pupils are round and equally reacting to light. EOMI. No scleral icterus. No conjunctival pallor. Normocephalic, atraumatic. No pharyngeal erythema. No thyromegaly. CARDIOVASCULAR: S1 and S2 present. No murmurs, rubs, or gallops. PULMONARY: Chest is clear to auscultation, no wheezing or crackles. ABDOMEN: Soft, is right upper quadrant tenderness although Silveira's sign is negative patient has ileostomy in the right para umblical area with liquid stool in it MUSCULOSKELETAL: No joint swelling or deformity. EXTREMITIES: No cyanosis, clubbing, or pedal edema. NEUROLOGICAL: Gross neurological examination did not reveal any focal deficits. SKIN: No rashes. Results CBC & Chem 7: 07/03/18 14:31 07/03/18 14:31 Labs: Microbiology - Last 24 Hours (Table) 07/03/18 14:31 Urine Culture - Preliminary Urine,Voided Thrombosis Risk Factor Assmnt - Choose All That Apply Each Factor Represents 1 point: Obesity (BMI >25) Each Risk Factor Represents 2 Points: Age 61-74 years Other congenital or acquired thrombophilia - If yes, enter type in comment: No Thrombosis Risk Factor Assessment Total Risk Factor Score: 3 Thrombosis Risk Factor Assessment Level: Moderate Risk Assessment and Plan Plan: -A right upper quadrant abdominal pain: We cannot rule out UTI pyelonephritis because of which will continue with Rocephin although her symptomology is more consistent with, cholelithiasis or cholecystitis because of which I'll obtain ultrasound of the abdomen. We get the results of right upper quadrant ultrasound will lead switch her antibodies from Rocephin to Unasyn which will cover UTI organisms as well as cholecystitis if she has any will get opinion of neurosurgery as well -Atrial fibrillation presently rate controlled continue with anti-coagulation Gastroesophageal reflux disease Hypertension -history of ulcerative colitis with ileostomy in place. Due to prophylaxis patient is already on Coumadin and subtherapeutic on Coumadin will resume her Coumadin.
[2018-07-04] MEDS: WARFARIN 2.5 MG TAB PO SCH (17:03)
[2018-07-05] MEDS: ONDANSETRON 4 MG/2 ML VIAL IVP PRN ×4 (04:22→23:58)
[2018-07-05] MEDS: KETOROLAC 30 MG/ML 1 ML VIAL IVP PRN ×3 (04:23→17:28)
[2018-07-05] MEDS: VANCOMYCIN 1,500 MG in SODIUM CHLORIDE 0.9% 250 ML IVPB SCH (05:24)
[2018-07-05 07:08] LABS: Anion Gap 8 mmol/L; Blood Urea Nitrogen 7 mg/dL (7-17); Calcium 8.2 mg/dL (8.4-10.2); Carbon Dioxide 25 mmol/L (22-30); Chloride 108 mmol/L (98-107); Glucose 105 mg/dL (74-99); Potassium 3.6 mmol/L (3.5-5.1); Sodium 141 mmol/L (137-145)
--- NOTE | 2018-07-05 08:21 | US ---
EXAMINATION TYPE: US gallbladder DATE OF EXAM: 07/05/2018 COMPARISON: CT 07/03/2018 CLINICAL HISTORY: right upper quadrant pain. EXAM MEASUREMENTS: Liver Length: 12.2 cm Gallbladder Wall: 0.2 cm CBD: not identified Right Kidney: 13.7 x 5.3 x 5.5 cm Technically difficult exam, liver not well visualized. Pancreas: visualized portions wnl Liver: difficult to penetrate Gallbladder: solitary stone with shadowing measures 1.4 cm, wall not thickened. Evidence for sonographic Silveira's sign: patient was very tender. CBD: not seen Right Kidney: large complex area measuring 7.4 x 5.7 x 6.7 cm with surrounding bright echogenicity m aking imaging difficult. Limited views of the pancreas are unremarkable. The liver is normal in size without biliary dilatation. There is a 1.4 cm calculus within the gallbladder. The gallbladder wall is of normal thickness measur ing 2 mm. The distal common hepatic duct was not clearly identified. There is a positive sonographic Silveira's sign. There is a complex cystic mass measuring 7.4 cm involving the lower pole of the right kidney. IMPRESSION: 1. LIMITED EXAMINATION. 2. CHOLELITHIASIS. 3. COMPLEX CYSTIC MASS INVOLVING THE RIGHT KIDNEY. FURTHER IMAGING WITH CT OR MR WOULD BE SUGGESTED.
[2018-07-05] MEDS: PANTOPRAZOLE 40 MG/10 ML VIAL IV SCH (08:56)
[2018-07-05] MEDS: ALLOPURINOL 300 MG TAB PO SCH (08:56)
[2018-07-05] MEDS: METOPROLOL TARTRATE 50 MG TAB PO SCH ×2 (08:56→20:55)
--- NOTE | 2018-07-05 10:33 | P.GSCN ---
History of Present Illness Consult date: 07/05/18 History of present illness: 72-year-old female presented to the emergency department with complaints of right flank and right upper quadrant pain. She states that she has a history of a ileostomy secondary to ulcerative colitis. She states that over 30 years ago she did have a colectomy along with a resection of the rectum and has had a end ileostomy that she is chronically taking care of. She states that earlier in the week, she had very little output from her ostomy, however this has resolved. He states that she has noticed an increase in the amount of urination she has had per day. She does have a chronic history of renal cysts and is followed by Dr. Page for this issue. He has evaluated the patient during this admission. CT of the abdomen and pelvis was performed that did show a lesion that is slightly larger than previous CT done in January 2018. Per urology, it is unclear whether the patient's pain and leukocytosis is from pyelonephritis. Surgery is consulted for evaluation of a possible cholecystitis. The patient is complaining of nausea with oral intake. She denies ever having any gallbladder symptoms previously. Bilirubin levels are normal. Ultrasound of the gallbladder was performed this morning and results do show a 1.4 cm c holelithiasis with no gallbladder wall thickening. Review of Systems All systems: negative Past Medical History Past Medical History: Atrial Fibrillation, GERD/Reflux, Hypertension Additional Past Medical History / Comment(s): Hx of Ulcerative Colitis(ileostomy) and gout, renal stone,uti, 2016 - vertebra/compression fx d/t fall when dancing, 2018-Apr patient fell on ice and had x1 compression fracture History of Any Multi-Drug Resistant Organisms: None Reported Past Surgical History: Section, Tonsillectomy Additional Past Surgical History / Comment(s): ileostomy, COLONOSCOPY, EGD, BILAT CATARACTS, lithrotripsy, x1 week ago she had laser on right eye Past Anesthesia/Blood Transfusion Reactions: No Reported Reaction Additional Past Anesthesia/Blood Transfusion Reaction / Comm: Blood transfusion in past-no reaction Past Psychological History: No Psychological Hx Reported Additional Psychological History / Comment(s): Patient is independant, lives with ex and 2 adult sons. Patient has walker, cane, and shower care, no home care services. Smoking Status: Never smoker Past Alcohol Use History: None Reported Past Drug Use History: None Reported - Past Family History Mother Family Medical History: Cancer Additional Family Medical History / Comment(s): Lymphoma, melanoma, non-hodkins Father Family Medical History: Cancer Additional Family Medical History / Comment(s): Lung cancer and throat Medications and Allergies Home Medications Medication Instructions Recorded Confirmed Type Allopurinol [Zyloprim] 300 mg PO DAILY 01/02/16 07/03/18 History Metoprolol Tartrate [Lopressor] 100 mg PO BID 01/02/16 07/03/18 History Omeprazole 20 mg PO BID 01/02/16 07/03/18 History amLODIPine [Norvasc] 10 mg PO DAILY 01/02/16 07/03/18 History Warfarin [Coumadin] 1.25 mg PO TUTH 07/04/16 07/03/18 History Warfarin [Coumadin] 2.5 mg PO SUMOWEFRSA 07/04/16 07/03/18 History traMADol HCL [Ultram] 50 mg PO Q6H PRN 07/04/16 07/03/18 History Magnesium Gluconate [Magonate] 250 mg PO DAILY 10/24/17 07/03/18 History Nitroglycerin Sl Tabs [Nitrostat] 0.4 mg SUBLINGUAL Q5M PRN #25 tab 10/25/17 07/03/18 Rx Acetaminophen Tab [Tylenol Tab] 1,000 mg PO Q6HR PRN 07/03/18 07/03/18 History Ferrous Sulfate [Feosol] 325 mg PO DAILY 07/03/18 07/03/18 History Multivitamin [Multivitamins Adult 1 each PO 07/03/18 History Gummies] Ondansetron [Zofran] 4 mg PO Q8H PRN 07/03/18 07/03/18 History Allergies Allergy/AdvReac Type Severity Reaction Status Date / Time No Known Allergies Allergy Verified 07/03/18 13:23 Surgical - Exam Osteopathic Statement: *. No significant issues noted on an osteopathic structural exam other than those noted in the History and Physical/Consult. Vital Signs Temp Pulse Resp BP Pulse Ox 99.2 F 129 H 18 137/74 95 07/03/18 12:32 07/03/18 12:32 07/03/18 12:32 07/03/18 12:32 07/03/18 12:32 - General well nourished, no distress - Eyes PERRL - ENT no hearing loss - Respiratory No difficulty with respiration - Abdomen Soft, tender to palpation in the right upper quadrant and right flank, no rebound, no guarding, nondistended - Psychiatric oriented to time, oriented to person, oriented to place Results - Labs 07/03/18 14:31 07/05/18 06:10 Abnormal Lab Results - Last 24 Hours (Table) 07/05/18 Range/Units 06:10 Chloride 108 H (98-107) mmol/L Glucose 105 H (74-99) mg/dL Calcium 8.2 L (8.4-10.2) mg/dL Microbiology - Last 24 Hours (Table) 07/03/18 18:51 Blood Culture - Preliminary Blood No Growth after 24 hours 07/03/18 14:31 Urine Culture - Preliminary Urine,Voided Gram Neg Bacilli Diabetes panel 07/05/18 Range/Units 06:10 Sodium 141 (137-145) mmol/L Potassium 3.6 (3.5-5.1) mmol/L Chloride 108 H (98-107) mmol/L Carbon Dioxide 25 (22-30) mmol/L BUN 7 (7-17) mg/dL Creatinine 0.55 (0.52-1.04) mg/dL Glucose 105 H (74-99) mg/dL Calcium 8.2 L (8.4-10.2) mg/dL Calcium panel 07/05/18 Range/Units 06:10 Calcium 8.2 L (8.4-10.2) mg/dL Pituitary panel 07/05/18 Range/Units 06:10 Sodium 141 (137-145) mmol/L Potassium 3.6 (3.5-5.1) mmol/L Chloride 108 H (98-107) mmol/L Carbon Dioxide 25 (22-30) mmol/L BUN 7 (7-17) mg/dL Creatinine 0.55 (0.52-1.04) mg/dL Glucose 105 H (74-99) mg/dL Calcium 8.2 L (8.4-10.2) mg/dL Adrenal panel 07/05/18 Range/Units 06:10 Sodium 141 (137-145) mmol/L Potassium 3.6 (3.5-5.1) mmol/L Chloride 108 H (98-107) mmol/L Carbon Dioxide 25 (22-30) mmol/L BUN 7 (7-17) mg/dL Creatinine 0.55 (0.52-1.04) mg/dL Glucose 105 H (74-99) mg/dL Calcium 8.2 L (8.4-10.2) mg/dL - Imaging CT scan - abdomen: report reviewed, image reviewed CT scan - pelvis: report reviewed, image reviewed US - abdomen: report reviewed, image reviewed (Ultrasound of abdomen does show 1.4 cm cholelithiasis with no gallbladder wall thickening) Assessment and Plan (1) RUQ abdominal pain Narrative/Plan: 72-year-old female with right upper quadrant abdominal pain - CT and abdominal ultrasound were reviewed. The patient does have cholelithi asis with a 1.4 cm stone, however there is no gallbladder wall thickening. With leukocytosis and no gallbladder wall thickening or pericholecystic fluid, it does not appear that the patient has acute cholecystitis although she does have cholelithiasis. Biliary etiology for the pain is unlikely. I would recommend continued treatment for UTI and possible pyelonephritis with antibiotics at this time. If pain continues with this treatment plan, we can consider HIDA scan for further evaluation. If surgery is required during this admission, I would recommend holding Coumadin or reversing with FFP prior to any surgical intervention. CBC is pending. I will make further recommendations during the patient's admission. Thank you for this consultation. I look forward in providing in this patient's care. Current Visit: Yes Status: Acute Code(s): R10.11 - RIGHT UPPER QUADRANT PAIN SNOMED Code(s): 497490834
--- NOTE | 2018-07-05 11:00 | P.PN ---
Progress Note - Text Progress Note Date: 07/05/18 The patient is afebrile and normotensive. She says that her right upper quadrant pain is slightly improved although she still has some nausea. Gallbladder ultrasound performed yesterday confirmed a gallstone but it's unclear whether her right upper quadrant pain, nausea and vomiting are related to this. Preliminary urine culture is growing a gram-negative bacillus. Blood cultures are no growth. I remain unconvinced that the patient's right upper quadrant pain is related to acute pyelonephritis just based on her clinical presentation. She will be continued on her current antibiotics pending results of a urine culture. Repeat imaging of the abdomen with either computed tomography scan can with IV contrast or MR could be set up as an outpatient later in the month to reassess the appearance of the right kidney.
--- NOTE | 2018-07-05 14:37 | P.PN ---
Subjective 72-year-old female was admitted secondary to right upper quadrant abdominal pain and patient is found to have cholelithiasis no evidence of cholecystitis. Patient had history of ulcerative colitis and has ileostomy in place. Patient is also found to have multiple renal cysts along with the possibility of urinary tract infection which definitely cannot be ruled out at this point of time patient has gram-negative bacilli in the urine patient is presently on Unasyn. Cholecystitis cannot be completely ruled out either. General surgery evaluated the patient neurology evaluated the patient patient pain improved slightly is still quite a bit nauseous. If she continues to be nauseous than Toradol may need to be discontinued at the time, patient is presently on Protonix. Constitutional: Denied any fatigue denied any fever. Cardio vascular: denied any chest pain, palpitations Gastrointestinal as mentioned in HPI Pulmonary: Denied any shortness of breath cough Neurologic denied any new focal deficits All inpatient medications were reviewed and appropriate changes in these medications as dictated in the interval history and assessment and plan. Objective - Vital Signs Vital signs: Vital Signs Temp 98.4 F 07/05/18 11:46 Pulse 85 07/05/18 11:46 Resp 16 07/05/18 11:46 BP 118/72 07/05/18 11:46 Pulse Ox 96 07/05/18 11:46 Intake & Output 07/04/18 07/05/18 07/05/18 18:59 06:59 18:59 Intake Total 1200 1680 Balance 1200 1680 Weight 86.5 kg Intake: Intake, IV Titration 800 900 Amount Sodium Chloride 0.9% 1, 400 000 ml @ 100 mls/hr IV . Q10H [facility] Rx#:[id number] Vancomycin 1,500 mg In 500 Sodium Chloride 0.9% 250 ml @ 125 mls/hr IVPB Q12H [facility] Rx#:[id number] cefTRIAXone 2 gm In 800 Sodium Chloride 0.9% 50 ml @ 100 mls/hr IVPB ONCE [facility] Rx#:[id number] Oral 400 780 Other: Voiding Method Toilet Toilet Toilet # Voids 4 3 3 # Bowel Movements 1 - Exam PHYSICAL EXAMINATION: GENERAL: The patient is alert and oriented x3, not in any acute distress. Well developed, well nourished. HEENT: Pupils are round and equally reacting to light. EOMI. No scleral icterus. No conjunctival pallor. Normocephalic, atraumatic. No pharyngeal erythema. No thyromegaly. CARDIOVASCULAR: S1 and S2 present. No murmurs, rubs, or gallops. PULMONARY: Chest is clear to auscultation, no wheezing or crackles. ABDOMEN: Soft, is right upper quadrant tenderness although Silveira's sign is negative patient has ileostomy in the right para umblical area with liquid stool in it MUSCULOSKELETAL: No joint swelling or deformity. EXTREMITIES: No cyanosis, clubbing, or pedal edema. NEUROLOGICAL: Gross neurological examination did not reveal any focal deficits. SKIN: No rashes. - Labs CBC & Chem 7: 07/03/18 14:31 07/05/18 06:10 Labs: Abnormal Lab Results - Last 24 Hours (Table) 07/05/18 Range/Units 06:10 Chloride 108 H (98-107) mmol/L Glucose 105 H (74-99) mg/dL Calcium 8.2 L (8.4-10.2) mg/dL Microbiology - Last 24 Hours (Table) 07/03/18 18:51 Blood Culture - Preliminary Blood No Growth after 24 hours 07/03/18 14:31 Urine Culture - Preliminary Urine,Voided Gram Neg Bacilli Assessment and Plan Plan: -A right upper quadrant abdominal pain: Probably secondary to cholelithiasis cholecystitis cannot be completely ruled out continue with Unasyn, We cannot rule out UTI pyelonephritis , patient has gram-negative bacilli in the urine -Atrial fibrillation presently rate controlled continue with anti-coagulation Gastroesophageal reflux disease Hypertension -history of ulcerative colitis with ileostomy in place. Due to prophylaxis patient is already on Coumadin and subtherapeutic on Coumadin
[2018-07-05] MEDS: AMPICILLIN-SULBACTAM 3 GM in SODIUM CHLORIDE 0.9% 100 ML IVPB SCH ×2 (15:20→23:58)
[2018-07-05] MEDS ORDERED: AMPICILLIN SULBACTAM IVPB SCH (16:00)
[2018-07-05] MEDS ORDERED: SODIUM CHLORIDE 0.9% IVPB SCH (16:00)
[2018-07-05] MEDS ORDERED: VANCOMYCIN TROUGH DUE 1 EACH MISC MISCELLANE ONE (17:00)
[2018-07-05] MEDS: WARFARIN 2.5 MG TAB PO SCH (17:34)
[2018-07-05] MEDS: HYDROmorphone 0.5 MG/0.5 ML SYRINGE IVP PRN (23:58)
[2018-07-06] MEDS: MORPHINE SULFATE 4 MG/ML SYRINGE IV PRN ×3 (03:41→14:18)
[2018-07-06 05:57] VITALS: PULSE 87; RESP 16
[2018-07-06 07:18] LABS: Basophils % (A) 0 %; Eosinophils # (A) 0.2 k/uL (0-0.7); Eosinophils % (A) 2 %; HCT 39.5 % (34.0-46.0); HGB 12.6 gm/dL (11.4-16.0); Lymphocytes % (A) 9 %; MCH 29.1 pg (25.0-35.0); MCHC 31.8 g/dL (31.0-37.0); MCV 91.5 fL (80.0-100.0); Monocytes # (A) 0.5 k/uL (0-1.0); Monocytes % (A) 5 %; Neutrophils # (A) 9.2 k/uL (1.3-7.7); Neutrophils % (A) 82 %; Platelet Count 442 k/uL (150-450); RBC 4.32 m/uL (3.80-5.40); RDW 14.7 % (11.5-15.5); WBC 11.1 k/uL (3.8-10.6)
[2018-07-06 07:19] LABS: INR 1.1 (<1.2); Prothrombin Time 11.9 sec (9.0-12.0)
[2018-07-06 07:22] LABS: ALT 62 U/L (9-52); AST 26 U/L (14-36); Albumin 3.1 g/dL (3.5-5.0); Alkaline Phosphatase 91 U/L (38-126); Anion Gap 7 mmol/L; Blood Urea Nitrogen 8 mg/dL (7-17); Calcium 8.7 mg/dL (8.4-10.2); Carbon Dioxide 28 mmol/L (22-30); Chloride 108 mmol/L (98-107); Glucose 105 mg/dL (74-99); Potassium 3.6 mmol/L (3.5-5.1); Sodium 143 mmol/L (137-145); Total Bilirubin 0.5 mg/dL (0.2-1.3); Total Protein 5.9 g/dL (6.3-8.2)
[2018-07-06] MEDS: AMPICILLIN-SULBACTAM 3 GM in SODIUM CHLORIDE 0.9% 100 ML IVPB SCH (07:29)
[2018-07-06] MEDS: ALLOPURINOL 300 MG TAB PO SCH (07:30)
[2018-07-06] MEDS: PANTOPRAZOLE 40 MG/10 ML VIAL IV SCH (07:30)
[2018-07-06] MEDS: METOPROLOL TARTRATE 50 MG TAB PO SCH (07:30)
[2018-07-06 11:45] VITALS: BP 133/74; TEMP 98.3
--- NOTE | 2018-07-06 23:35 | DS ---
DISCHARGE SUMMARY DATE OF ADMISSION: July 03, 2018 DATE OF DISCHARGE: July 06, 2018. FINAL DIAGNOSES: 1. Acute right-sided pyelonephritis. 2. Gallstones, probably asymptomatic. 3. Right kidney mass, being followed by Dr. Page. 4. Persistent atrial fibrillation chronically on Coumadin. 5. Gastroesophageal reflux disease. 6. Essential hypertension. 7. Hepatic steatosis. HOSPITAL COURSE: This patient presented with right-sided abdominal pain, did not have a fever, but did have a elevated white count of 16.3 that did come down to 11.1. Urine was rather infected appearing and urine culture did grow Klebsiella pneumoniae. The patient had a CT scan of the abdomen and pelvis did show fat, perinephric fat stranding of the renal mass which is being followed by Dr. Page. The patient also noted to have severe hepatic steatosis. The patient is now doing much better. The patient's gallbladder ultrasound did not show any wall thickness or any dilatation of the common bile duct. Clinically, as patient is doing much better, it was felt at this point to complete a course of antibiotics and have the patient follow up with Dr. Prajapati from surgery and also Dr. Page from Urology. Also discussed with Dr. Prajapati this morning and he agreed that there was not enough convincing evidence for cholecystitis to go ahead with surgery. Total time spent during discharge and discussion planning was more than 35 minutes. PHYSICAL EXAMINATION: Temperature 98.3. Pulse 57, respiration 16, blood pressure 133/74, pulse ox 96% on room air. Some right upper quadrant tenderness. No renal angle tenderness. INVESTIGATION: White count 11.1, hemoglobin 12.6, potassium 3.6. Creatinine normal. Urine cultures growing Klebsiella pneumoniae. HOME GO MEDICATIONS: 1. Allopurinol 300 mg a day. 2. Lopressor 100 mg b.i.d. 3. Omeprazole 20 mg b.i.d. 4. Norvasc 10 mg p.o. daily. 5. Coumadin 1.25 p.o. on Tuesdays, 2.5 on Friday, Friday, Friday, Friday, Friday. 6. Ultram 50 mg q.6h p.r.n. 7. Magnesium 250 mg p.o. daily. 8. Nitrostat 0.4 sublingual q.5 p.r.n. 9. Tylenol 1000 mg q.6h p.r.n. 10.Iron 325 p.o. daily. 11.Multivitamin 1 tablets daily. 12.Zofran 4 mg q.8 p.r.n. 13.Keflex 500 mg q.6 28 capsules. FOLLOWUP: Follow up with Dr. Sánchez in 2 days, follow up with Dr. Page in 1 week. Follow up with Dr. Prajapati, July 15, 2018. Copy Dr. Sánchez. MMGIORGIOL / YUNIELN: [id number] /
[2018-07-07] MEDS ORDERED: PANTOPRAZOLE 40 MG TABLET PO SCH (07:30)
[2018-07-07] MEDS ORDERED: WARFARIN 1.25 MG TAB PO SCH (18:00)
== END 2018-07-06 16:36 | disposition home or self-care (01) | DRG 690 ==
LOC: EC 12:18 → 3NMEDONC 20:40
PROVIDERS: ADMIT Hospitalist; ATTEND Hospitalist
DX: N10 Acute pyelonephritis (principal); I48.1 Persistent atrial fibrillation; K80.80 Other cholelithiasis without obstruction; K21.9 Gastro-esophageal reflux disease without esophagitis; I10 Essential (primary) hypertension; N28.89 Other specified disorders of kidney and ureter; K76.0 Fatty (change of) liver, not elsewhere classified; N28.1 Cyst of kidney, acquired; Z79.01 Long term (current) use of anticoagulants; Z93.2 Ileostomy status; Z87.442 Personal history of urinary calculi; Z87.440 Personal history of urinary (tract) infections; Z91.81 History of falling; Z79.899 Other long term (current) drug therapy; Z80.1 Family history of malignant neoplasm of trachea, bronchus and lung; Z80.7 Family history of other malignant neoplasms of lymphoid, hematopoietic and related tissues; Z80.8 Family history of malignant neoplasm of other organs or systems
CPT/HCPCS: 36415; 74018; 74176; 76705; 80048; 80053; 81001; 82150; 83690; 85025; 85610; 85730; 87040; 87077; 87086; 87186; 87324; 96361; 96365; 96366; 96367; 96375; 99285

== ENCOUNTER → 2018-07-21 | Outpatient (CLI) | payer MEDICARE, BC ==
--- NOTE | 2018-07-21 08:22 | MR ---
EXAMINATION TYPE: MR kidney wo/w con DATE OF EXAM: 07/21/2018 COMPARISON: CT abdomen and pelvis [address] abdomen study January 23, [address] tudies.. HISTORY: R lower pole mass, abnormal CT. CONTRAST: Standard multiplanar, multisequence MRI departmental protocol utilizing 9 mL intravenous Gadavist beltran olinium contrast. FINDINGS: Kidneys: Left kidney redemonstrates cortical thinning with scattered simple appearing thin-walled cys ts of varying sizes and shapes redemonstrated. Medially at upper pole level left kidney there is part ially exophytic lesion of low T1 and increased T2 signal less than simple appearing cyst that has dep endent curvilinear area of increased T1 and T2 signal without enhancement consistent with proteinaceo us cyst. No hydronephrosis is evident. Right kidney show similar cortical thinning with scattered simple-appearing thin-walled cysts of vary ing sizes and shapes. There are a few more nonsimple thin-walled proteinaceous cysts scattered throug hout the right kidney as there are nonenhancing lesions of less T2 intensity scattered throughout the right kidney. The area of concern anteriorly mid pole level right kidney redemonstration partially e xophytic 6.1 x 5.9 cm transversely axial image 15 x 5.9 cm craniocaudal dimension round lesion of iglesia tral T2 hyperintensity and T1 hypointensity with some irregular wall enhancement that is slightly thi ckened and nodular and some thin enhancing septa along the right lateral margin. One must strongly co nsider infection or abscess at this level at site of prior simple cyst. Strict clinical correlation a dvised. Cystic neoplasm is in differential. Either way further workup is necessary based on strict cl inical correlation. Patent draining right renal vein noted. No hydronephrosis is evident bilaterally. Other: There is occasional simple appearing thin-walled cysts scattered throughout the liver with pro minent left hepatic lobe redemonstrated. There is irregular shaped subcentimeter dependent gallstone in gallbladder lumen. Spleen, pancreas, and both adrenal glands are normal in size. There is no suspi cious bowel dilatation. There is right lower quadrant ostomy with parastomal hernia partially imaged redemonstrated. Mild to moderate height loss superior L2 endplate is redemonstrated. IMPRESSION: Enlarging partially exophytic cystic lesion anteriorly mid pole level right kidney has enhancing slig htly thickened nodular wall with some enhancing septa favoring infection or abscess, correlate clinic ally. Adeola 4 Cystic neoplasm is in differential. Either way further workup is necessary based on c linical correlation.
== END | disposition home or self-care (01) ==
LOC: RADMRIMAIN 07:12
PROVIDERS: ATTEND Urology
DX: D41.01 Neoplasm of uncertain behavior of right kidney (principal)
CPT/HCPCS: 74183; A9585

== ENCOUNTER 2018-07-23 12:54 | Inpatient (IN) | payer MEDICARE, BC ==
[~2018-07-23 12:54] MED LIST changes: +HEPARIN SODIUM,PORCINE 5,000 UNIT/ML 1 ML VIAL SQ ONE; -HYDROmorphone 1 MG/ML 1 ML SYRINGE IVP PRN; -LACTATED RINGERS 1,000 ML IV SCH; +LIDOCAINE 1% 20 ML VIAL (10MG/ML) FOR IV START INTRADERMA PRN; -Pre Op ABX Message 1 EACH MISC MISCELLANE ONE; +ceFAZolin IN SWFI 2 GM/20 ML SYRINGE IVP ONE
[2018-07-23] MEDS: LACTATED RINGERS 1,000 ML IV SCH ×2 (13:26→20:08)
[2018-07-23] MEDS ORDERED: LIDOCAINE 1% INJ 10MG/ML (20 ML MDV) ONE (14:12)
[2018-07-23] MEDS ORDERED: PHENYLEPHRINE-0.9% NACL SYG 1 MG/10 ML SYRINGE ONE (14:12)
[2018-07-23] MEDS ORDERED: SUCCINYLCHOLINE CHLORIDE 100 MG/5 ML SYR IV ONE (14:12)
[2018-07-23] MEDS ORDERED: GLYCOPYRROLATE 0.2 MG/ML 2 ML VIAL ONE (14:12)
[2018-07-23] MEDS ORDERED: MORPHINE SULFATE 10 MG/ML SYRINGE ONE (14:12)
[2018-07-23] MEDS ORDERED: PROPOFOL 10 MG/ML 20 ML VIAL IV ONE (14:12)
[2018-07-23] MEDS ORDERED: MIDAZOLAM 2 MG/2 ML VIAL ONE (14:12)
[2018-07-23] MEDS ORDERED: ROCURONIUM BROMIDE 10 MG/ML 10 ML VIAL IV ONE (14:12)
[2018-07-23] MEDS ORDERED: fentaNYL (PF) 50 MCG/ML 2 ML AMP ONE (14:12)
[2018-07-23] MEDS ORDERED: NEOSTIGMINE 1 MG/ML 10 ML VIAL ONE (14:12)
[2018-07-23] MEDS ORDERED: BUPIVACAINE (PF) 0.25% 30 ML VIAL SQ ONE (14:40)
[2018-07-23] MEDS ORDERED: LACTATED RINGERS 1,000 ML IV ONE ×2 (16:41→18:18)
[2018-07-23] MEDS ORDERED: NALOXONE 0.4 MG/ML 1 ML VIAL IV PRN (16:55)
[2018-07-23] MEDS: HYDROmorphone 0.5 MG/0.5 ML SYRINGE IVP PRN ×6 (16:59→20:57)
--- NOTE | 2018-07-23 17:06 | P.OP ---
Date of Procedure: 07/23/18 Preoperative Diagnosis: Symptomatic cholelithiasis Postoperative Diagnosis: Symptomatic cholelithiasis Procedure(s) Performed: Open cholecystectomy Anesthesia: JÚNIOR Surgeon: Isacc Prajapati Pathology: other (Gallbladder and contents) Condition: stable Disposition: floor Indications for Procedure: 72-year-old female with complaints of right upper quadrant pain was initially admitted to the hospital and treated for pyelonephritis. After her treatment for pyelonephritis was completed, she continued to have right upper quadrant pain. She also was found to have inflammatory changes around her gallbladder on imaging. 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 Plan was for a laparoscopic cholecystectomy with possible open cholecystectomy based on intra-abdominal scar tissue. Operative Findings: Extensive adhesions throughout the abdomen Cholelithiasis Description of Procedure: The patient is brought into the operating suite and placed in supine position on the operating table. Sedation was provided by anesthesia patient underwent endotracheal intubation. The patient was then prepped and draped in regular sterile fashion. A left upper quadrant incision was made and a 5 mm trocar was used to enter the abdomen under direct visualization. Pneumoperitoneum was achieved and the scope was placed. The patient was noted to have a significant amount of adhesions throughout the abdomen. An additional 5 mm port was then placed in the left lower quadrant and further examination of the entire abdomen was performed. The gallbladder was noted to have some adhesive tissue around it. Due to these findings, it was decided to perform an open cholecystectomy. A paramedian incision was made approximately 5 cm in length with a 15 blade scalpel on the right side. Hemostasis was obtained using electrocautery. Dissection was carried down to the posterior rectus fascia which was grasped with hemostats and entered with a #10 scalpel. Phimosis was reduced extremity incision and the abdomen was entered. The gallbladder was clearly visualized and brought into view. A Bookwalter retractor was then put into place exposing the gallbladder and the biliary tree. Dissection was then carried to identify both the cystic artery and the cystic duct. Both were easily identified. The cystic artery was skeletonized and was tied off using 2-0 silk suture. Ties were placed about the proximal and distal aspect of the cystic artery. The cystic artery was then ligated. The cystic duct was then skeletonized. Two silk #2 sutures were placed proximally and one was placed distally to tie off the cystic duct. The cystic duct was then ligated. The gallbladder was then removed off of the liver bed and handed off as specimen. Irrigation was then used in the right upper quadrant. Hemostasis was noted to be maintained. The peritoneum was then closed with a running 3-0 Vicryl suture. The rectus fascia was closed with a running 0 Vicryl suture. Skin ashwin were used on the skin. Previous 5 mm incision sites were closed using 4-0 Vicryl subcuticular sutures. Sterile dressing was applied. The patient was awakened in the operating suite in stable condition.
[2018-07-23] MEDS ORDERED: fentaNYL (PF) 50 MCG/ML 2 ML AMP IVP ONE ×2 (17:17→17:25)
[2018-07-23] MEDS ORDERED: PROMETHAZINE INJ 25 MG/ML 1 ML VIAL IVPB ONE (17:57)
[2018-07-23] MEDS: HEPARIN SODIUM,PORCINE 5,000 UNIT/ML 1 ML VIAL SQ SCH (23:12)
[2018-07-23] MEDS: AMPICILLIN-SULBACTAM 3 GM in SODIUM CHLORIDE 0.9% 100 ML IVPB SCH (23:12)
[2018-07-24] MEDS: HYDROmorphone 0.5 MG/0.5 ML SYRINGE IVP PRN ×7 (00:02→23:56)
[2018-07-24] MEDS: LACTATED RINGERS 1,000 ML IV SCH ×4 (01:28→21:02)
[2018-07-24] MEDS: HYDROcodone/APAP 5-325MG 1 EACH TAB PO PRN ×3 (05:42→20:07)
[2018-07-24] MEDS ORDERED: NITROGLYCERIN SL TABS 0.4 MG TAB SUBLINGUAL PRN (06:44)
[2018-07-24 08:12] LABS: Basophils % (A) 0 %; Eosinophils # (A) 0.1 k/uL (0-0.7); Eosinophils % (A) 1 %; HCT 36.3 % (34.0-46.0); HGB 11.2 gm/dL (11.4-16.0); Hypochromasia Slight; Lymphocytes # (A) 0.9 k/uL (1.0-4.8); Lymphocytes % (A) 8 %; MCH 28.3 pg (25.0-35.0); MCHC 30.9 g/dL (31.0-37.0); MCV 91.7 fL (80.0-100.0); Mean Platelet Volume 6.6; Monocytes # (A) 0.5 k/uL (0-1.0); Monocytes % (A) 4 %; Neutrophils # (A) 10.6 k/uL (1.3-7.7); Neutrophils % (A) 87 %; Platelet Count 356 k/uL (150-450); RBC 3.96 m/uL (3.80-5.40); RDW 14.6 % (11.5-15.5); WBC 12.2 k/uL (3.8-10.6)
[2018-07-24 08:41] LABS: ALT 48 U/L (9-52); AST 36 U/L (14-36); Albumin 2.7 g/dL (3.5-5.0); Alkaline Phosphatase 71 U/L (38-126); Anion Gap 9 mmol/L; Blood Urea Nitrogen 15 mg/dL (7-17); Calcium 8.3 mg/dL (8.4-10.2); Carbon Dioxide 22 mmol/L (22-30); Chloride 108 mmol/L (98-107); Glucose 123 mg/dL (74-99); Potassium 3.8 mmol/L (3.5-5.1); Sodium 139 mmol/L (137-145); Total Bilirubin 0.5 mg/dL (0.2-1.3); Total Protein 5.6 g/dL (6.3-8.2)
[2018-07-24] MEDS: AMPICILLIN-SULBACTAM 3 GM in SODIUM CHLORIDE 0.9% 100 ML IVPB SCH ×3 (08:54→23:42)
[2018-07-24] MEDS: HEPARIN SODIUM,PORCINE 5,000 UNIT/ML 1 ML VIAL SQ SCH ×3 (08:59→23:42)
[2018-07-24] MEDS: PANTOPRAZOLE 40 MG/10 ML VIAL IV SCH (08:59)
[2018-07-24] MEDS: MAGNESIUM OXIDE 400 MG TAB PO SCH (09:00)
[2018-07-24] MEDS: ALLOPURINOL 300 MG TAB PO SCH (09:00)
[2018-07-24] MEDS: amLODIPine 10 MG TAB PO SCH (09:00)
[2018-07-24] MEDS: MULTIVITAMINS, THERA 1 EACH TAB PO SCH (09:00)
[2018-07-24] MEDS: METOPROLOL TARTRATE 50 MG TAB PO SCH ×2 (09:00→20:08)
[2018-07-24] MEDS: FERROUS SULFATE 325 MG TAB PO SCH (09:00)
--- NOTE | 2018-07-24 11:34 | P.PN ---
Subjective Progress Note Date: 07/24/18 Patient seen and examined at bedside. No acute events. States she is having some pain around her incision site. Denies any nausea or vomiting. States she has been up to ambulate to the bathroom. She has also been up to the chair. Objective - Vital Signs Vital signs: Vital Signs Temp 98.7 F 07/24/18 07:08 Pulse 93 07/24/18 10:32 Resp 15 07/24/18 00:50 BP 115/75 07/24/18 10:32 Pulse Ox 93 L 07/24/18 10:32 Intake & Output 07/23/18 07/24/18 07/24/18 18:59 06:59 18:59 Intake Total 1999 1240 Output Total 20 25 10 Balance 1979 1215 -10 Intake: IV 1999 Intake, IV Titration 1000 Amount Lactated Ringers 1,000 ml 1000 @ 100 mls/hr IV .Q10H [facility] Rx#:[id number] Oral 240 Output: Drainage 25 10 Right Abdomen 25 10 Estimated Blood Loss 20 Other: Voiding Method Bedpan # Voids 2 1 - Constitutional General appearance: Present: cooperative, no acute distress - EENT Eyes: Present: PERRLA - Respiratory Details: No difficulty with respiration - Gastrointestinal Gastrointestinal Comment(s): Soft, appropriate tenderness, nondistended, no rebound, no guarding, no tenderness to percussion, ostomy site is pink and patent with no output - Musculoskeletal Musculoskeletal: Present: generalized weakness - Psychiatric Psychiatric: Present: A&O x's 3 - Labs CBC & Chem 7: 07/24/18 07:52 07/24/18 07:52 Labs: Abnormal Lab Results - Last 24 Hours (Table) 07/24/18 07/24/18 Range/Units 07:52 07:52 WBC 12.2 H (3.8-10.6) k/uL Hgb 11.2 L (11.4-16.0) gm/dL MCHC 30.9 L (31.0-37.0) g/dL Neutrophils # 10.6 H (1.3-7.7) k/uL Lymphocytes # 0.9 L (1.0-4.8) k/uL Chloride 108 H (98-107) mmol/L Glucose 123 H (74-99) mg/dL Calcium 8.3 L (8.4-10.2) mg/dL Total Protein 5.6 L (6.3-8.2) g/dL Albumin 2.7 L (3.5-5.0) g/dL Assessment and Plan (1) RUQ abdominal pain Narrative/Plan: Patient is postoperative day #1 from laparoscopic converted to open cholecystectomy secondary to symptomatic cholelithiasis - Advance to soft diet - Will begin Coumadin starting tomorrow - Increase activity as tolerated - Medical recommendations for multiple medical issues - Decrease IV fluids - Pain control - Incentive spirometry Current Visit: No Status: Acute Code(s): R10.11 - RIGHT UPPER QUADRANT PAIN SNOMED Code(s): 002729131
[2018-07-24 12:38] LABS: Prothrombin Time 10.4 sec (9.0-12.0)
--- NOTE | 2018-07-24 22:29 | P.CONS ---
History of Present Illness - Reason for Consult Consult date: 07/24/18 medical management - Chief Complaint Right upper quadrant pain - History of Present Illness Patient is a 73-year-old female with a known history of atrial fibrillation, on anticoagulation with Coumadin, history of ulcerative colitis and ileostomy and hypertension, GERD was admitted to the hospital for cholecystectomy. Patient was recently treated for pyelonephritis. Was also found to have symptomatic cholelithiasis. Patient underwent laparoscopic converted to open cholecystectomy secondary to symptomatic a changes. Currently patient does have some soreness at the abdominal surgical site. No complaints of nausea vomiting or diarrhea. Patient has not passed flatus. No fever no chills. No complaints of chest pain or shortness of breath. Patient was tachycardic initially and is currently improved after starting metoprolol. Review of Systems Constitutional: Patient denies any fever or chills . No generalized weakness or weight loss. Abdomen: Patient denied nausea vomiting and diarrhea and abdominal pain. Soreness at the surgical site. Cardiovascular: Patient denies any chest pain or short of breath no palpitations. Respiratory: patient denied any cough is from production. No shortness of breath Neurologic: Patient denied any numbness or tingling headache. Musculoskeletal: Patient denies any complaints of joint swelling or deformity. Skin: Negative Psychiatric: Negative Endocrine: No heat or cold intolerance. No recent weight gain. Genitourinary: No dysuria or hematuria. All other 14 point ROS negative except the above Past Medical History Past Medical History: Atrial Fibrillation, GERD/Reflux, Hypertension Additional Past Medical History / Comment(s): Hx of Ulcerative Colitis(has ileostomy) gout, hx of renal stone, 2016 -2 vertebra/compression fx d/t fall when dancing, 2018-Apr patient fell on ice and had x1 additional vertebra c ompression fracture. Hx of kidney mass follow with Dr Page History of Any Multi-Drug Resistant Organisms: None Reported Past Surgical History: Section, Tonsillectomy Additional Past Surgical History / Comment(s): ileostomy, COLONOSCOPY, EGD, BILAT CATARACTS, lithrotripsy, laser sx ralph eye Past Anesthesia/Blood Transfusion Reactions: No Reported Reaction Additional Past Anesthesia/Blood Transfusion Reaction / Comm: Blood transfusion in past-no reaction Past Psychological History: No Psychological Hx Reported Additional Psychological History / Comment(s): . Smoking Status: Never smoker Past Alcohol Use History: None Reported Past Drug Use History: None Reported - Past Family History Mother Family Medical History: Cancer Additional Family Medical History / Comment(s): Lymphoma, melanoma, non-hodkins Father Family Medical History: Cancer Additional Family Medical History / Comment(s): Lung cancer and throat Medications and Allergies Home Medications Medication Instructions Recorded Confirmed Type Allopurinol [Zyloprim] 300 mg PO DAILY 01/02/16 07/23/18 History Metoprolol Tartrate [Lopressor] 100 mg PO BID 01/02/16 07/23/18 History Omeprazole 20 mg PO BID 01/02/16 07/23/18 History amLODIPine [Norvasc] 10 mg PO DAILY 01/02/16 07/23/18 History Warfarin [Coumadin] 1.25 mg PO TUTH 07/04/16 07/23/18 History Warfarin [Coumadin] 2.5 mg PO SUMOWEFRSA 07/04/16 07/23/18 History traMADol HCL [Ultram] 50 mg PO Q6H PRN 07/04/16 07/23/18 History Magnesium Gluconate [Magonate] 250 mg PO DAILY 10/24/17 07/23/18 History Nitroglycerin Sl Tabs [Nitrostat] 0.4 mg SUBLINGUAL Q5M PRN #25 tab 10/25/17 07/23/18 Rx Acetaminophen Tab [Tylenol] 1,000 mg PO Q6HR PRN 07/03/18 07/23/18 History Ferrous Sulfate [Iron (65 MG 325 mg PO DAILY 07/03/18 07/23/18 History Elemental)] Ondansetron [Zofran] 4 mg PO Q8H PRN 07/03/18 07/23/18 History Multivitamins, Thera [Multivitamin 1 tab PO DAILY 07/22/18 07/23/18 History (formulary)] Allergies Allergy/AdvReac Type Severity Reaction Status Date / Time No Known Allergies Allergy Verified 07/23/18 18:45 Physical Exam Vitals: Vital Signs Temp Pulse Resp BP Pulse Ox 07/24/18 10:32 93 115/75 93 L 07/24/18 07:08 98.7 F 112 H 116/64 92 L 07/24/18 00:50 98.4 F 114 H 15 137/75 92 L 07/23/18 19:40 99.2 F 117 H 18 132/71 94 L 07/23/18 18:30 105 H 16 133/63 98 07/23/18 18:00 105 H 16 125/81 97 07/23/18 17:45 106 H 16 140/67 99 07/23/18 17:30 107 H 16 139/75 98 07/23/18 17:15 105 H 14 141/67 100 07/23/18 17:00 97 16 118/68 98 07/23/18 16:49 97.9 F 95 18 118/68 98 07/23/18 13:12 97.8 F 107 H 16 134/71 97 Intake and Output 07/23/18 07/24/18 07/24/18 22:59 06:59 14:59 Intake Total 1000 1240 Output Total 20 25 10 Balance 980 1215 -10 Intake: IV 1000 Intake, IV Titration 1000 Amount Lactated Ringers 1,000 ml 1000 @ 100 mls/hr IV .Q10H [facility] Rx#:[id number] Oral 240 Output: Drainage 25 10 Right Abdomen 25 10 Estimated Blood Loss 20 Other: Voiding Method Bedpan # Voids 2 2 1 PHYSICAL EXAMINATION: Patient is lying in the bed comfortably, no acute distress, awake alert and oriented.. HEENT: Normocephalic. Neck is supple. Pupils reactive. Nostrils clear. Oral cavity is moist. Ears reveal no drainage. Neck reveals no JVD, carotid bruits, or thyromegaly. CHEST EXAMINATION: Trachea is central. Symmetrical expansion. Bibasilar diminished air entry. Lung schulz clear to auscultation and percussion. CARDIAC: Normal S1, S2 with no gallops. No murmurs ABDOMEN: Soft. Mild tenderness over the surgical site right upper quadrant. Bowel sounds diminished. No organomegaly. No abdominal bruits. Extremities: reveal no edema. No clubbing or cyanosis Neurologically awake, alert, oriented x3 with well-coordinated movements. No focal deficits noted Skin: No rash or skin lesions. Psychiatric: Coperative. Nonsuicidal Musculoskeletal: No joint swelling or deformity. Normal range of motion. Results CBC & Chem 7: 07/24/18 07:52 07/24/18 07:52 Labs: Abnormal Lab Results - Last 24 Hours (Table) 07/24/18 07/24/18 Range/Units 07:52 07:52 WBC 12.2 H (3.8-10.6) k/uL Hgb 11.2 L (11.4-16.0) gm/dL MCHC 30.9 L (31.0-37.0) g/dL Neutrophils # 10.6 H (1.3-7.7) k/uL Lymphocytes # 0.9 L (1.0-4.8) k/uL Chloride 108 H (98-107) mmol/L Glucose 123 H (74-99) mg/dL Calcium 8.3 L (8.4-10.2) mg/dL Total Protein 5.6 L (6.3-8.2) g/dL Albumin 2.7 L (3.5-5.0) g/dL Assessment and Plan Assessment: Laparoscopic converted to open cholecystectomy due to symptomatic cholelithiasis Mild leukocytosis likely due to postsurgical inflammation. No signs of infection noted. Recently treated for acute pyelonephritis Atrial fibrillation on anticoagulation with Coumadin GERD and hypertension Ulcerative colitis. Patient has ileostomy in place History of renal stones with lithotripsy History of renal mass on follow-up with neurology History of vertebral compression fractures due to fall DVT prophylaxis. Plan: Patient will be continued on gentle hydration. Pain management and bowel regimen. Encourage incentive spirometry and ambulation. Continue with home blood pressure medications and antibiotics in the form of Unasyn. Patient will be started back on Coumadin tomorrow. Monitor INR. Further recommendations based on the clinical course. We will continue to follow with you Thank you for your consult. Time with Patient: Greater than 30
[2018-07-25] MEDS: HYDROcodone/APAP 5-325MG 1 EACH TAB PO PRN ×4 (04:03→23:51)
[2018-07-25 08:01] LABS: Basophils % (A) 0 %; Eosinophils # (A) 0.1 k/uL (0-0.7); Eosinophils % (A) 1 %; HCT 39.2 % (34.0-46.0); HGB 12.1 gm/dL (11.4-16.0); Hypochromasia Slight; Lymphocytes # (A) 1.3 k/uL (1.0-4.8); Lymphocytes % (A) 14 %; MCHC 30.7 g/dL (31.0-37.0); MCV 91.2 fL (80.0-100.0); Mean Platelet Volume 6.5; Monocytes # (A) 0.4 k/uL (0-1.0); Monocytes % (A) 5 %; Neutrophils % (A) 78 %; Platelet Count 376 k/uL (150-450); RDW 14.6 % (11.5-15.5)
[2018-07-25 08:05] LABS: Prothrombin Time 10.4 sec (9.0-12.0)
[2018-07-25 08:10] LABS: ALT 46 U/L (9-52); AST 33 U/L (14-36); Alkaline Phosphatase 82 U/L (38-126); Anion Gap 9 mmol/L; Blood Urea Nitrogen 10 mg/dL (7-17); Calcium 8.5 mg/dL (8.4-10.2); Carbon Dioxide 29 mmol/L (22-30); Chloride 106 mmol/L (98-107); Glucose 99 mg/dL (74-99); Potassium 3.5 mmol/L (3.5-5.1); Sodium 144 mmol/L (137-145); Total Bilirubin 0.5 mg/dL (0.2-1.3); Total Protein 6.1 g/dL (6.3-8.2)
[2018-07-25] MEDS: AMPICILLIN-SULBACTAM 3 GM in SODIUM CHLORIDE 0.9% 100 ML IVPB SCH ×3 (08:21→23:50)
[2018-07-25] MEDS: HYDROmorphone 0.5 MG/0.5 ML SYRINGE IVP PRN ×3 (08:21→20:19)
[2018-07-25] MEDS: METOPROLOL TARTRATE 50 MG TAB PO SCH ×2 (08:22→20:17)
[2018-07-25] MEDS: ALLOPURINOL 300 MG TAB PO SCH (08:22)
[2018-07-25] MEDS: MAGNESIUM OXIDE 400 MG TAB PO SCH (08:22)
[2018-07-25] MEDS: amLODIPine 10 MG TAB PO SCH (08:22)
[2018-07-25] MEDS: PANTOPRAZOLE 40 MG/10 ML VIAL IV SCH (08:23)
[2018-07-25] MEDS: MULTIVITAMINS, THERA 1 EACH TAB PO SCH (08:23)
[2018-07-25] MEDS: HEPARIN SODIUM,PORCINE 5,000 UNIT/ML 1 ML VIAL SQ SCH ×3 (08:23→23:50)
[2018-07-25] MEDS: FERROUS SULFATE 325 MG TAB PO SCH (08:23)
[2018-07-25] MEDS: ONDANSETRON 4 MG/2 ML VIAL IVP PRN (11:51)
--- NOTE | 2018-07-25 14:36 | P.PN ---
Subjective Progress Note Date: 07/25/18 Patient is doing very well. No complaints. Tolerating diet. Pain well controlled. Objective - Vital Signs Vital signs: Vital Signs Temp 98.8 F 07/25/18 07:00 Pulse 102 H 07/25/18 08:00 Resp 16 07/25/18 07:00 BP 124/78 07/25/18 07:00 Pulse Ox 93 L 07/25/18 07:00 Intake & Output 07/24/18 07/25/18 07/25/18 18:59 06:59 18:59 Intake Total 840 Output Total 10 Balance -10 840 Intake: Intake, IV Titration 500 Amount Lactated Ringers 1,000 ml 500 @ 50 mls/hr IV .Q20H [facility] Rx#:[id number] Oral 340 Output: Drainage 10 Right Abdomen 10 Other: # Voids 1 2 1 - Constitutional General appearance: Present: cooperative - Respiratory Details: nonlabored - Gastrointestinal Gastrointestinal Comment(s): S/ND expected TTP. NINI serosang - Labs CBC & Chem 7: 07/25/18 07:22 07/25/18 07:22 Labs: Abnormal Lab Results - Last 24 Hours (Table) 07/25/18 07/25/18 Range/Units 07:22 07:22 MCHC 30.7 L (31.0-37.0) g/dL Total Protein 6.1 L (6.3-8.2) g/dL Albumin 3.0 L (3.5-5.0) g/dL Assessment and Plan Assessment: POD#2 lap converted to open roland Plan: Patient doing well, continue diet as tolerated.
[2018-07-25] MEDS ORDERED: WARFARIN 5 MG TAB PO ONE (18:00)
[2018-07-25] MEDS: LACTATED RINGERS 1,000 ML IV SCH (20:08)
[2018-07-26] MEDS: HYDROcodone/APAP 5-325MG 1 EACH TAB PO PRN ×3 (06:22→20:56)
[2018-07-26 07:39] LABS: Basophils % (A) 0 %; Eosinophils # (A) 0.2 k/uL (0-0.7); Eosinophils % (A) 3 %; HCT 37.5 % (34.0-46.0); Hypochromasia Slight; Lymphocytes # (A) 1.3 k/uL (1.0-4.8); Lymphocytes % (A) 19 %; MCHC 31.9 g/dL (31.0-37.0); Mean Platelet Volume 6.5; Monocytes # (A) 0.3 k/uL (0-1.0); Monocytes % (A) 5 %; Neutrophils # (A) 4.8 k/uL (1.3-7.7); Neutrophils % (A) 71 %; Platelet Count 369 k/uL (150-450); RBC 4.12 m/uL (3.80-5.40); RDW 14.7 % (11.5-15.5); WBC 6.7 k/uL (3.8-10.6)
[2018-07-26 07:53] LABS: Prothrombin Time 10.9 sec (9.0-12.0)
[2018-07-26 08:02] LABS: ALT 49 U/L (9-52); AST 34 U/L (14-36); Alkaline Phosphatase 93 U/L (38-126); Anion Gap 6 mmol/L; Blood Urea Nitrogen 8 mg/dL (7-17); Calcium 8.6 mg/dL (8.4-10.2); Carbon Dioxide 34 mmol/L (22-30); Chloride 104 mmol/L (98-107); Glucose 104 mg/dL (74-99); Potassium 3.5 mmol/L (3.5-5.1); Sodium 144 mmol/L (137-145); Total Bilirubin 0.4 mg/dL (0.2-1.3)
[2018-07-26] MEDS: FERROUS SULFATE 325 MG TAB PO SCH (08:56)
[2018-07-26] MEDS: amLODIPine 10 MG TAB PO SCH (08:56)
[2018-07-26] MEDS: HYDROmorphone 0.5 MG/0.5 ML SYRINGE IVP PRN ×3 (08:56→23:11)
[2018-07-26] MEDS: HEPARIN SODIUM,PORCINE 5,000 UNIT/ML 1 ML VIAL SQ SCH ×3 (08:56→23:10)
[2018-07-26] MEDS: PANTOPRAZOLE 40 MG TABLET PO SCH (08:57)
[2018-07-26] MEDS: METOPROLOL TARTRATE 50 MG TAB PO SCH ×2 (08:57→20:56)
[2018-07-26] MEDS: MAGNESIUM OXIDE 400 MG TAB PO SCH (08:57)
[2018-07-26] MEDS: MULTIVITAMINS, THERA 1 EACH TAB PO SCH (08:57)
[2018-07-26] MEDS: ALLOPURINOL 300 MG TAB PO SCH (08:57)
[2018-07-26] MEDS: ONDANSETRON 4 MG/2 ML VIAL IVP PRN ×3 (09:01→23:10)
[2018-07-26] MEDS: AMPICILLIN-SULBACTAM 3 GM in SODIUM CHLORIDE 0.9% 100 ML IVPB SCH ×3 (11:06→23:10)
[2018-07-26 12:12] VITALS: BMI 28.3
--- NOTE | 2018-07-26 14:03 | P.PN ---
Subjective Progress Note Date: 07/26/18 Patient is doing very well. No complaints. Tolerating diet. Pain well controlled. Objective - Vital Signs Vital signs: Vital Signs Temp 98.4 F 07/26/18 07:00 Pulse 94 07/26/18 07:00 Resp 16 07/26/18 07:00 BP 142/73 07/26/18 07:00 Pulse Ox 92 L 07/26/18 07:00 Intake & Output 07/25/18 07/26/18 07/26/18 18:59 06:59 18:59 Intake Total 300 296 Output Total 20 Balance 280 296 Weight 84.368 kg Intake: Intake, IV Titration 300 Amount Lactated Ringers 1,000 ml 300 @ 50 mls/hr IV .Q20H JO Rx#:[id number] Oral 296 Output: Drainage 20 Right Abdomen 20 Other: Voiding Method Toilet # Voids 2 1 - Constitutional General appearance: Present: cooperative - Respiratory Details: nonlabored - Cardiovascular Rhythm: regular - Gastrointestinal Gastrointestinal Comment(s): S/NT/ND incisions CDI. NINI serosang - Psychiatric Psychiatric: Present: A&O x's 3 - Labs CBC & Chem 7: 07/26/18 06:49 07/26/18 06:49 Labs: Abnormal Lab Results - Last 24 Hours (Table) 07/26/18 Range/Units 06:49 Carbon Dioxide 34 H (22-30) mmol/L Glucose 104 H (74-99) mg/dL Total Protein 6.0 L (6.3-8.2) g/dL Albumin 3.0 L (3.5-5.0) g/dL Assessment and Plan Assessment: POD#3 lap converted to open roland Plan: Patient doing well, continue diet as tolerated.
[2018-07-26] MEDS: LACTATED RINGERS 1,000 ML IV SCH (17:05)
[2018-07-26] MEDS ORDERED: WARFARIN 5 MG TAB PO ONE (18:00)
--- NOTE | 2018-07-26 21:56 | PN ---
PROGRESS NOTE DATE OF SERVICE: July 25, 2018. PRESENTING COMPLAINT: Abdominal pain. INTERVAL HISTORY: Patient was seen by me yesterday. Status post cholecystectomy. Abdominal pain is better. Did tolerate some diet. Sitting up. Did have a small amount of stool in the ileostomy bag. Did get up to the bathroom. REVIEW OF SYSTEMS: Done for constitutional, cardiovascular, GI, pulmonary; relevant findings as above. CURRENT MEDICATIONS: Reviewed. PHYSICAL EXAMINATION: VITAL SIGNS: Temperature 98.4, pulse 107, respirations 16, blood pressure 129/79, pulse ox 92% on room air. GENERAL APPEARANCE: Sitting up, awake, not in distress. EYES: Pupils are equal. Conjunctivae normal. NECK: JVD not raised. Mass not palpable. RESPIRATORY: Effort normal. LUNGS are clear. CARDIOVASCULAR: First and second sounds normal. No edema. ABDOMEN: Soft. Minimal tenderness. Ileostomy bag in place. PSYCHIATRY: Alert and oriented x3. Mood and affect normal. INVESTIGATIONS: White count 9, hemoglobin 12.1, potassium 3.5. BUN and creatinine is normal. ASSESSMENT: 1. Status post cholecystectomy for cholelithiasis. 2. Gastroesophageal reflux disease. 3. Essential hypertension. 4. History of ulcerative colitis that results in ileostomy. 5. Chronic vertebral compression fractures. 6. Kidney tumor, being followed by Dr. Page. PLAN: Continue medication and treatment plan. Diet has been advanced per surgery. The patient encouraged to be out of bed. Follow. MMODL / YUNIELN: [id number] /
--- NOTE | 2018-07-26 21:56 | PN ---
PROGRESS NOTE DATE OF SERVICE: July 26, 2018. PRESENTING COMPLAINT: Abdominal pain. INTERVAL HISTORY: Patient is status post cholecystectomy. Doing much better, tolerating a diet, had more stool in the ileostomy bag. Abdominal pain much improved. No nausea, vomiting. Has been out of bed. Breathing is stable. REVIEW OF SYSTEMS: Done for constitutional, cardiovascular, GI, pulmonary; relevant findings as above. CURRENT MEDICATIONS: Reviewed that include IV Unasyn. PHYSICAL EXAMINATION: VITAL SIGNS: Temperature 98.3, pulse 104, respirations 16, blood pressure 120/79, pulse ox 93 percent on room air. LUNGS: Fair air entry. CARDIOVASCULAR: Heart sounds irregular. ABDOMEN: Soft, minimal tenderness. Ileostomy bag with stool in place. PSYCHIATRY: Alert and oriented x3. Mood and affect normal. INVESTIGATIONS: White count 6.7, hemoglobin 12.0, potassium 3.5. ASSESSMENT: 1. Open cholecystectomy for cholelithiasis. 2. Chronic ileostomy following ulcerative colitis surgery. 3. Persistent atrial fibrillation chronically on Coumadin. 4. Essential hypertension. 5. Gastroesophageal reflux disease. 6. Chronic compression vertebral fracture. PLAN: Patient's Coumadin has been resumed. INR is being followed. The patient is on IV Unasyn. Antibiotics to be determined by surgery. Otherwise, patient is doing well. INR to be closely followed. MMODL / IJN: [id number] /
[2018-07-27] MEDS: HYDROcodone/APAP 5-325MG 1 EACH TAB PO PRN ×2 (06:22→13:07)
[2018-07-27] MEDS: ONDANSETRON 4 MG/2 ML VIAL IVP PRN ×2 (06:24→13:06)
[2018-07-27] MEDS: HEPARIN SODIUM,PORCINE 5,000 UNIT/ML 1 ML VIAL SQ SCH (07:26)
[2018-07-27] MEDS: METOPROLOL TARTRATE 50 MG TAB PO SCH (07:27)
[2018-07-27] MEDS: MAGNESIUM OXIDE 400 MG TAB PO SCH (07:28)
[2018-07-27] MEDS: PANTOPRAZOLE 40 MG TABLET PO SCH (07:28)
[2018-07-27] MEDS: FERROUS SULFATE 325 MG TAB PO SCH (07:28)
[2018-07-27] MEDS: ALLOPURINOL 300 MG TAB PO SCH (07:29)
[2018-07-27] MEDS: MULTIVITAMINS, THERA 1 EACH TAB PO SCH (07:29)
[2018-07-27] MEDS: amLODIPine 10 MG TAB PO SCH (07:30)
[2018-07-27] MEDS: AMPICILLIN-SULBACTAM 3 GM in SODIUM CHLORIDE 0.9% 100 ML IVPB SCH (07:30)
[2018-07-27 07:47] VITALS: BP 128/76; PULSE 97; RESP 14; TEMP 98.9
[2018-07-27 09:37] LABS: Basophils % (A) 0 %; Eosinophils # (A) 0.1 k/uL (0-0.7); Eosinophils % (A) 2 %; HCT 37.7 % (34.0-46.0); HGB 11.8 gm/dL (11.4-16.0); Hypochromasia Slight; Lymphocytes # (A) 0.9 k/uL (1.0-4.8); Lymphocytes % (A) 12 %; MCH 28.4 pg (25.0-35.0); MCHC 31.2 g/dL (31.0-37.0); MCV 90.9 fL (80.0-100.0); Mean Platelet Volume 6.5; Monocytes # (A) 0.3 k/uL (0-1.0); Monocytes % (A) 5 %; Neutrophils # (A) 5.9 k/uL (1.3-7.7); Neutrophils % (A) 80 %; Platelet Count 364 k/uL (150-450); RBC 4.15 m/uL (3.80-5.40); RDW 14.6 % (11.5-15.5); WBC 7.4 k/uL (3.8-10.6)
[2018-07-27 09:49] LABS: ALT 57 U/L (9-52); AST 49 U/L (14-36); Alkaline Phosphatase 83 U/L (38-126); Anion Gap 8 mmol/L; Blood Urea Nitrogen 7 mg/dL (7-17); Calcium 8.3 mg/dL (8.4-10.2); Carbon Dioxide 32 mmol/L (22-30); Chloride 100 mmol/L (98-107); Glucose 136 mg/dL (74-99); Potassium 3.5 mmol/L (3.5-5.1); Sodium 140 mmol/L (137-145); Total Bilirubin 0.5 mg/dL (0.2-1.3); Total Protein 6.1 g/dL (6.3-8.2)
[2018-07-27 10:59] LABS: INR 1.3 (<1.2); Prothrombin Time 13.6 sec (9.0-12.0)
--- NOTE | 2018-07-27 11:19 | P.DS ---
Providers Date of admission: 07/23/18 17:02 Attending physician: Isacc Prajapati DO Consults: 07/23/18 16:55 Consult Physician Routine Consulting Provider: Gerard Schmitt Consult Reason/Comments: Med mgmt Do you want consulting provider notified?: Yes Primary care physician: Oskar Sánchez - Discharge Diagnosis(es) (1) RUQ abdominal pain Current Visit: No Status: Acute Hospital Course: 73-year-old female presented to the hospital for an elective cholecystectomy. Patient did undergo an open cholecystectomy due to significant amount of adhesions from previous surgery and ostomy. Postoperatively, the patient was sent to the medical surgical unit. Her activity level increased and she continued to progress well. Diet was advanced. Patient was restarted on Coumadin. NINI drain with minimal serosanguineous output. Laboratory values were monitored. Patient is surgically stable for discharge. Procedures: Open cholecystectomy Patient Condition at Discharge: Fair Plan - Discharge Summary Discharge Rx Participant: Yes New Discharge Prescriptions: New HYDROcodone/APAP 5-325MG [Sizerock 5-325] 1 each PO Q6HR PRN 3 Days #15 tab PRN Reason: Mild Pain Ondansetron Odt [Zofran Odt] 4 mg PO Q8HR PRN #21 tab PRN Reason: Nausea Continue amLODIPine [Norvasc] 10 mg PO DAILY Omeprazole 20 mg PO BID Metoprolol Tartrate [Lopressor] 100 mg PO BID Allopurinol [Zyloprim] 300 mg PO DAILY traMADol HCL [Ultram] 50 mg PO Q6H PRN PRN Reason: Pain Warfarin [Coumadin] 1.25 mg PO TUTH Warfarin [Coumadin] 2.5 mg PO SUMOWEFRSA Magnesium Gluconate [Magonate] 250 mg PO DAILY Nitroglycerin Sl Tabs [Nitrostat] 0.4 mg SUBLINGUAL Q5M PRN #25 tab PRN Reason: Angina Acetaminophen Tab [Tylenol] 1,000 mg PO Q6HR PRN PRN Reason: Pain Ferrous Sulfate [Iron (65 MG Elemental)] 325 mg PO DAILY Multivitamins, Thera [Multivitamin (formulary)] 1 tab PO DAILY Discontinued Ondansetron [Zofran] 4 mg PO Q8H PRN PRN Reason: Nausea Discharge Medication List Allopurinol [Zyloprim] 300 mg PO DAILY 01/02/16 [History] Metoprolol Tartrate [Lopressor] 100 mg PO BID 01/02/16 [History] Omeprazole 20 mg PO BID 01/02/16 [History] amLODIPine [Norvasc] 10 mg PO DAILY 01/02/16 [History] Warfarin [Coumadin] 1.25 mg PO TUTH 07/04/16 [History] Warfarin [Coumadin] 2.5 mg PO SUMOWEFRSA 07/04/16 [History] traMADol HCL [Ultram] 50 mg PO Q6H PRN 07/04/16 [History] Magnesium Gluconate [Magonate] 250 mg PO DAILY 10/24/17 [History] Nitroglycerin Sl Tabs [Nitrostat] 0.4 mg SUBLINGUAL Q5M PRN #25 tab 10/25/17 [Rx] Acetaminophen Tab [Tylenol] 1,000 mg PO Q6HR PRN 07/03/18 [History] Ferrous Sulfate [Iron (65 MG Elemental)] 325 mg PO DAILY 07/03/18 [History] Multivitamins, Thera [Multivitamin (formulary)] 1 tab PO DAILY 07/22/18 [History] HYDROcodone/APAP 5-325MG [Sizerock 5-325] 1 each PO Q6HR PRN 3 Days #15 tab 07/27/18 [Rx] Ondansetron Odt [Zofran Odt] 4 mg PO Q8HR PRN #21 tab 07/27/18 [Rx] Follow up Appointment(s)/Referral(s): Oskar Sánchez DO [Primary Care Provider] - 3 Days Isacc Prajapati DO [Doctor of Osteopathic Medicine] - 10 Days Activity/Diet/Wound Care/Special Instructions: Continue soft foods as tolerated Continue to increase activity daily Okay to shower, do not scrub soap on incision sites Return to hospital if any acute changes or any significant increase in pain Discharge Disposition: HOME SELF-CARE
[2018-07-27] MEDS: LACTATED RINGERS 1,000 ML IV SCH (12:34)
[2018-07-27] MEDS ORDERED: WARFARIN 5 MG TAB PO ONE (18:00)
--- NOTE | 2018-07-28 07:18 | PN ---
PROGRESS NOTE DATE OF SERVICE: 07/27/2018 PRESENTING COMPLAINT: Abdominal pain. INTERVAL HISTORY: The patient is seen this morning. Doing overall better. Tolerating a diet. Ileostomy bag is working. Has been out of bed. Overall feeling better. REVIEW OF SYSTEMS: Done for constitutional, cardiovascular, GI, pulmonary; relevant findings as above. CURRENT MEDICATIONS: Current medications are reviewed. PHYSICAL EXAMINATION: On examination, temperature 98.9, pulse 97, respiration 14, blood pressure 128/76, pulse ox 93%. EYES: Pupils equal. Conjunctivae normal. NECK: JVD not raised. Mass not palpable. RESPIRATORY: Effort normal. LUNGS: Clear. CARDIOVASCULAR: First and second sounds normal. No edema. ABDOMEN: Soft, nontender. Ileostomy bag with stool in place. PSYCHIATRY: Alert and oriented x3. Mood and affect normal. INVESTIGATIONS: White count 7.4, hemoglobin 11.8. INR 1.3. ASSESSMENT: 1. Open cholecystectomy for cholelithiasis. 2. Chronic ileostomy following ulcerative colitis surgery. 3. Persistent atrial fibrillation chronically on Coumadin. 4. Essential hypertension. 5. Gastroesophageal reflux disease. 6. Chronic compression vertebral fracture. PLAN: Patient is medically stable. Should get INR checked as outpatient. Otherwise doing well. Care was discussed the patient. The patient advised to advance diet slowly. Care was discussed with Dr. Prajapati. MMGIORGIOL / IJN: [id number] /
[2018-07-28] MEDS ORDERED: WARFARIN 1.25 MG TAB PO SCH (18:00)
[2018-07-29] MEDS ORDERED: WARFARIN 2.5 MG TAB PO SCH (18:00)
== END 2018-07-27 14:15 | disposition home or self-care (01) | DRG 415 ==
LOC: OR 12:54 → 4SSUR 17:02
PROVIDERS: ADMIT Surgery; ATTEND Surgery
DX: K80.20 Calculus of gallbladder without cholecystitis without obstruction (principal); M48.50XA Collapsed vertebra, not elsewhere classified, site unspecified, initial encounter for fracture; I48.2 Chronic atrial fibrillation; K21.9 Gastro-esophageal reflux disease without esophagitis; K66.0 Peritoneal adhesions (postprocedural) (postinfection); M10.9 Gout, unspecified; I10 Essential (primary) hypertension; N28.89 Other specified disorders of kidney and ureter; Z93.2 Ileostomy status; Z87.440 Personal history of urinary (tract) infections; Z87.442 Personal history of urinary calculi; Z98.891 History of uterine scar from previous surgery; Z90.89 Acquired absence of other organs; Z98.42 Cataract extraction status, left eye; Z98.41 Cataract extraction status, right eye; Z98.890 Other specified postprocedural states; Z87.19 Personal history of other diseases of the digestive system; Z86.19 Personal history of other infectious and parasitic diseases; Z80.1 Family history of malignant neoplasm of trachea, bronchus and lung; Z80.7 Family history of other malignant neoplasms of lymphoid, hematopoietic and related tissues; Z79.899 Other long term (current) drug therapy; Z79.01 Long term (current) use of anticoagulants; Z53.31 Laparoscopic surgical procedure converted to open procedure; Z82.49 Family history of ischemic heart disease and other diseases of the circulatory system; Z84.1 Family history of disorders of kidney and ureter
CPT/HCPCS: 74183; 80053; 85025; 85610; 88304

== ENCOUNTER → 2019-02-04 | Outpatient (CLI) | payer MEDICARE, BC ==
[2019-02-04 08:12] LABS: African American GFR (CKD) >90 (>60 ml/min/1.73 sqM); Blood Urea Nitrogen 14 mg/dL (7-17)
--- NOTE | 2019-02-04 10:38 | CT ---
EXAMINATION TYPE: CT abdomen wo/w con DATE OF EXAM: 02/04/2019 COMPARISON: 07/21/2018 and 01/23/2018 HISTORY: 73-year-old female Right renal mass TECHNIQUE: Contiguous axial scanning of the abdomen before and after administration of 100 ml Isovue 300 IV contrast. Delayed images through the kidneys and coronal/sagittal reconstructions performed. CT DLP: 1548.00 mGycm Automated exposure control for dose reduction was used. FINDINGS: Heart normal size without pericardial effusion. Tiny hiatal hernia. Some strandy dependent atelectasi s in the lung bases without pleural effusion. Low-density of the liver compatible with underlying hepatic steatosis. A couple of tiny subcentimeter hypodensities suggestive of benign cysts. Portal venous system is patent. No biliary ductal dilatati on. Gallbladder not visualized, probably surgically absent. Left adrenal gland, spleen, and pancreas within normal limits. Redemonstrated low-density nodule within the right adrenal gland measuring 2.5 cm, either a myelolipo ma or lipid rich adrenal adenoma. There is a diverticulum at the junction of the second and third portions of the duodenum projecting i nto the pancreatic head region. No dilated small bowel, free fluid, or free air. Right abdominal ostomy with a parastomal hernia measuring 9.7 cm wide versus 8.9 cm wide on 07/03/2018 containing some opacified, nonobstructed colonic loops and mesenteric fat. With attention to the right kidney, there has been significant interval decrease in size of the infla med and complex anterior right kidney cyst, previously measuring 6.9 cm and currently measuring only 2.0 cm. Punctate internal calcification and some thickened periphery remains and should be reassessed at follow-up. A couple high density cortical lesions anteriorly measuring up to 1.7 cm and then also along the ante rior mid to lower pole measuring 2.0 cm are suggestive of hemorrhagic cysts. Multiple benign simple cysts are present in the right kidney, largest measuring 3.7 cm. However, there is a heterogeneously enhancing cortical lesion lower pole right kidney measuring 2.2 c m, reference axial image 50 and 51 and coronal image 65. On patient's prior MRI, this is estimated to measure 1.7 cm. On 01/23/2018, is estimated to measure 1.2 cm. On the prior MRI, it appears predomina ntly cystic. In regards to the left kidney, multiple cysts are present, largest measuring 3.9 cm. Many are too sma ll for accurate CT characterization and likely represent cysts. Symmetric uptake and excretion of contrast from both kidneys. A few prominent mesenteric lymph nodes measure up to 5 mm. Bones: Severe endplate deformity of L2 and Schmorl's nodes of T12 and L1. Grade 1 anterolisthesis L4- L5. Findings similar back to at least 01/23/2018. IMPRESSION: 1. NUMEROUS BILATERAL RENAL CYSTS MEASURING UP TO 3.9 CM. APPROXIMATELY 3 ON THE RIGHT ARE HEMORRHAGI C CYSTS MEASURING UP TO 2.0 CM. 2. THE PREVIOUSLY INFLAMED DOMINANT ANTERIOR RIGHT RENAL CYST SHOWS SIGNIFICANT DECREASE IN SIZE CURR ENTLY MEASURING 2.0 CM (VERSUS 6.9 CM, PREVIOUSLY). SOME RESIDUAL COMPLEXITY REMAINS WITH PUNCTATE CA LCIFICATION AND MILDLY THICKENED RIM. CONTINUED FOLLOW-UP RECOMMENDED. 3. SUSPICIOUS CORTICAL LESION LOWER POLE RIGHT KIDNEY SEEMS TO HAVE HETEROGENEOUS ENHANCEMENT. CURREN TLY MEASURING 2.2 CM VERSUS 1.7 CM ON 07/21/2018 AND 1.2 CM ON 01/23/2018. AN EARLY RCC IS NOT EXCLUDED AT THIS TIME. APPROPRIATE FOLLOW-UP AND MANAGEMENT RECOMMENDED. 4. RIGHT ABDOMINAL OSTOMY WITH REDEMONSTRATED COLON CONTAINING PARASTOMAL HERNIA. 5. HEPATIC STEATOSIS AND EITHER A 2.5 CM BENIGN LIPID RICH ADRENAL ADENOMA OR MYELOLIPOMA OF THE RIGH T ADRENAL GLAND.
== END | disposition home or self-care (01) ==
LOC: RADCTMAIN 07:25
PROVIDERS: ATTEND Urology
DX: N28.1 Cyst of kidney, acquired (principal); K43.5 Parastomal hernia without obstruction or gangrene; K76.0 Fatty (change of) liver, not elsewhere classified; Z93.8 Other artificial opening status
CPT/HCPCS: 82565; 84520; 74170; 36415; Q9967

== ENCOUNTER 2020-02-18 08:41 | Emergency (ER) | payer MEDICARE, BC ==
[2020-02-18 09:53] LABS: INR 3.4 (<1.2); Prothrombin Time 33.3 sec (9.0-12.0)
--- NOTE | 2020-02-18 09:55 | ED ---
General Adult HPI <Eduar Gabriel - Last Filed: 02/18/20 10:30> - General Source: patient, RN notes reviewed, old records reviewed Mode of arrival: wheelchair Limitations: no limitations <Natacha Adairily - Last Filed: 02/18/20 10:37> - General Chief complaint: Head Injury Stated complaint: Fall, blood thinner, head injury Time Seen by Provider: 02/18/20 08:53 - History of Present Illness Initial comments: 74-year-old female presents emergency department today for evaluation for complaints of trip and fall yesterday. She reports that she tripped on her granddaughters toys and fell striking her left eye on the edge of a cabinet. She denies loss of consciousness but did feel dizzy afterwards. She is on Coumadin with a history of A. fib. (Ai Adair) - Related Data Home Medications Medication Instructions Recorded Confirmed Metoprolol Tartrate [Lopressor] 100 mg PO BID 01/02/16 02/18/20 Omeprazole 20 mg PO BID 01/02/16 02/18/20 allopurinoL [Zyloprim] 300 mg PO DAILY 01/02/16 02/18/20 amLODIPine [Norvasc] 10 mg PO DAILY 01/02/16 02/18/20 Warfarin [Coumadin] 2.5 mg PO SUTUTHFRSA 07/04/16 02/18/20 Warfarin [Coumadin] 3.75 mg PO MOWE 07/04/16 02/18/20 traMADol HCL [Ultram] 50 mg PO Q6H PRN 07/04/16 02/18/20 Acetaminophen Tab [Tylenol] 1,000 mg PO Q6HR PRN 07/03/18 02/18/20 Ferrous Sulfate [Iron (65 MG 325 mg PO DAILY 07/03/18 02/18/20 Elemental)] Multivitamins, Thera [Multivitamin 1 tab PO BID 07/22/18 02/18/20 (formulary)] Ergocalciferol (Vitamin D2) 50,000 unit PO Q14D 02/18/20 02/18/20 [Drisdol] Magnesium Oxide [Peng] 500 mg PO DAILY 02/18/20 02/18/20 Previous Rx's Medication Instructions Recorded Nitroglycerin Sl Tabs [Nitrostat] 0.4 mg SUBLINGUAL Q5M PRN #25 tab 08/04/18 Ondansetron Odt [Zofran Odt] 4 mg PO Q8HR PRN #21 tab 07/27/18 Allergies Allergy/AdvReac Type Severity Reaction Status Date / Time No Known Allergies Allergy Verified 02/18/20 09:18 Review of Systems ROS Other: All systems not noted in ROS Statement are negative. <Eduar Gabriel - Last Filed: 02/18/20 10:30> ROS Other: All systems not noted in ROS Statement are negative. <Ai Adair - Last Filed: 02/18/20 10:37> ROS Statement: Those systems with pertinent positive or pertinent negative responses have been documented in the HPI. Past Medical History Past Medical History: Cancer Additional Past Medical History / Comment(s): Hx of Ulcerative Colitis(ileostomy) and gout, renal stone,uti, 2016 - vertebra/compression fx x1 compression fracture, rt kidney ca History of Any Multi-Drug Resistant Organisms: None Reported Past Surgical History: Section, Tonsillectomy Additional Past Surgical History / Comment(s): ileostomy, COLONOSCOPY, EGD, BILAT CATARACTS, lithrotripsy, x1 week ago she had laser on right eye, rt kidney urgery Past Anesthesia/Blood Transfusion Reactions: No Reported Reaction Additional Past Anesthesia/Blood Transfusion Reaction / Comment(s): Blood transfusion in past-no reaction Past Psychological History: No Psychological Hx Reported Smoking Status: Never smoker Past Alcohol Use History: None Reported Past Drug Use History: None Reported - Past Family History Mother Family Medical History: Cancer Additional Family Medical History / Comment(s): Lymphoma, melanoma, non-hodkins Father Family Medical History: Cancer Additional Family Medical History / Comment(s): Lung cancer and throat <Ai Adair - Last Filed: 02/18/20 10:37> General Exam Limitations: no limitations General appearance: alert, in no apparent distress Head exam: Present: atraumatic, normocephalic, normal inspection Eye exam: Present: PERRL, EOMI, periorbital tenderness, other (contusion R eye ). Absent: normal appearance, scleral icterus, conjunctival injection, periorbital swelling ENT exam: Present: normal exam, normal oropharynx, mucous membranes moist Neck exam: Present: normal inspection. Absent: tenderness, meningismus, lymphadenopathy Respiratory exam: Present: normal lung sounds bilaterally. Absent: respiratory distress, wheezes, rales, rhonchi, stridor Cardiovascular Exam: Present: regular rate, normal rhythm, normal heart sounds. Absent: systolic murmur, diastolic murmur, rubs, gallop, clicks GI/Abdominal exam: Present: soft, normal bowel sounds. Absent: distended, tenderness, guarding, rebound, rigid Neurological exam: Present: alert, oriented X3, CN II-XII intact, normal gait Psychiatric exam: Present: normal affect, normal mood Skin exam: Present: warm, dry, intact, normal color. Absent: rash <Ai Adair - Last Filed: 02/18/20 10:37> - General Exam Comments Initial Comments: Pleasant 74-year-old female. No distress. (Ai Adair) Course <Eduar Gabriel - Last Filed: 02/18/20 10:30> Vital Signs 02/18/20 08:50 Temperature 98.8 F Pulse Rate 104 H Respiratory 18 Rate Blood Pressure 156/84 O2 Sat by Pulse 97 Oximetry - Reevaluation(s) Reevaluation #1: 02/18/20 10:30 PA supervision: I did personally evaluate this patient's case she did present after falling yesterday. She had pain to her left orbital area. CAT scan negative for evidence of acute findings. Lab work reviewed. Coumadin level within therapeutic range. Visual be discharged (Eduar Gabriel) Medical Decision Making - Radiology Data Radiology results: report reviewed <Ai Adair - Last Filed: 02/18/20 10:37> - Medical Decision Making 74-year-old female presents the ER today for evaluation with complaints of trip and fall. She reports she fell yesterday hit her right eye. At this time she had no loss of consciousness. She did complain of some dizziness when she initially fell. At this time patient's INR was 3.4 within normal limit. I did perform computed tomography scan of the brain abd c spine is negative for acute process. CT facial bones show no evidence of fracture. She has normal eye movements without any signs of entrapment. Discussed code compresses over the areas of swelling and redness. Discussed return parameters (Ai Adair) - Lab Data Lab Results 02/18/20 Range/Units 09:20 PT 33.3 H (9.0-12.0) sec INR 3.4 H (<1.2) - Radiology Data Age-related atrophy and chronic small vessel skewing changes without acute intracranial process seen at this time. No evidence of fracture subluxation of cervical spine. CT facial bones show no evidence for displaced or depressed facial bone fracture. (Ai Adair) Disposition <Eduar Gabriel - Last Filed: 02/18/20 10:30> Is patient prescribed a controlled substance at d/c from ED?: No Time of Disposition: 10:37 <Ai Adair - Last Filed: 02/18/20 10:37> Clinical Impression: Fall, Eye contusion Disposition: HOME SELF-CARE Condition: Good Instructions (If sedation given, give patient instructions): Concussion (ED), Black Eye (ED) Additional Instructions: Patient should apply cool compresses and ice over the area of swelling of the eye. Taking Tylenol or Motrin for pain. Return to the emergency department if any alarming signs or symptoms occur. Referrals: Oskar Sánchez DO [Primary Care Provider] - 1-2 days
--- NOTE | 2020-02-18 10:18 | CT ---
EXAMINATION TYPE: CT brain rea de luna DATE OF EXAM: 02/18/2020 COMPARISON: None HISTORY: Dizziness with fall and injury. Left orbital bruising. CT DLP: 1138.[address] of the brain was performed. The ventricles, basal cisterns and sulci overlying the cerebral convexities demonstrate mild enlargem ent. There is no evidence for intracranial hemorrhage or sulcal effacement. There is decreased attenuatio n about the periventricular white matter and deep white matter of both cerebral hemispheres, compatib le with chronic small vessel ischemia. No mass effects are seen. If symptoms persist consider MRI. Osseous calvarium is intact. IMPRESSION: 1. Age related atrophic and chronic small vessel ischemic change without acute intracranial process seen at this time. CT Cervical Spine: Unenhanced CT of the cervical spine was performed with bone and soft tissue window settings submitted . Coronal and sagittal reconstruction is obtained. There is normal alignment and prevertebral soft tissues. No evidence for acute cervical fracture . Scattered degenerative disc disease and spondylosis. Biapical scarring. IMPRESSION: 1. No evidence for acute fracture or subluxation of the cervical spine.
--- NOTE | 2020-02-18 10:25 | CT ---
EXAMINATION TYPE: CT facial bones wo con DATE OF EXAM: 02/18/2020 COMPARISON: None HISTORY: Dizziness with fall and injury. Left orbital bruising. CT DLP: 1138.[address] of the facial bones was performed in the axial and coronal planes. Bone and soft tissu e window settings are submitted. Mild left periorbital soft tissue swelling. I do not see evidence for displaced facial bone fracture or depressed facial bone fracture. The globes are intact. Mucous retention cyst left maxillary sinus. IMPRESSION: 1. No evidence for depressed or displaced facial bone fracture.
[2020-02-18 11:00] VITALS: BP 140/90; PULSE 86; RESP 16; TEMP 98.6
== END 2020-02-18 11:00 | disposition home or self-care (01) ==
LOC: EC 08:41
DX: S05.12XA Contusion of eyeball and orbital tissues, left eye, initial encounter (principal); I48.91 Unspecified atrial fibrillation; Z79.01 Long term (current) use of anticoagulants; Z79.899 Other long term (current) drug therapy; Z85.528 Personal history of other malignant neoplasm of kidney; W01.198A Fall on same level from slipping, tripping and stumbling with subsequent striking against other object, initial encounter
CPT/HCPCS: 36415; 70450; 70486; 72125; 85610; 99284

== ENCOUNTER → 2020-04-04 | Outpatient (CLI) | payer MEDICARE, BC ==
--- NOTE | 2020-04-04 10:25 | CT ---
EXAMINATION TYPE: CT abdomen wo/w con DATE OF EXAM: 04/04/2020 COMPARISON: 02/04/2019 HISTORY: renal cell carcinoma of Rt kidney CT DLP: 1876 mGycm Automated exposure control for dose reduction was used. TECHNIQUE: Helical acquisition of images was performed from the lung bases through the top of iliac crest to include entire abdomen. CONTRAST: Performed without Oral Contrast and without and with IV Contrast, patient injected with 100 mL of Iso colin 300. FINDINGS: LUNG BASES: Bibasilar posterior subsegmental consolidation most typical of atelectasis. LIVER/GB: Liver is low in attenuation with a tiny hypodensity measuring 5 mm in the right lobe which is indeterminate but likely related to simple cyst. Correlate for hepatic steatosis.. PANCREAS: No significant abnormality is seen. SPLEEN: No significant abnormality is seen. ADRENALS: Extending off the lower margin of the adrenal gland on the right there is a 3 cm mixed atte nuation lesion most typical of a myelo lipoma. KIDNEYS: With attention to the right kidney, there is interval increase size of the complex anterior right kid miguel cyst, previously measuring 2.0 cm and currently measuring only 2.4 cm. Numerous other simple appe aring renal cysts are stable with evidence of cortical loss but no hydronephrosis. There is a lower p ole punctate nonobstructing 2 mm calculus. There is stable exophytic complex appearing lesion involving the lower pole the right kidney measurin g 1.6 cm on today's exam and previously measuring 1 cm. Measures approximately 32 Hounsfield units. T here is a small soft tissue nodule adjacent to the lateral margin of the psoas is new measuring 1 cm. Left kidney: There are numerous renal cortical simple cysts which appear to be stable. No hydronephro sis or nephrolithiasis. BOWEL: Right-sided ostomy is seen with parastomal hernia. No obstruction. LYMPH NODES: No significant abnormality is seen. OSSEOUS STRUCTURES: Hypertrophic and degenerative change of the spine.. Chronic appearing compressio n deformities superior endplate of L1 and L2. Multilevel facet arthropathy and hypertrophic changes. Multilevel foraminal encroachment and canal stenosis suspected. OTHER: Aorta of normal caliber. No free fluid or free air as visualized. IMPRESSION: 1. There are two lesions which do not meet the criteria of a simple cyst within the right . The lower pole anterior cortical lesion measures 2.4 cm on today's exam and previously measured 2 cm. On nonco ntrast images this appears to be uniformly hyperdense containing tiny calcification and most likely r epresents a hemorrhagic cyst. 2. Lower pole exophytic complex lesion extending off the inferior margin of the right kidney measures 2.2 cm and is stable from prior exam where it measured 2.2 cm. This lesion does not meet the criteri a of a simple cyst and is indeterminate. Additionally, there is a 1 cm nodule adjacent to the lateral margin of the psoas muscle noted on axial image 51 which is new from the prior exam. Area of develop ing adenopathy or implant in the differential diagnosis. 3. Additional multiple simple appearing bilateral renal cysts with evidence of renal cortical thinnin g on the right compatible with chronic medical renal disease. 4. Punctate 2 mm nonobstructing lower pole right renal calculus. 5. Stable right adrenal myelolipoma. 6. Hepatic steatosis with stable hepatic lesion statistically most likely on the basis of a hepatic c yst.
== END | disposition home or self-care (01) ==
LOC: RADCTMAIN 08:54
PROVIDERS: ATTEND Radiology Vascular & Interventional Radiology
DX: N28.89 Other specified disorders of kidney and ureter (principal); N28.1 Cyst of kidney, acquired; N20.0 Calculus of kidney; D17.79 Benign lipomatous neoplasm of other sites; K76.0 Fatty (change of) liver, not elsewhere classified; K76.89 Other specified diseases of liver; C64.1 Malignant neoplasm of right kidney, except renal pelvis
CPT/HCPCS: 82565; 84520; 74170; 36415; Q9967

== ENCOUNTER → 2020-05-26 | Outpatient (CLI) | payer MEDICARE, BC ==
--- NOTE | 2020-05-29 12:07 | MM ---
Reason for exam: screening (asymptomatic). Last mammogram was performed 1 year and 11 months ago. History: Patient is postmenopausal and history of other cancer. Benign US biopsy breast VAD LT of the left breast, January 24, 2015. Stereotactic core biopsy of the left breast, February 20, 2004. Benign cyst aspiration of the left breast, January 20, 2004. Core biopsy of the left breast. 2 excisional biopsies of the left breast. Took estrogen for 1 year beginning at age 55. Took progesterone for 1 year beginning at age 55. Physical Findings: A clinical breast exam by your physician is recommended on an annual basis and results should be correlated with mammographic findings. MG 3D Screening Mammo W/Cad Bilateral CC and MLO view(s) were taken. XCCL view(s) were taken of the right breast. Prior study comparison: June 22, 2018, bilateral MG 3d screening mammo w/cad. April 23, 2017, bilateral MG 3d screening mammo w/cad. The breast tissue is heterogeneously dense. This may lower the sensitivity of mammography. There are benign appearing round, vascular calcifications bilaterally. Previous mammotome biopsy in the left breast. There is no discrete abnormality. ASSESSMENT: Benign, BI-RAD 2 RECOMMENDATION: Routine screening mammogram of both breasts in 1 year.
== END ==
LOC: RADMAMWWP 07:59
PROVIDERS: ATTEND Family Medicine
DX: Z12.31 Encounter for screening mammogram for malignant neoplasm of breast (principal); Z78.0 Asymptomatic menopausal state
CPT/HCPCS: 77063; 77067

== ENCOUNTER → 2020-10-02 | Outpatient (CLI) | payer MEDICARE, BC ==
[2020-10-02 14:47] LABS: African American GFR (CKD) 84.8 (60.0-200.0); Non-African American GFR(CKD) 73.1 (60.0-200.0)
== END | disposition home or self-care (01) ==
LOC: LABWHC1 08:46
PROVIDERS: ATTEND Radiology Vascular & Interventional Radiology
DX: C64.1 Malignant neoplasm of right kidney, except renal pelvis (principal)
CPT/HCPCS: 36415; 82565; 84520

== ENCOUNTER → 2023-03-06 | Outpatient (CLI) | payer MEDICARE, OTHER ==
--- NOTE | 2023-03-07 17:29 | CA ---
Transthoracic Echo Report Name: Kylah Holbrook Age: 77 Gender: F : 1945 Exam Date: 03/06/2023 14:02 Exam Location: [facility] Ht (in): 68 Wt (lb): 193 Ordering Physician: Roberto Palacios MD Attending/Referring Phys: Suzanne PADILLA Anodizer Cheryl Oglesby, RDURBANO Procedure CPT: Indications: M79.89 EXTREMITY SWELLING Cardiac Hx: Technical Quality: Fair Contrast 1: Total Dose (mL): Contrast 2: Total Dose (mL): MEASUREMENTS (Male / Female) Normal Values 2D ECHO LV Diastolic Diameter PLAX 4.6 cm 4.2 - 5.9 / 3.9 - 5.3 cm LV Systolic Diameter PLAX 3.0 cm IVS Diastolic Thickness 1.0 cm 0.6 - 1.0 / 0.6 - 0.9 cm LVPW Diastolic Thickness 0.8 cm 0.6 - 1.0 / 0.6 - 0.9 cm LV Relative Wall Thickness 0.4 RV Internal Dim ED PLAX 2.9 cm LA Systolic Diameter LX 3.1 cm 3.0 - 4.0 / 2.7 - 3.8 cm LV Diastolic Volume MOD BP 48.6 cm??? 67 - 155 / 56 - 104 cm??? LV Systolic Volume MOD BP 22.6 cm??? 22 - 58 / 19 - 49 cm??? LV Ejection Fraction MOD BP 53.6 % >= 55 % LV Cardiac Index MOD BP 1132.3 cm???/min???m??? LV Diastolic Volume MOD 4C 47.0 cm??? LV Systolic Volume MOD 4C 20.7 cm??? LV Ejection Fraction MOD 4C 56.1 % LV Cardiac Index MOD 4C 1146.1 cm???/min???m??? LV Diastolic Length 4C 6.8 cm LV Systolic Length 4C 5.5 cm LV Diastolic Volume MOD 2C 50.3 cm??? LV Systolic Volume MOD 2C 23.0 cm??? LV Ejection Fraction MOD 2C 54.3 % LV Cardiac Index MOD 2C 1185.9 cm???/min???m??? LV Diastolic Length 2C 7.0 cm LV Systolic Length 2C 5.1 cm LA Volume 39.1 cm??? 18 - 58 / 22 - 52 cm??? LA Volume Index 18.9 cm???/m??? 16 - 28 cm???/m??? M-MODE Aortic Root Diameter MM 2.7 cm MV E Point Septal Separation 0.6 cm AV Cusp Separation MM 2.1 cm DOPPLER AV Peak Velocity 128.8 cm/s AV Peak Gradient 6.6 mmHg MV Area PHT 3.1 cm??? Mitral E Point Velocity 64.7 cm/s Mitral A Point Velocity 83.3 cm/s Mitral E to A Ratio 0.8 MV Deceleration Time 248.7 ms MV E' Velocity 7.7 cm/s Mitral E to MV E' Ratio 8.4 TR Peak Velocity 233.4 cm/s TR Peak Gradient 21.8 mmHg Right Ventricular Systolic Press 26.8 mmHg FINDINGS Left Ventricle Left ventricular ejection fraction is estimated at 55-60 %. Left ventricular cavity size normal. No obvious regional wall motion abnormalities. Right Ventricle Normal right ventricular size. Right ventricular systolic pressure within normal limits. Right Atrium Normal right atrial size. Left Atrium Normal left atrial size. Mitral Valve Structurally normal mitral valve. Trace mitral regurgitation. Aortic Valve Trileaflet aortic valve. No aortic valve stenosis or regurgitation. Tricuspid Valve Structurally normal tricuspid valve. Trace to mild tricuspid regurgitation. Pulmonic Valve Structurally normal pulmonic valve. Trace pulmonic regurgitation. Pericardium No pericardial effusion. Aorta Normal size aortic root and proximal ascending aorta. CONCLUSIONS Left ventricular ejection fraction is estimated at 55-60 %. No obvious regional wall motion abnormalities. No significant valvular dysfunction RVSP estimated at 26 mmHg No pericardial effusion Previewed by: Dr Tirso Maldonado (Electronically Signed) Final Date: 07 March 2023 17:28
== END | disposition home or self-care (01) ==
LOC: RADECHMAIN 13:36
PROVIDERS: ATTEND Family Medicine
DX: R06.02 Shortness of breath (principal); M79.89 Other specified soft tissue disorders
CPT/HCPCS: 93306

== ENCOUNTER → 2023-09-09 | Outpatient (CLI) | payer MEDICARE, OTHER ==
[2023-09-09 18:32] LABS: Bacteria,Urine None Seen (None Seen)
[2023-09-09 19:13] LABS: Basophils # (A) 0.05 X 10*3/uL (0.00-0.10); Basophils % (A) 0.5 %; Eosinophils # (A) 0.16 X 10*3/uL (0.04-0.35); Eosinophils % (A) 1.7 %; HCT 47.5 % (37.2-46.3); HGB 14.3 g/dL (12.0-15.0); Lymphocytes # (A) 1.36 X 10*3/uL (0.90-5.00); Lymphocytes % (A) 14.2 %; MCH 29.2 pg (27.0-32.0); MCHC 30.1 g/dL (32.0-37.0); MCV 96.9 FL (80.0-97.0); Mean Platelet Volume 9.9 FL (9.5-12.2); Monocytes # (A) 0.43 X 10*3/uL (0.20-1.00); Monocytes % (A) 4.5 %; NRBC Per 100 WBC 0 X 10*3/uL (0.00-0.01); Neutrophils % (A) 78.3 %; Platelet Count 258 X 10*3/uL (140-440); RDW 13.8 % (11.5-14.5); WBC 9.58 X 10*3/uL (4.50-10.00)
[2023-09-09 19:30] LABS: % Iron Saturation 18.81 (12.00-45.00); BUN/Creat Ratio 23.14 Ratio (12.00-20.00); Blood Urea Nitrogen 16.2 mg/dL (9.0-27.0); Calcium 9.4 mg/dL (8.7-10.3); Carbon Dioxide 23.1 mmol/L (21.6-31.8); Chloride 104 mmol/L (96-109); Glucose 93 mg/dL (70-110); Iron 60 UG/DL (50-170); Magnesium 1.7 mg/dL (1.5-2.4); Potassium 3.7 mmol/L (3.5-5.5); Sodium 142 mmol/L (135-145); Total Iron Binding Capacity 319 UG/DL (228-460)
[2023-09-09 19:43] LABS: Appearance,Urine Clear (Clear); Bilirubin,Urine Negative (Negative); Blood,Urine Small (Negative); Color,Urine Yellow (Yellow); Ketones,Urine Negative (Negative); Nitrite,Urine Negative (Negative); PH, Urine 5.5; Specific Gravity,Urine 1.031 (1.001-1.030); Urobilinogen,Urine 0.2
== END | disposition home or self-care (01) ==
LOC: LABWHC1 13:58
PROVIDERS: ATTEND Internal Medicine Nephrology
DX: N18.2 Chronic kidney disease, stage 2 (mild) (principal); D63.1 Anemia in chronic kidney disease; N39.0 Urinary tract infection, site not specified; R80.9 Proteinuria, unspecified
CPT/HCPCS: 36415; 80048; 81001; 82043; 82570; 82728; 83540; 83550; 83735; 85025